=== PATIENT | female | born 1975 | race Hispanic/Latino ===

== ENCOUNTER 2019-04-16 20:38 | Inpatient (IN) | payer BC, OTHER ==
[2019-04-16 21:07] LABS: CO2 Tension (PvCO2) 44.5 mmHg (40.0-50.0); Calcium, Ionized 0.84 mmol/L (See Comments:); Chloride 105 mmol/L (98-107); Potassium 5.5 mmol/L (3.5-5.1); Sodium 139 mmol/L (138-145); T. Carbon Dioxide 29.4 mmol/L (22.0-28.0); vO2 Saturation-calc 76.3 % (60.0-85.0)
[2019-04-16 21:21] LABS: Hemoglobin 8.8 g/dL (12.0-16.0); Mean Corpuscular HGB CONC 33.1 g/dL (32.0-36.0); Mean Corpuscular Hemoglobin 29.1 pg (27.0-31.0); Mean Corpuscular Volume 87.8 fL (78.0-98.0); RBC Distribution Width 15.2 % (11.5-14.5); Red Blood Cell (RBC) Count 3.02 mill/uL (4.20-5.40); White Blood Cell (WBC) Count 4.1 thou/uL (4.8-10.8)
[2019-04-16 21:35] LABS: Lactic Acid 1.3 mmol/L (0.5-2.2)
--- NOTE | 2019-04-16 21:36 | CT ---
CT Brain WO Con: 04/16/2019 12:00 AM CLINICAL HISTORY: Altered mental status. IMAGING TECHNIQUE: Multiple CT images were obtained of the brain without IV contrast. COMPARISON: None. FINDINGS: Motion artifact limits image detail. Infarct: No acute infarct evident. Hemorrhage: None.. Hydrocephalus: None.. Basal cisterns: Normal.. Cerebral parenchyma: Normal.. Midline shift: None.. Cerebellum: Normal. Brainstem: Normal. OTHER: Calvarium: Intact.. Visualized Paranasal sinuses: Mild mucosal thickening within the maxillary sinuses.. Extracranial soft tissues:Normal. IMPRESSION: No definite acute intracranial abnormality evident within the limitations of this exam.
[2019-04-16 21:39] LABS: ALT (SGPT) 10 U/L (8-55); AST (SGOT) 22 U/L (5-34); Albumin 3.9 g/dL (3.5-5.0); Alkaline Phosphatase 175 U/L (40-150); Anion Gap 23 mmol/L (10-20); BUN (Urea Nitrogen) 83 mg/dL (7.0-18.7); Bilirubin, Total 1.9 mg/dL (0.2-1.2); CK (CPK) 74 U/L (29-168); Calc. Creatinine Clearance 0 mL/min (70-130); Calcium 7.9 mg/dL (7.8-10.44); Carbon Dioxide 25 mmol/L (22-29); Chloride 98 mmol/L (98-107); Estimated GFR-MDRD 4; Glucose 89 mg/dL (70-105); Potassium 5.5 mmol/L (3.5-5.1); Protein, Total 7.9 g/dL (6.0-8.3); Sodium 140 mmol/L (136-145)
[2019-04-16 21:50] LABS: #Eosinphils 0.2 thou/uL (0.0-0.7); #Lymphocytes 0.8 thou/uL (1.20-3.40); #Monocytes 0.4 thou/uL (0.11-0.59); #Neutrophils 2.7 thou/uL (1.40-6.50); %Eosinophils 5.2 % (0.0-10.0); %Lymphocytes 18.7 % (21.0-51.0); %Monocytes 9.6 % (0.0-10.0); %Neutrophils 66.6 % (42.0-75.0); Mean Platelet Volume 8.3 fL (7.4-10.4); Platelet Count 54 thou/uL (130-400); Platelet Morphology Comment Appears Decreased
--- NOTE | 2019-04-17 00:10 | ULT ---
BILATERAL CAROTID DUPLEX ULTRASOUND: HISTORY: Altered mental status and confusion TECHNIQUE: Grayscale, color-flow and spectral Doppler ultrasound imaging of the extracranial carotid artery syst ems and vertebral arteries was performed bilaterally. FINDINGS: There is minimal atherosclerotic plaque involving the internal carotid arteries bilaterally. The left ICA is tortuous. The peak systolic velocity in the right ICA measures 55.1 cm/s. The peak systolic velocity in the ri ght CCA measures 80.3 cm/s. The peak systolic velocity in the left ICA measures 71.3 cm/s. The peak systolic velocity in the l eft CCA measures 95.7 cm/s. The right IC/CC ration is0.69. The left IC/CC ratio is 0.75. Vertebral flow: antegrade, bilaterally. . IMPRESSION: No hemodynamically significant stenosis of bilateral internal carotid arteries.
[2019-04-17] MEDS ORDERED: Lorazepam 1 MG TAB PO SCH (08:00)
[2019-04-17] MEDS ORDERED: hydrALAZINE 20 MG/ML VIAL SLOW IVP PRN (09:56)
--- NOTE | 2019-04-17 11:12 | HP ---
CHIEF COMPLAINT: Altered mental status. HISTORY OF PRESENT ILLNESS: The history of present illness is very difficult to obtain as the patient is currently in dialysis and she is very upset. She is on the phone, talking with her mom. At times, she is yelling at her and crying and saying over and over in [place] that she thought you were going to come. I did ask her if I could talk to her mom on the phone and her mom explained to me that she had actually called to check on her yesterday and her daughter hung up on her and then says that a few hours later, she apparently had called her brother and told him that she could not walk and could not talk right and was feeling bad, and he called the mom, and she thought that was strange because she had just talked with her earlier in the day. She says that she called her daughter and she sounded bad and apparently somewhere in between this time, she called EMS and came to the hospital. It appears, however, through conversation with the daughter and the mom that it seems that the daughter is upset with the mom not coming to see about her. Apparently, the mother lives in [place], which was verified with the mother and the daughter feels like she deserves more support from her mom with regard to her children. Her mother on the other hand says that she is , but her "left" and her daughter made a decision to move to [place], where it was very difficult for the mom to come to visit her, so it appears as if it is more or less a conflict between mother and daughter. The daughter, at times, sounds slurred with her speech, but when she gets upset, her speech becomes more clear. She can speak clearly both in Setswana and in [place]. REVIEW OF SYSTEMS: This is unobtainable as the patient is currently too upset to answer my questions. PAST MEDICAL HISTORY: Significant for; 1. End-stage renal disease, on hemodialysis. 2. Hypertension. 3. Hepatitis C. PAST SURGICAL HISTORY: She has had a x2, tubal ligation, and hematoma removal. ALLERGIES: TO HEPARIN AND ADHESIVE TAPE. SOCIAL HISTORY: Taken from previous records includes she is , has 5 children, nonsmoker, and nondrinker. FAMILY HISTORY: Significant for diabetes and chronic kidney disease. MEDICATIONS: Her medications are taken. We will need to actually reconcile. PHYSICAL EXAMINATION: VITAL SIGNS: Blood pressure was 144/79, heart rate 83, respiratory rate of 18, temperature is 98.7, and O2 saturation is 92% on room air. HEENT: Pupils are equal, round, and reactive. Extraocular muscles are intact. Sclerae anicteric. Throat; no erythema, no exudates. NECK: No adenopathy. No bruits. LUNGS: Clear to auscultation. There is no wheezing, no rales, no rhonchi. CARDIOVASCULAR: She has a normal S1 and S2. There is no S3 or S4. No murmurs, clicks, or rubs. ABDOMEN: Obese. It is soft, nontender, and nondistended. Positive for bowel sounds. No rebound. No guarding. EXTREMITIES: There is no calf tenderness. No joint effusions. She does have some chronic venous stasis changes. NEUROLOGIC: She is moving all extremities. LABORATORY DATA: Sodium 139, potassium 5.5, chloride is 105, BUN of 83, creatinine 10.87, glucose is 89, total bilirubin is 1.9. White blood cell count is 4.1, hemoglobin is 8.8, hematocrit is 26.5, and platelet count is 54. ASSESSMENT AND PLAN: 1. Altered mental status. I think this is more psychological than any type of metabolic abnormality as previously stated. When I came to see the patient, she was in a fairly heated argument with her mother with regard to her feeling that her mother does not support her enough and she was able to speak clearly. We would likely can get a social work consult to see if the patient has any needs with regard to transportation or other outpatient needs to help assist her. 2. End-stage renal disease, on hemodialysis. Consult Nephrology for continued hemodialysis. 3. Hypertension. We will need to reconcile and restart her home medications and likely we can monitor her overnight for any signs of infection such as fever, elevated white blood cell count; however, so far, none of this has been evident. Lactic acid was negative. 4. Pancytopenia. This appears to be chronic dating back to 2013 and could likely be due to her history of hepatitis C. Further recommendations to follow. Job ID: [id number]
[2019-04-17] MEDS: Acetaminophen 325 MG TAB PO PRN (12:22)
[2019-04-17] MEDS ORDERED: Lorazepam 2 MG/ML VIAL SLOW IVP ONE (13:00)
--- NOTE | 2019-04-17 13:31 | PDOC.EVN ---
Event Note - Event Note Event Note: Patient noted to develop a temperature of 103, and her Oxygen saturations dropped. Will check a CXR, and check blood cultures. Start empiric antibiotics, and move her to the IMCU.
[2019-04-17 13:32] VITALS: BMI 36.8
[2019-04-17] MEDS ORDERED: Vancomycin HCl 1 GM in Premix Bag 1 BAG IVPB SCH ×2 (13:45→14:00)
--- NOTE | 2019-04-17 13:55 | RAD ---
PORTABLE CHEST 1 VIEW: DATE: 04/17/2019. TIME: 1:36 p.m. HISTORY: Fever and hypoxemia. FINDINGS/IMPRESSION: The heart is enlarged. There is a right-sided dialysis catheter with tips in the right atrium. Ther e is pulmonary vascular congestion. No lobar consolidation, pneumothoraces, or large effusions are s een. POS: OFF
[2019-04-17] MEDS ORDERED: Piperacillin/Tazobactam 3.375 GM in Sodium Chloride 0.9% 100 ML IVPB SCH (15:00)
[2019-04-17 15:19] LABS: Actual Bicarbonate (HCO3a) 27.2 mEq/L (22-28); Base Excess (BEa) 3.2 mEq/L (-2.0 to +3.0); Calcium, Ionized 0.99 mmol/L (1.12-1.30); Carboxyhemoglobin (COHb) 1.6 gm% (0.0-3.0); Hemoglobin (Hb) 8.3 g/dL (12.0-16.0); O2 Tension (PaO2) 72.8 mmHg (80.0-100.0); Potassium - ABG Lab 3.77 mmol/L (3.70-5.30); pH, Arterial 7.46 (7.35-7.45)
[2019-04-17 15:20] LABS: Puncture Site RRA
[2019-04-17] MEDS: Piperacillin/Tazobactam 2.25 GM in Sodium Chloride 0.9% 100 ML IVPB SCH ×2 (16:16→20:47)
[2019-04-17 16:26] LABS: ALT (SGPT) 8 U/L (8-55); AST (SGOT) 19 U/L (5-34); Albumin 3.2 g/dL (3.5-5.0); Alkaline Phosphatase 145 U/L (40-150); Anion Gap 18 mmol/L (10-20); BUN (Urea Nitrogen) 43 mg/dL (7.0-18.7); Bilirubin, Total 2.1 mg/dL (0.2-1.2); Calc. Creatinine Clearance 15 mL/min (70-130); Carbon Dioxide 24 mmol/L (22-29); Chloride 100 mmol/L (98-107); Estimated GFR-MDRD 7; Globulin 3.5 g/dL (2.4-3.5); Glucose 88 mg/dL (70-105); Potassium 3.9 mmol/L (3.5-5.1); Protein, Total 6.7 g/dL (6.0-8.3); Sodium 138 mmol/L (136-145)
--- NOTE | 2019-04-17 18:11 | MRI ---
BRAIN MRI WITHOUT CONTRAST: 04/17/19 COMPARISON: None. HISTORY: Altered mental status, expressive aphasia. TECHNIQUE: Multiplanar, multisequence MR imaging of the brain is obtained without contrast. FINDINGS: The diffusion weighted imaging demonstrates no evidence for acute infarction. The axial gradient echo imaging demonstrates no evidence for intracranial hemorrhage. The T2 weighted imaging is quite limited secondary to persistent patient head motion artifact. There is mild mucosa thickening involving the ethmoid air cells and the mastoid air cells. Arterial flow voids at the axial level of the skull base appear grossly unremarkable on the T2 weight ed imaging. No midline shift or mass effect. No ventricular enlargement. Regional bone marrow signal intensity is grossly unremarkable. IMPRESSION: Limited study secondary to motion artifact demonstrating no evidence for acute infarction. POS: [place]
--- NOTE | 2019-04-17 20:58 | CON ---
DATE OF CONSULTATION: 04/17/2019 CONSULTING PHYSICIAN: Kiko Logan MD REASON FOR CONSULT: End-stage renal disease. REASON FOR ADMISSION: Altered mentation. HISTORY OF PRESENT ILLNESS: This is a 43-year-old female with history of end-stage renal disease, hypertension was taken to the hospital because of altered mentation and uremic and hyperkalemia. She had dialysis and was feeling better. No chest pain or palpitation. PAST MEDICAL HISTORY: Positive for end-stage renal disease, hypertension, hepatitis C. PAST SURGICAL HISTORY: , tubal ligation, and hematoma. HOME MEDICATIONS: 1. Bicitra. 2. Procardia. 3. Calcium carbonate. ALLERGIES: TO HEPARIN. SOCIAL HISTORY: No smoking, alcohol, or illicit drugs. FAMILY HISTORY: No history of kidney disease. REVIEW OF SYSTEMS: CONSTITUTIONAL: Negative for weight loss or gain, ability to conduct usual activities. SKIN: Negative for rash, itching. EYES: Negative for double vision, pain. ENT/MOUTH: Negative for nose bleeding, neck stiffness, pain, tenderness. CARDIOVASCULAR: Negative for palpitations, dyspnea on exertion, orthopnea. RESPIRATORY: Negative for shortness of breath, wheezing, cough, hemoptysis, fever or night sweats. GASTROINTESTINAL: Negative for poor appetite, abdominal pain, heartburn, nausea, vomiting, constipation, or diarrhea. GENITOURINARY: Negative for urgency, frequency, dysuria, nocturia. MUSCULOSKELETAL: Negative for pain, swelling. NEUROLOGIC/PSYCHIATRIC: Negative for anxiety, depression. ALLERGY/IMMUNOLOGIC: Negative for skin rash, bleeding tendency. Rest are negative review of systems. PHYSICAL EXAMINATION: GENERAL: This is a well-built female, in no apparent distress. VITAL SIGNS: Temperature 98.7, pulse , blood pressure 134/81. LABORATORY DATA: Potassium 5.5, BUN is 83, creatinine is 10.9. ASSESSMENT AND PLAN: 1. End-stage renal disease. Continue on dialysis as tolerated. 2. Edema. 3. Hyperkalemia. 4. Acidosis. 5. Anemia of chronic disease. 6. Hypertension. 7. Uremia. . We will have dialysis as tolerated. Job ID: [id number]
[2019-04-18] MEDS: Piperacillin/Tazobactam 2.25 GM in Sodium Chloride 0.9% 100 ML IVPB SCH ×3 (02:56→20:38)
[2019-04-18 05:11] LABS: #Basophils 0.1 thou/uL (0.0-0.2); #Eosinphils 0.2 thou/uL (0.0-0.7); #Lymphocytes 0.6 thou/uL (1.20-3.40); #Monocytes 0.7 thou/uL (0.11-0.59); %Eosinophils 2.2 % (0.0-10.0); %Lymphocytes 8.5 % (21.0-51.0); %Monocytes 9.6 % (0.0-10.0); %Neutrophils 78.7 % (42.0-75.0); Mean Corpuscular HGB CONC 32.9 g/dL (32.0-36.0); Mean Corpuscular Hemoglobin 29.1 pg (27.0-31.0); Mean Corpuscular Volume 88.5 fL (78.0-98.0); Mean Platelet Volume 8.8 fL (7.4-10.4); Platelet Count 37 thou/uL (130-400); RBC Distribution Width 15.5 % (11.5-14.5); Red Blood Cell (RBC) Count 2.73 mill/uL (4.20-5.40); White Blood Cell (WBC) Count 7.6 thou/uL (4.8-10.8)
[2019-04-18 05:17] LABS: Anion Gap 20 mmol/L (10-20); BUN (Urea Nitrogen) 50 mg/dL (7.0-18.7); Calc. Creatinine Clearance 14 mL/min (70-130); Calcium 7.9 mg/dL (7.8-10.44); Carbon Dioxide 24 mmol/L (22-29); Chloride 100 mmol/L (98-107); Estimated GFR-MDRD 6; Glucose 65 mg/dL (70-105); Potassium 5.2 mmol/L (3.5-5.1); Sodium 139 mmol/L (136-145)
[2019-04-18] MEDS ORDERED: HOLD VANCOMYCIN FOR LEVEL >20 FS SCH (12:00)
[2019-04-18] MEDS ORDERED: Vancomycin HCl 1 GM in Premix Bag 1 BAG IVPB SCH (12:00)
[2019-04-18] MEDS ORDERED: Vancomycin HCl 750 MG in Sodium Chloride 0.9% 250 ML 250 ML IVPB SCH (12:00)
[2019-04-18] MEDS ORDERED: Vancomycin HCl 1.25 GM in Sodium Chloride 0.9% 250 ML 250 ML IVPB SCH (12:00)
[2019-04-18] MEDS ORDERED: Vancomycin Sliding Scale 1 EACH FS ONE (12:00)
--- NOTE | 2019-04-18 12:27 | PDOC.HOSPP ---
- Subjective Subjective: Seen and examined. Patient slow to respond to questions. Somewhat confused, though she does know her name and that she is in the hospital. Patient does not know why she is in the hospital despite being told multiple times. Patient emotional and starts crying easily and upset that she cannot remember things. Patient denies pain currently. Breathing well. Denies diarrhea. - Objective Vital Signs & Weight: Vital Signs (12 hours) Temp Pulse Ox 04/18/19 08:03 98 04/18/19 08:00 98.5 F 04/18/19 03:00 98.9 F Weight Admit Weight 230 lb 12.8 oz Weight 201 lb 11.2 oz Most Recent Monitor Data Heart Rate from ECG 85 NIBP 97/60 NIBP BP-Mean 72 Respiration from ECG 19 SpO2 100 I&O: 04/17/19 04/18/19 04/19/19 06:59 06:59 06:59 Intake Total 320 210 Output Total 0 0 Balance 320 210 Result Diagrams: 04/18/19 04:57 04/18/19 04:57 Radiology Reviewed by me: Yes (MRI brain) ROS - Medication Medications: Active Medications Generic Name Dose Route Start Last Admin Trade Name Freq PRN Reason Stop Dose Admin Acetaminophen 650 mg 04/17/19 09:56 04/17/19 12:22 Tylenol PO 650 mg Q4H PRN Administration Headache/Fever/Mild Pain (1-3) Lactulose 20 gm 04/18/19 09:00 04/18/19 09:52 Lactulose PO 20 gm QID CHUCHO Administration Sodium Chloride 10 ml 04/17/19 21:00 04/18/19 09:57 Flush - Normal Saline IVF 10 ml Q12HR CHUCHO Administration - Exam ill appearing Eye: PERRL Eye - other findings: EOMI ENT: normocephalic atraumatic, moist mucosa Neck: supple, symmetric, no JVD Heart: RRR, no murmur, no gallops, no rubs, III/IV Respiratory: CTAB, no wheezes, no rales, no ronchi Gastrointestinal: soft, non-tender, no guarding, no rigidity Gastrointestinal - other findings: obese Extremities: 1+ LE edema Skin: no lesions Neurological: CN's grossly intact, normal sensation to touch, no focal deficits Musculoskeletal: generalized weakness Psychiatric: oriented to person, oriented to place. negative: normal affect, normal behavior Hosp A/P (1) Toxic metabolic encephalopathy Code(s): G92 - TOXIC ENCEPHALOPATHY Status: Acute (2) ESRD (end stage renal disease) on dialysis Code(s): N18.6 - END STAGE RENAL DISEASE; Z99.2 - DEPENDENCE ON RENAL DIALYSIS Status: Chronic (3) Hepatitis C Code(s): B19.20 - UNSPECIFIED VIRAL HEPATITIS C WITHOUT HEPATIC COMA Status: Chronic (4) HTN (hypertension) Code(s): I10 - ESSENTIAL (PRIMARY) HYPERTENSION Status: Chronic - Plan Plan: [facility] Nephrology consultation, recommendations appreciated Continue HD per nephrology Patient was empiracally started on ABX. I do not see acute infectious process at this time If cultrues remain negative at 48 hours, consider de escilation of antibiotics Patient with elevated Ammonia, start Lactulose for hepatic encephalopathy - titrate to loose stools If encephalopathy not controlled on Lactulose alone would recommend GI consultation and possible Rifaximin therapy Will need outpatient follow up for Hep C BP control GI and DVT PPX
[2019-04-18 15:39] LABS: Vancomycin, Random 19.1 ug/mL (See Comment); Vancomycin, Trough 18.8 ug/mL
--- NOTE | 2019-04-18 15:54 | PRG ---
DATE OF SERVICE: 04/18/2019 SUBJECTIVE: Patient was seen and examined at bedside and overnight events noted. Patient denies any shortness of breath or chest pain or palpitation. No history of nausea or vomiting or diarrhea or fever or chills or cramps. OBJECTIVE: GENERAL: This is a well-built female in no apparent distress. VITAL SIGNS: Temperature 97.7. Heart rate 84. Respiratory rate 20. Blood pressure 108/62. HEENT: Atraumatic, normocephalic. Oral mucosa is moist NECK: Supple. CARDIOVASCULAR: S1, S2 heard. Rate and rhythm regular. RESPIRATORY: Clear to auscultation. GASTROINTESTINAL: Abdomen is soft. MUSCULOSKELETAL: No tenderness. No edema. DERMATOLOGIC: No skin rash. NEUROLOGIC: Alert and awake and oriented X3. No focal neurologic deficits. Moving all the extremities. PSYCHIATRIC: Mood and affect normal. LABORATORY DATA: Potassium is 5.2, BUN is 50, creatinine ASSESSMENT AND PLAN: 1. End-stage renal disease, continue on dialysis TTS as tolerated. 2. Edema. 3. Acidosis. 4. Anemia. 5. History of hypertension. 6. Noncompliance, counseled. 7. We will continue on dialysis as tolerated. Job ID: [id number]
--- NOTE | 2019-04-19 07:26 | CON ---
DATE OF CONSULTATION: HISTORY OF PRESENT ILLNESS: Marzena Hodge is a 43-year-old obese female, who has been in the hospital enough for several days. She was to go to MICU or floor. She came to the ICU, reason for consult. She is here with symptoms of confusion. Previous history of multiple medical problems. In the ICU, she is awake, responsive. Denies any pain. Denies any cough. Denies any chest pain. Denies any prior history of pneumonia, TB, or asthma. Nonsmoker. PAST MEDICAL HISTORY: Apparently from the records includes noncompliant renal failure, hypertension. PAST SURGICAL HISTORY: Previous surgeries are access and tubal ligation. MEDICATIONS: 1. Procardia 60. 2. Calcium. 3. Sodium bicarb. ALLERGIES: APPARENTLY, HEPARIN. SOCIAL HISTORY: No alcohol or tobacco. REVIEW OF SYSTEMS: Ten-point negative. PHYSICAL EXAMINATION: VITAL SIGNS: Room air sats 98, blood pressure 108/62, pulse respiratory rate 18 CHEST: Decreased breath sounds. No wheezing. CARDIAC: Normal S1 and S2. No gallops. ABDOMEN: No mass. LABORATORY DATA: Creatinine 7.2. White count 7000, platelet count is too low at 37, severe thrombocytopenic. Hemoglobin and hematocrit are unremarkable. Chest x-ray shows cardiomegaly. CT head was negative. Heart was enlarged. IMPRESSION: 1. Metabolic encephalopathy. 2. Febrile illness. 3. Chronic renal failure. 4. Hypertension. 5. Obesity. 6. Nonsmoker. PLAN: From a Pulmonary standpoint, I feel we should start antibiotics for presumed sepsis syndrome which I agree, anti-Staph coverage, still our cultures are negative. Dialysis per Nephrology. Supportive care while in the ICU. She appears to be in no distress at this time. Pulmonary will follow while in the ICU. Please note this is a consultation note, 70 minutes, 50% direct patient care. Job ID: [id number]
[2019-04-19 08:15] LABS: Vancomycin, Trough 16.9 ug/mL
--- NOTE | 2019-04-19 08:19 | PRG ---
DATE OF SERVICE: 04/19/2019 SUBJECTIVE: This morning, she is awake, alert, and responsive. She is less encephalopathic. OBJECTIVE: VITAL SIGNS: Blood pressure is 130/65, saturations 96% on 2 L, respirations 18. CHEST: Decreased breath sounds, no wheezing. CARDIAC: Normal S1, S2. No gallops. ABDOMEN: No masses. Microbiology cultures so far negative. ASSESSMENT: 1. Chronic renal failure. 2. Encephalopathy. 3. Possibly sepsis. Continue vanc. Continue supportive care. We will follow. Job ID: [id number]
[2019-04-19] MEDS: Piperacillin/Tazobactam 2.25 GM in Sodium Chloride 0.9% 100 ML IVPB SCH ×2 (09:49→21:02)
[2019-04-19 09:53] LABS: INR-International Normal Ratio 1.6; PTT 39.7 SEC (22.9-36.1); Prothrombin Time 18.8 SEC (12.0-14.7)
[2019-04-19 10:06] LABS: Mean Corpuscular HGB CONC 32.1 g/dL (32.0-36.0); Mean Corpuscular Hemoglobin 28.9 pg (27.0-31.0); Mean Corpuscular Volume 89.8 fL (78.0-98.0); Mean Platelet Volume 9.2 fL (7.4-10.4); Platelet Count 56 thou/uL (130-400); RBC Distribution Width 15.2 % (11.5-14.5); Red Blood Cell (RBC) Count 2.77 mill/uL (4.20-5.40)
[2019-04-19 10:08] LABS: CRP (Inflammatory) 10.14 mg/dL (= or < 0.5); Complement-C4 28.2 mg/dL (15-57)
[2019-04-19 10:56] LABS: Band 12 % (5-11); Eosinophils 11 % (0-10); Lymphocytes 12 % (21-51); MDiff Complete? YES; Monocytes 6 % (0-10); Myelocyte 1 % (0-0); Neutrophil 57 % (42-75); Platelet Morphology Comment Appears Decreased; Polychromasia SLIGHT = 2-3 cells (100X) (0-2/hpf)
[2019-04-19 10:58] LABS: Ovalocytes SLIGHT = 2-5 cells (100X) (0-1/hpf)
--- NOTE | 2019-04-19 13:01 | PRG ---
DATE OF SERVICE: 04/19/2019 SUBJECTIVE: The patient is seen and examined at the bedside. She is getting dialyzed as we speak. She has some neck pain, which is going on for years according to her, but she would like to know of what is causing that. Her appetite is good. She had several watery bowel movements today. Her mental condition is improved. OBJECTIVE: VITAL SIGNS: Blood pressure is 125/77, pulse is 76, respirations 16, and O2 saturation is 100% on room air. HEENT: Her head is atraumatic and normocephalic. Eyes are PERRLA. Sclerae are nonicteric. Oral mucosa is moist. NECK: Supple. LUNGS: Clear. HEART: S1 and S2 normal. ABDOMEN: Soft, nontender. Bowel sounds are present. No organomegaly. EXTREMITIES: No clubbing or cyanosis. There is 1+ peripheral edema similar bilaterally on both lower extremities. NEUROLOGICAL: She follows my commands. She moves her all 4 extremities. There are no any motor or sensory deficits. LABORATORY DATA: Labs showed a white count of 8.0, hemoglobin 8.0, hematocrit 24.9, and platelet count is 56,000. Ammonia 25. Lactate dehydrogenase 290. C-reactive protein 10.14. Procalcitonin 42.33. C-complement; C3 is 63, which is low and C4, which is 28.2, which is normal. Vancomycin trough 16.9. Blood cultures x2 within normal limits. IMPRESSION: 1. Sepsis of unclear etiology. We will continue broad-spectrum antibiotics with vancomycin and Zosyn. 2. End-stage renal disease, on hemodialysis. We will continue per Dr. Cast's recommendation. 3. Altered mental status, resolved. 4. Diarrhea secondary to lactulose use. We will change this dosing to twice a day from 4 times a day since she has multiple watery bowel movements. 5. Pancytopenia, most likely related to liver cirrhosis, which is possibility, although she has never been diagnosed with that thus far as we know. 6. Hepatitis C, per history, status post not completed treatment. 7. Hypertension. DISCUSSION: We will get ID, Dr. Major, involved. We will continue IV antibiotics, vancomycin and Zosyn. We will continue hemodialysis. She has some blood work sent out and we are waiting for that to come back, lupus panel. Job ID: [id number]
--- NOTE | 2019-04-19 13:12 | PRG ---
DATE OF SERVICE: 04/19/2019 SERVICE: Nephrology. SUBJECTIVE: A 43-year-old obese female with known history of end-stage renal disease from unclear etiology, possibly TTP given relationship with preeclampsia, admitted due to acute mental status changes. The patient also developed fever after hemodialysis and was started on broad-spectrum antibiotics. She reports feeling better. Nursing staff reported that the patient has get hypoxic while asleep. OBJECTIVE: VITAL SIGNS: Temperature 98.1, pulse 73, respiratory rate 18, SpO2 of 100% on 3 L nasal cannula, blood pressure is 133/65. GENERAL: Morbidly obese female, in no obvious distress. Afebrile. Anicteric. Acyanotic. HEENT: Normocephalic, atraumatic. Oral mucosa is moist. CARDIOVASCULAR: Regular rhythm and rate with systolic murmur. RESPIRATORY: Fair air entry bilateral with no obvious crackle or rhonchi or use of accessory muscles. GI: Morbidly obese, soft, nontender, nondistended with normal bowel sounds. EXTREMITIES: Grossly normal looking with no obvious edema. SKIN: Multiple hyperpigmented areas as well as papules and de-roofed pustules noticed all over the body, especially on the back. Some excoriation pettit also were noted. RESTAURANT LEAD: Conscious and alert and oriented x3 with appropriate mental status. The patient moves all extremities. DIAGNOSTIC DATA: CBC showed WBC count of 8, hemoglobin of 8.0, MCV of 89.8, platelet of 56. There is no renal panel today. ASSESSMENT: 1. End-stage renal disease, on maintenance hemodialysis. Last hemodialysis was on Tuesday. The patient is due for dialysis today. She will be dialyzed for 3-1/2 hours with UF as tolerated. Etiology of end-stage renal disease is unclear, but there is a concern for TTP given that end-stage renal disease started after , and the patient was told she had preeclampsia. 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 Given history of preeclampsia and renal failure as well as thrombocytopenia. The patient also has some skin rashes. 3. Hypertension: Control is acceptable. 4. Morbid obesity with possible obstructive sleep apnea. The patient has nocturnal desaturation at nights. 5. Secondary hyperparathyroidism. 6. History of hepatitis C, status post treatment: It is unclear whether the patient has completed therapy. 7. Liver cirrhosis. 8. Acute encephalopathy: Etiology is unclear, but hepatic encephalopathy is a concern as well as acute metabolic encephalopathy from sepsis. 9. Sepsis: The patient is on broad-spectrum antibiotics. Etiology is unclear. Development of fever associated with tachycardia and tachypnea after hemodialysis is concerning for bacteremia, but blood cultures so far has been no growth. PLAN: 1. We will dialyze the patient today for 3.5 hours with UF as tolerated. 2. We will get blood smear to look for schistocytes. We will also get LDH, CRP, ESR, antinuclear antibody with reflex. We will also get hepatitis C, PCR with reflex to quantitative and qualitative. We will also get an LDH as well as coagulation panel. 3. The patient can be transferred to the floor from Nephrology point of view as she seems hemodynamically stable. Many thanks for involving us in the care of this patient. We will continue to follow along with you. Job ID: [id number]
[2019-04-19] MEDS ORDERED: ISOVUE-370 76%-LOCM 1 ML ONE (16:18)
[2019-04-19] MEDS: Vancomycin HCl 500 MG in Sodium Chloride 0.9% 100 ML IVPB SCH (18:20)
--- NOTE | 2019-04-19 20:26 | CT ---
CT OF THE ABDOMEN AND PELVIS WITH IV CONTRAST INDICATION: Left lower quadrant abdominal pain COMPARISON: CT the abdomen dated May 13, 2003 FINDINGS: ABDOMEN: Lung bases: There is bibasilar atelectasis Liver: There is cirrhotic morphology of the liver. There is recanalization of the umbilical vein. Gallbladder: Cholelithiasis Pancreas: Normal. Adrenal glands: Normal. Spleen: Splenomegaly measuring 16.3 cm. 3 new hypodensities within the central spleen. The largest me asures 14.5 mm Kidneys: Atrophic Retroperitoneum of the upper abdomen: Shotty appearing lymph nodes within the retroperitoneum. No pat hologically enlarged lymph nodes are present. Pelvis: Small and large bowel: Normal Bladder: Decompressed Rectal and perirectal soft tissues:Normal. Reproductive structures: Normal. Free fluid in pelvis: No free fluid is evident. Lymphadenopathy pelvis: No lymphadenopathy is evident. Osseous structures: Diffuse sclerosis likely related to renal osteodystrophy. No acute fracture or gary bluxation demonstrated. There is scattered degenerative and osteoarthritic changes. IMPRESSION: 1. Cirrhosis with findings of portal hypertension. 2. New splenic hypodensities are nonspecific. Findings may reflect metastatic disease, lymphoma or in fectious etiology such as fungal disease or TB. Contrasted multiphase CT examination may be helpful for further characterization. 3. Cholelithiasis 4. Mild anasarca. 5. Renal osteodystrophy
[2019-04-19] MEDS: Rifaximin 550 MG TAB PO SCH (21:02)
--- NOTE | 2019-04-20 01:13 | CON ---
DATE OF CONSULTATION: REASON FOR CONSULT: Confusion with elevated ammonia level, end-stage renal disease, and fever. HISTORY OF PRESENT ILLNESS: Ms. Hodge is a 43-year-old female who was admitted to this hospital 3 days ago on 04/16/2019. She presented that night with family who has noted that she had called them, and she was confused, stuttering, and repeating herself. She seemed normal earlier that evening. She was brought to the emergency room. She had missed her dialysis on Tuesday. She had temperature of 99.9. Apparently, she spiked as high as 103 when she was put in the ICU. She had a white count of 4, platelet count of 54. INR 1.6. On admission was hyperkalemic with potassium of 5.5, creatinine 10, BUN 83, bilirubin 1.8, alkaline phosphatase 175, AST and ALT of 22 and 16, albumin of 3.9, and total protein of 7.9. An ammonia level done on 04/16 was normal. This was repeated on 04/17 and was 74. Now, the patient is a little bit more alert. Today, she notes that she has a history of hepatitis C and cirrhosis. She has had hepatitis C since age 14. She has had a previous biopsy in [place]. She is on end-stage renal disease from hypertension. She was previously treated in [place] and moved here about a month ago. She reports that when she moved here she had to get new medications, but she could not get a refill on lactulose. She has been without it for about 2 weeks. Presently, she denies any cough or shortness of breath, dysuria, frequency, urgency, abdominal pain, diarrhea, nausea, or vomiting. She has had blood cultures drawn on the , which are pending, no growth thus far. Immunology workup was notable for normal complement level C3 and slightly elevated C4. She had a sedimentation rate of 32. Her white count has never gone up. She has 12% bands noted today. PAST MEDICAL HISTORY: 1. She does have history of hepatitis C. 2. History of cirrhosis biopsy-proven in [place]. 3. End-stage renal disease secondary to hypertension, on dialysis. 4. Hypertension. PAST SURGICAL HISTORY: 1. Foot surgery. 2. Tubal ligation. 3. . 4. Vascular access surgeries. ALLERGIES: HEPARIN AND ADHESIVE TAPE. SOCIAL HISTORY: She is , has 5 children, nonsmoker, is . Family lives in [place]. She is living here now, and she just moved here recently. FAMILY HISTORY: Diabetes, chronic kidney disease. MEDICATIONS: She is taking lactulose at home, but she cannot tell me a lot about what else she is taking at home. List here notes she had 1. Nifedipine. 2. Bicitra. 3. Calcium carbonate. 4. Hydrocortisone cream. Present medications here in the hospital 1. Acetaminophen. 2. Vancomycin IV. 3. Hydralazine p.r.n. 4. Lactulose 20 b.i.d. 5. Zosyn. 6. Vancomycin. REVIEW OF SYSTEMS: The patient notes she has no headache. No facial or sinus congestion. No ear pain. No throat pain. No cough or shortness of breath or dyspnea. No dysphagia or odynophagia. No nausea, no vomiting, no diarrhea. She denies abdominal pain. She actually is very hungry and wants more to eat. She has no dysuria, urinary frequency, or urgency. She denies any vaginal discharge or vaginal bleeding. She has no change in menstrual cycles. She has no rashes, myalgias, or arthralgias. Denies issues with depression or anxiety. PHYSICAL EXAMINATION: VITAL SIGNS: T-max was 103 on 04/17. In the past 24 hours, T-max has been 98.1. Pulse 90, blood pressure , respirations 18. GENERAL: She is resting comfortably in bed. She is alert and oriented to person, place, and time. She is able to give me a pretty good history. HEENT: She is nonicteric. Oropharynx, no lesions. NECK: Supple without any adenopathy. LUNGS: Clear. HEART: Regular rate and rhythm. ABDOMEN: Slightly protuberant. There is no overt shifting dullness or fluid waves. No abdominal masses. No hernias. EXTREMITIES: No clubbing, cyanosis, or edema. SKIN: Without rash or lesions. LABORATORY DATA: Today, sodium 139, potassium 5.2, BUN and creatinine are 50 and 7.62, bicarb 24, anion gap 20, ammonia 25, CRP 10, procalcitonin 42, TSH 3.2, bilirubin 2.1, AST 19, and ALT , alkaline phosphatase 148. Ammonia was as high as 74 yesterday. ASSESSMENT: 1. Admitted with altered mental status. Ultimately seems this is hepatic encephalopathy related to what she has had in the past. She was out of the medication, and that may have been the cause of her exacerbation, but also she had fever when she came in, and evaluation so far has been nondiagnostic. She has had a chest x-ray, a brain MRI, and a CT of her brain. She is going to have a CT scan per Infectious Disease coming up, and she has had echocardiogram ordered. Vascular infection is concerning because she is a dialysis patient. With her cirrhosis, she is high risk for infection. She does not seem to have any SBP by physical exam, does not seem to have any overt ascites but is empirically covered presently. 2. Hepatitis C. Apparently, this has been attempted to be treated in the past but was unsuccessful. It sounds like this was done a couple of times in the [place]. 3. Hepatic encephalopathy, improved. RECOMMENDATIONS: 1. We would add Xifaxan for treatment of her hepatic encephalopathy. 2. Agree with CAT scan. We will check an alpha fetoprotein as well for hepatoma screening. We will follow along with you. There have been no signs of acute GI bleeding. 3. I agree with in-depth workup for infection as she has elevated CRP and is at high risk for infection and being in end-stage renal disease and cirrhosis. We will follow along with you. Job ID: [id number]
--- NOTE | 2019-04-20 01:19 | CON ---
DATE OF CONSULTATION: 04/19/2019 REASON FOR CONSULTATION: Fever. HISTORY OF PRESENT ILLNESS: This is a 43-year-old with history of hypertension, hepatitis C, and end-stage renal disease on hemodialysis with tunneled hemodialysis catheter in right IJ position. According to the patient, she developed renal insufficiency following her last from eclampsia or preeclampsia reportedly. At this time, she developed delirium associated with a temperature elevation of 103. BP was 140/70 and temperature 98.7, but had been 103 previously. O2 saturation 92% on room air. Lungs were clear. The heart exam showed normal findings. Abdomen was soft, nondistended or tender. Sodium 139, creatinine 10.8, white cell count 4.1, and platelets 54,000. Initial lab data included ammonia of 74. Thus far, we have 2 sets of blood cultures with no growth at 48 hours. Brain MRI was not remarkable. Chest x-ray with cardiomegaly, pulmonary vascular congestion. Complement was 63 and bilirubin 1.9. Transaminases normal. Alkaline phosphatase 175. Previous hepatitis C RNA PCR was 21,000 in 2013. Currently, Ms. Hodge is awake. She is still a little bit confused and had a hard time in giving me an exact timeline of her symptoms and still, but better than on admission. Denies headaches. No visual symptoms. No back pain. No dyspnea. Little a bit of cough. No abdominal pain. No genitourinary symptoms. PAST MEDICAL HISTORY: Chronic hepatitis C, untreated; end-stage renal disease, on hemodialysis, the etiology for the ESRD is not clear, but presumably after one of her pregnancies; hypertension. PAST SURGICAL HISTORY: and tubal ligation. ALLERGIES: HEPARIN. SOCIAL HISTORY: , 5 children. Never smoker. No alcoholic beverage use or drug use. FAMILY HISTORY: Type 2 diabetes and chronic renal insufficiency. CURRENT MEDICATIONS: 1. Apresoline. 2. Lactulose. 3. Zosyn. 4. Vancomycin. 5. Sliding scale. PHYSICAL EXAMINATION: VITAL SIGNS: T-max 103 two days ago at 5 p.m., has been afebrile since. BP 150/69, pulse 83, respirations 19, and O2 saturation 95%. SKIN: Areas of folliculitis in the back region with self excoriation, more like prurigo nodularis type of finding in the skin from self excoriation, probably related to end-stage renal disease associated pruritus. The patient has a tunneled hemodialysis catheter in right IJ position and peripheral IV access. No lymphadenopathy. GENERAL: Awake, appears in no distress. HEENT: Ocular movements conjugate. Sclerae white. Oral cavity dry. Quite a few teeth in place with desiccation of the enamel. NECK: Supple. No jugular vein distention. LUNGS: Symmetric, clear breath sounds. HEART: S1 and S2, regular rate without murmurs. ABDOMEN: Soft, not distended or tender. No ascites. No bladder distention. MUSCULOSKELETAL: No joint inflammatory activity. Pulses are 1+ in dorsalis pedis. 1+ edema. Moves extremities equally. NEUROLOGIC: She is awake, knows her name. She knew she was in the hospital, but after that she had a quite a bit of difficulty in giving me a proper timeline of her clinical symptom development and other items in her past history that she could not recall very well. LABORATORY DATA: Latest lab results with a potassium of 5.2, LDH 290, CRP 10.14. White cell count 8.0, hemoglobin 8, MCV 89, platelets 56 with 12% bands. IMAGING: Chest x-ray, as discussed above. ASSESSMENT: 1. End-stage renal disease, presumably secondary to complications following one of her pregnancies. 2. Hemodialysis through a tunneled catheter in the right IJ position. 3. Prurigo nodularis. 4. Recurrent fever events for the past many weeks, sometimes related to dialysis. 5. Chronic hepatitis C, untreated. 6. Encephalopathy, a part of it an element of hepatic encephalopathy, but part of it associated with whatever is causing her fever. DISCUSSION: Differential diagnosis includes bacteremia associated with colonization of hemodialysis catheter versus transient bacteremia secondary to her skin lesions or translocation, an alternate process, for example complication of her hepatitis C including possibility of hepatoma. We will monitor her blood cultures. This is the second day, and if the final blood cultures are negative, then could consider Karius test to see if she has bacteremia nonetheless or fungemia that is under the limit of detection by the blood culture method. Ultrasound of her liver and/or CT scan of the abdomen and pelvis with contrast. We will also order a 2D echocardiogram in view of the abnormal heart exam. Job ID: [id number]
[2019-04-20 05:08] LABS: INR-International Normal Ratio 1.4; Prothrombin Time 17.3 SEC (12.0-14.7)
[2019-04-20 05:26] LABS: Iron 163 ug/dL (50-170); Iron Binding Capacity, Total 198 mcg/dL (265-497)
[2019-04-20] MEDS ORDERED: Epoetin (ESRD) 20,000 UNITS/ML IVP SCH (07:00)
[2019-04-20] MEDS ORDERED: EPOETIN ALFA-EPBX (ESRD) 2,000 UNIT/ML VIAL SC SCH (07:30)
[2019-04-20] MEDS ORDERED: EPOETIN ALFA-EPBX (ESRD) 3,000 UNIT/ML VIAL SC SCH (07:30)
--- NOTE | 2019-04-20 08:25 | PRG ---
DATE OF SERVICE: 04/20/2019 SUBJECTIVE: This morning, she is eating breakfast, awake, alert, and responsive. OBJECTIVE: VITAL SIGNS: Blood pressure 137/86, pulse 80, respiratory rate 18, and afebrile. CHEST: Decreased breath sounds. No wheezing. CARDIAC: Normal S1 and S2. No gallops. ABDOMEN: No masses. NEUROLOGICAL: She is very appropriate. LABORATORY DATA: INR is 1.4. Chemistry profile shows the previously described creatinine of 7.62. ASSESSMENT: Chronic renal failure, hepatitis, encephalopathy. Cultures are negative. PLAN: Pulmonary villanueva, continue supportive care, PT. I would deescalate antibiotics since all cultures are negative. Multiple consultations on board. Pulmonary Critical Care will follow in the ICU. Job ID: [id number]
[2019-04-20] MEDS: Piperacillin/Tazobactam 2.25 GM in Sodium Chloride 0.9% 100 ML IVPB SCH ×2 (09:53→21:00)
[2019-04-20] MEDS: Rifaximin 550 MG TAB PO SCH ×2 (09:53→20:01)
--- NOTE | 2019-04-20 10:38 | PRG ---
DATE OF SERVICE: 04/20/2019 SERVICE: Nephrology. SUBJECTIVE: A 43-year-old female with end-stage renal disease, being followed up for management of end-stage renal disease. The patient was admitted due to mental status change and had fever while in this hospital. She is still getting broad-spectrum antibiotics while the patient continued to be evaluated for the cause of the fever. She overall is clinically improved and is tolerating oral intake. Last dialysis was yesterday April 19, 2019. She denied chest pain, palpitations, nausea, vomiting, abdominal pain, or dysuria. OBJECTIVE: VITAL SIGNS: Temperature 98.3, heart rate 86, blood pressure 137/86, respiratory rate 21, and SpO2 of 93% on room air. GENERAL: Obese female, in no distress. Afebrile. Anicteric. Acyanotic. HEENT: Normocephalic, atraumatic. Oral mucosa is moist. CARDIOVASCULAR: Regular rhythm and rate with normal heart sounds 1 and 2. Systolic murmur noted. RESPIRATORY: Fair air entry bilaterally with few transmitted sounds. No obvious respiratory distress appreciated. GI: Obese, soft, nontender, nondistended with normal bowel sounds. EXTREMITIES: No edema or erythema appreciated. SKIN: Patchy hyperpigmented spots and some deroofed possible septic spots noted all over the body. No erythema is appreciated. NEUROLOGIC: Conscious, alert, and oriented x3 with appropriate mental status. Cranial nerves 2 through 12 are intact. The patient moves all extremities. DIAGNOSTIC DATA: Iron study showed serum iron 163, TIBC 198, ferritin 457. Tumor marker is 2.2. Manual blood smear was negative for schistocytes. Hemoglobin on April 19 was 8.0. ASSESSMENT AND PLAN: 1. End-stage renal disease, on maintenance hemodialysis. Last dialysis was on April 19, 2019. Etiology of end-stage renal disease is unclear. Thrombotic thrombocytopenic purpura of preeclampsia is considered as possible etiology. 2. Chronic thrombocytopenia: Etiology is unclear. Thrombotic thrombocytopenic purpura is unlikely with negative schistocytes on peripheral blood smear. 3. Hypertension: Controlled. 4. Morbid obesity with possible obstructive sleep apnea. 5. Secondary hyperparathyroidism. 6. History of hepatitis C status post treatment. Quantitative hepatitis C PCR is awaited. 7. Liver cirrhosis. 8. Acute encephalopathy: 9. Pneumonia. 10. Source of infection remains unclear. Infectious Diseases are now on the case. We will start electrolyte stimulating agents as iron chemistry is suggestive of anemia of chronic kidney disease. 11. We will await other diagnostic tests or that including antinuclear antibodies as well as hepatitis C PCR. Appreciate input from Infectious Diseases and GI. 12. We will continue maintenance hemodialysis Tuesday, , and Tuesday in line with patient's outpatient schedule. There is no indication for hemodialysis today. We will plan on dialyzing the patient tomorrow. Job ID: [id number]
--- NOTE | 2019-04-20 13:15 | PRG ---
DATE OF SERVICE: 04/20/2019 SUBJECTIVE: The patient is seen and examined at the bedside. She feels significantly better. Her mental condition is good. OBJECTIVE: VITAL SIGNS: Blood pressure is 117/63, pulse is 86, respiratory rate is 24, O2 saturation is good. HEENT: Head is atraumatic and normocephalic. Eyes are PERRLA. Sclerae are nonicteric. Conjunctiva is somewhat palish. Oral mucosa, moist. NECK: Supple. LUNGS: Clear. HEART: S1 and S2 normal. ABDOMEN: Soft, obese, nontender. EXTREMITIES: No clubbing, cyanosis, or edema. NEUROLOGICAL: She follows my commands. She moves all 4 extremities. LABORATORY DATA: Labs showed AFP 2.2, iron 163, TIBC 198, ferritin 457.24. INR 1.4. PT of 17.3. Total IgG 2031, total IgM 116. IMPRESSION: 1. Sepsis of unclear etiology, since ID was consulted and Dr. Major recommends a Karius testing on her blood since the blood cultures are not growing anything, but her procalcitonin is very high, which is suggestive of some infection, bacterial etiology. We will continue vancomycin and Zosyn for now. 2. End-stage renal disease, on hemodialysis per Nephrology recommendation. 3. Altered mental status, resolved. 4. Diarrhea secondary to lactulose. The dose was adjusted. 5. Pancytopenia secondary to liver cirrhosis. Apparently, the patient was given this diagnosis in the past and even she had I believe biopsy. The patient was seen by Dr. Avalos, who recommends to do hepatoma screening, and ultrasound on her abdomen will be done today. 6. Hepatitis C, status post treatment, but not completed. 7. Hypertension. DISCUSSION: We will continue her IV antibiotics for now. We are going to do Karius test on her blood. We are still waiting for several tests, which are sent out for lupus, and we will transfer her to the medical floor. Job ID: [id number]
[2019-04-20 16:19] LABS: ANA Symphony (Qualitative) Negative (Negative); ANA Symphony (Quantitative) 0.3 Ratio (< 0.7 Negative); dsDNA IgG Antibody 1.7 IU/mL (<10 Negative)
[2019-04-20 16:30] LABS: EliA Vaculitis New Method **** NEW METHOD ****; Mitochondrial Ab Less than 0.5 U/mL (<4 Negative)
--- NOTE | 2019-04-20 17:07 | PRG ---
DATE OF SERVICE: 04/20/2019 SUBJECTIVE: Ms. Hodge is feeling better, more alert and oriented. No chest pain. No abdominal pain. No joint symptoms. OBJECTIVE: VITAL SIGNS: Show T-max 98.7, blood pressure 122/76, pulse 78, respirations 20, O2 saturation 95. SKIM: She has those areas in the skin which appear like to represent folliculitis or areas of prurigo, although some at distributional aspect in the back argues against a prurigo nodularis. LUNGS: Clear. CARDIOVASCULAR: S1 and S2, regular rate. ABDOMEN: Soft, without tenderness. EXTREMITIES: Moves all extremities. LABORATORY DATA: White cell count 8.0, hemoglobin 8, platelets 56,000, 12% bands. Ferritin 459. LDH 290. CRP 10.14. Complement was 63. IgG total 2031. Microbiology, negative blood cultures x2. CT of abdomen and pelvis, cirrhosis and splenic hypodensities noted. There are also some areas of lymphadenopathy in the retroperitoneal area. The lymph nodes were not particularly large. ASSESSMENT: 1. End-stage renal disease, probably secondary to complications following one of her pregnancies. 2. Hemodialysis through a tunneled catheter in the right IJ position. 3. Skin lesions. 4. Recurrent fever. 5. Chronic hepatitis C, untreated, with liver cirrhosis. 6. Encephalopathy. 7. Splenic lesions. DISCUSSION: Differential diagnosis includes an opportunistic infectious process, for example endocarditis or bacteremia, fungemia, or Mycobacterium tuberculosis infection with splenic involvement versus lymphoma. We will submit Karius test to see if she has detectable infectious pathogens that might prevent or forego the need for biopsy procedure for diagnostic purposes. The echocardiogram is pending at this time. Job ID: [id number]
--- NOTE | 2019-04-20 17:26 | ULT ---
EXAM: US Abdominal CLINICAL HISTORY: Cirrhosis. COMPARISON: None. FINDINGS: Pancreas: The head of pancreas has a normal echotexture. The remainder the pancreas is obscured by b owel gas IVC: Visualized IVC is a normal caliber Aorta: Visualized aorta has a normal caliber Liver:Increased echogenicity of the liver is presumed to be due to hepatocellular disease or hepatic steatosis. Subsequent limited evaluation for hepatic masses and intrahepatic biliary dilatation. Right hepatic lobe measures 17.3 cm Gallbladder: Suboptimal evaluation. Gallbladder appears to be contracted. Butler's sign:Negative CBD: 0.4 cm diameter of the common bile duct Right kidney: Severe renal cortical thinning. No hydronephrosis. Right kidney measuring 6.4 x 2.8 x 4 .2 cm in length. Left kidney: Not appreciated. Spleen: Splenomegaly. Spleen measures 5.3 x 5.8 x 15.8 cm. IMPRESSION: Markedly limited exam due to body habitus, bowel gas and patient's inability to cooperate. Suboptimal evaluation the liver and other solid organs. No obvious masses in the liver. There is marked atrophy of the right kidney without evidence of hydronephrosis. Suboptimal evaluation the gallbladder . Please refer to a abdomen pelvis CT performed 04/19/2019 for further information.
--- NOTE | 2019-04-20 21:29 | PRG ---
DATE OF SERVICE: 04/20/2019 SUBJECTIVE: Ms. Hodge is much more alert. She is without complaints. She did have a CAT scan that showed some splenic lesions, which are being worked up for possible opportunistic infection. If this is negative, she may need to be evaluated for lymphoma or malignancy. There were no overt liver lesions. There was no evidence of ascites. So far, her blood cultures are negative. She does note that she feels that the Xifaxan pills cause her to have back pain. She is having about 3 bowel movements a day on lactulose. OBJECTIVE: VITAL SIGNS: Temperature is 98.6, pulse 56, blood pressure 110/71. ABDOMEN: Soft and nontender. She has no rebound or guarding. LABORATORY DATA: None today. Iron stores were normal. CRP came back at 11 yesterday. AFP was 2.2. Immunology negative for autoimmune liver disease. ASSESSMENT AND PLAN: 1. Hepatic encephalopathy, improved. We will hold off on the Xifaxan as she seems doing fine on the lactulose and it seems to be giving her some problems. 2. We will address hepatitis C via an outpatient setting. 3. ID workup is planned. We will follow along with you. Job ID: [id number]
[2019-04-21 06:32] LABS: #Basophils 0.1 thou/uL (0.0-0.2); #Lymphocytes 1.1 thou/uL (1.20-3.40); #Monocytes 0.4 thou/uL (0.11-0.59); #Neutrophils 2.5 thou/uL (1.40-6.50); %Basophils 1.3 % (0.0-1.0); %Eosinophils 19.4 % (0.0-10.0); %Lymphocytes 21.3 % (21.0-51.0); %Monocytes 8.7 % (0.0-10.0); %Neutrophils 49.4 % (42.0-75.0); Mean Corpuscular Hemoglobin 29.6 pg (27.0-31.0); Mean Corpuscular Volume 89.6 fL (78.0-98.0); Mean Platelet Volume 8.1 fL (7.4-10.4); Platelet Count 60 thou/uL (130-400); RBC Distribution Width 15.2 % (11.5-14.5); White Blood Cell (WBC) Count 5.1 thou/uL (4.8-10.8)
[2019-04-21 06:45] LABS: ALT (SGPT) 9 U/L (8-55); AST (SGOT) 18 U/L (5-34); Albumin 3.2 g/dL (3.5-5.0); Alkaline Phosphatase 116 U/L (40-150); Anion Gap 17 mmol/L (10-20); BUN (Urea Nitrogen) 44 mg/dL (7.0-18.7); Calc. Creatinine Clearance 15 mL/min (70-130); Calcium 8.1 mg/dL (7.8-10.44); Carbon Dioxide 25 mmol/L (22-29); Chloride 100 mmol/L (98-107); Estimated GFR-MDRD 6; Globulin 3.6 g/dL (2.4-3.5); Glucose 81 mg/dL (70-105); Potassium 4.1 mmol/L (3.5-5.1); Protein, Total 6.8 g/dL (6.0-8.3); Sodium 138 mmol/L (136-145)
[2019-04-21 06:47] LABS: Vancomycin, Random 19.9 ug/mL (See Comment)
[2019-04-21] MEDS ORDERED: Epoetin (ESRD) 20,000 UNITS/ML IVP SCH (06:57)
[2019-04-21] MEDS: Piperacillin/Tazobactam 2.25 GM in Sodium Chloride 0.9% 100 ML IVPB SCH ×2 (08:34→20:10)
[2019-04-21] MEDS: EPOETIN ALFA-EPBX (ESRD) 3,000 UNIT/ML VIAL SC SCH (10:30)
[2019-04-21] MEDS: EPOETIN ALFA-EPBX (ESRD) 2,000 UNIT/ML VIAL SC SCH (10:31)
--- NOTE | 2019-04-21 13:27 | PRG ---
DATE OF SERVICE: 04/21/2019 SUBJECTIVE: The patient is seen and examined at bedside. She is looking better every day. She tolerates food without any problem. She does not have much complaints to offer. She is supposed to have dialysis today. OBJECTIVE: VITAL SIGNS: Blood pressure is 129/81, pulse is 86, temperature is 98.6, maximal temperature is 99.2, respiratory rate is 20, O2 saturation is 94% on room air. HEENT: Head is atraumatic and normocephalic. Eyes are PERRLA. Sclerae are nonicteric. Oral mucosa is moist. NECK: Supple, obese. LUNGS: Breath sounds are somewhat diminished at both bases. No wheezing. No rales. HEART: S1 and S2 are normal. No S3. No S4. ABDOMEN: Soft, obese, and nontender. EXTREMITIES: No clubbing, cyanosis, or edema. NEUROLOGIC: She follows my commands. She moves her all 4 extremities. LABORATORY DATA: Showed white count of 5.1, hemoglobin 8.0, hematocrit 24.2, platelet count is 60. Chemistry showed normal electrolytes, creatinine 7.04. Her rest of the chemistry within normal limits. Vancomycin 19.9. Her lupus panel came back negative. Echocardiogram showed LVEF estimated at 55% to 60% with borderline concentric left ventricular hypertrophy, moderately enlarged right ventricular cavity, and pressure-overloaded right ventricle. The left atrium is [id number] dilated with moderate mitral regurgitation and moderate tricuspid regurgitation. There is a small trivial pericardial effusion. IMPRESSION: 1. Sepsis of unclear etiology with negative blood cultures. We will order Karius test today. Her procalcitonin is very elevated suggestive of significant bacterial infection. We will continue vancomycin and Zosyn until we have further evidence of the type of infection we are dealing with. Clinically, she looks much better. 2. End-stage renal disease, on hemodialysis, per session today. 3. Altered mental status, resolved. 4. Liver cirrhosis. 5. Hepatitis C, status post not completed treatment. 6. Hypertension. Job ID: [id number]
[2019-04-21] MEDS: Acetaminophen 325 MG TAB PO PRN (15:02)
[2019-04-21] MEDS ORDERED: Ketorolac Tromethamine 30 MG/ML VIAL ONE (15:17)
[2019-04-21] MEDS ORDERED: Lidocaine 1% (PF) 30 ML VIAL ONE (15:25)
--- NOTE | 2019-04-21 15:50 | PRG ---
DATE OF SERVICE: 04/21/2019 SERVICE: Nephrology. SUBJECTIVE: A 43-year-old female with end-stage renal disease from unclear etiology, admitted due to acute mental status change. The patient later developed fever during dialysis and is currently on broad-spectrum antibiotics. Mental status has improved and fever subsided and the patient during dialysis earlier today developed febrile illness with temperature of above 101 associated with chills. Dialysis was via a right IJ tunneled dialysis catheter placed in August 2018 in [place]. OBJECTIVE: VITAL SIGNS: Temperature 101.3, pulse 99, respiratory rate 22, SpO2 94%, and blood pressure is 129/81. GENERAL: Obese female, in mild distress. HEENT: Normocephalic and atraumatic. Oral mucosa is moist. CARDIOVASCULAR: Regular rhythm and rate with normal heart sounds. Systolic murmur noted. RESPIRATORY: Fair air entry bilaterally with no obvious crackle or rhonchi. GI: Obese, soft, nontender, nondistended with normal bowel sounds. EXTREMITIES: Grossly normal looking, atraumatic with no edema or erythema. SKIN: Multiple scattered patchy hyperpigmentation noticed on the legs and the trunk. No erythema appreciated. RESIDENT CARE MANAGER RN: Conscious and alert and oriented x3 with appropriate mental status. Cranial nerves 2 through 12 are grossly intact. DIAGNOSTIC DATA: CBC earlier today showed WBC count of 5.1, hemoglobin of 8.0, platelet of 60. BMP today showed sodium 138, potassium 4.1, chloride 100, CO2 25, BUN 44, creatinine 7.04, glucose 81, calcium 8.1, total bilirubin 1.0, AST 18, ALT 9, alkaline phosphatase 116, total protein 6.8, albumin 3.2, globulin 3.6. Iron chemistry showed iron 163, TIBC 198, ferritin 457.24. ASSESSMENT: 1. Febrile illness of unclear etiology. This happening mostly after dialysis, it is suggestive of line infection with possible colonization of the dialysis catheter with intermittent bacteremia, especially during use of the access. Blood culture from the dialysis catheter is obtained as well as another set from peripheral. 2. End-stage renal disease, on hemodialysis Tuesday, , and Tuesday. 3. Anemia of chronic kidney disease. 4. Secondary hyperparathyroidism. 5. Acute encephalopathy: Improved. 6. Sepsis: The patient is currently on antibiotics. 7. Hepatitis C infection: Awaiting hepatitis C PCR with titer. 8. Liver cirrhosis: Compensated. 9. Hypertension: Blood pressure control is adequate and acceptable. 10. Chronic thrombocytopenia. 11. Possible catheter associated bloodstream infection. PLAN: 1. We will get blood culture from the dialysis catheter as well as from a peripheral access. 2. We will consult General surgery to remove the tunneled dialysis catheter and send tip for culture. 3. General surgery also will be consulted to look at the AV fistula on the left arm with a view to doing the second stage of repositioning. 4. Continue broad-spectrum antibiotics as per Infectious Diseases. 5. Await other diagnostic tests ordered. 6. We will likely get a temporary dialysis catheter placement on Tuesday to facilitate dialysis on Tuesday. Job ID: [id number]
[2019-04-21] MEDS ORDERED: Ketorolac Tromethamine 30 MG/ML VIAL IVP SCH (16:00)
[2019-04-21] MEDS ORDERED: Ketorolac Tromethamine 15 MG/ML VIAL IVP SCH (16:00)
[2019-04-21] MEDS ORDERED: Acetaminophen 325 MG TAB PO SCH (16:00)
[2019-04-21] MEDS: Vancomycin HCl 500 MG in Sodium Chloride 0.9% 100 ML IVPB SCH (17:41)
--- NOTE | 2019-04-21 18:03 | PDOC.OP ---
Operative Note - Operative Note Operative Note: PROCEDURE: Removal of tunneled hemodialysis catheter SURGEON: Erickson Lawrence M.D. DATE OF PROCEDURE: 04/21/2019 PREOPERATIVE DIAGNOSIS: Suspected colonization of tunneled hemodialysis catheter with ongoing fevers on dialysis After informed consent was obtained, the patient was placed in the supine position. The right neck and chest were prepped with ChloraPrep. Local anesthesia was infused to the skin and subcutaneous tissues surrounding the subcutaneous cuff and the cuff was dissected free of the surrounding subcutaneous tissue. The catheter was then removed during exhalation and a sterile gauze and Tegaderm dressing placed at that site. Pressure was held for 5 minutes and hemostasis confirmed. Estimated blood loss was minimal. There were no complications. Tip was sent for culture.
--- NOTE | 2019-04-21 18:43 | PRG ---
DATE OF SERVICE: 04/21/2019 SUBJECTIVE: Ms. Hodge had a fever of 105 last night. Otherwise, she is feeling better now. Nurses note she applied an ice and she was given Toradol and Tylenol. OBJECTIVE: VITAL SIGNS: T-current 98.6, I do not see the temperature documented at this point in time, pulse 86, blood pressure 129/81, respirations 16. ABDOMEN: Soft, nontender. LABORATORY DATA: White count 5.1, hemoglobin 8, platelet count 60,000. Sodium 138, potassium 4.1, BUN and creatinine are 44 and 7.04. Liver function tests normal. Albumin 3.2, protein 6.8. ASSESSMENT: 1. Hepatic encephalopathy, improved. 2. Fever of unknown origin. Workup is pending. 3. Abnormal CT scan. Infection versus lymphoma. Workup is pending. 4. Dialysis catheter in the right subclavian was removed by Surgery secondary to ongoing fever. 5. Hepatitis C. Prior failure of treatment. Noncompliance/inability to follow up with therapy. 6. Cirrhosis decompensated with hepatic encephalopathy, prior history of ascites. 7. Hepatoma screening, negative. RECOMMENDATIONS: Continue lactulose. ID workup in progress. We will follow along with you. Job ID: [id number]
[2019-04-22] MEDS: Piperacillin/Tazobactam 2.25 GM in Sodium Chloride 0.9% 100 ML IVPB SCH ×2 (08:08→19:50)
--- NOTE | 2019-04-22 09:52 | PRG ---
DATE OF SERVICE: 04/22/2019 SUBJECTIVE: The patient is seen and examined at the bedside. She is very drowsy. She falls asleep during my visit. She is arousable. She says that she could not sleep last night. She was up most of the night. OBJECTIVE: VITAL SIGNS: Blood pressure is 92/57, pulse is 86, temperature is 99.1, respiratory rate is 16, pulse oximetry is 92% on room air. HEENT: Her head is atraumatic and normocephalic. Eyes are PERRLA. Sclerae are nonicteric. Oral mucosa is moist. NECK: Supple. LUNGS: Clear. HEART: S1 and S2 normal. No S3. No S4. The tunneled catheter from the right upper chest was removed yesterday. ABDOMEN: Soft, nontender, nondistended. EXTREMITIES: She has skin discoloration on her both lower extremities below the knees that is chronic. No swelling. NEUROLOGIC: She is drowsy. She follows my commands. She is arousable. She moves her all 4 extremities. There are no any motor deficits. LABORATORY DATA: Procalcitonin is 613 and microbiology, preliminary report on catheter tip from yesterday, negative so far. Two blood cultures from yesterday, preliminary no growth. IMPRESSION: 1. Fever of unclear etiology with negative blood cultures and Karius test was sent out. Procalcitonin is even more elevated than what it was before. She is on vancomycin and Zosyn. We will continue broad coverage. 2. Hypotension without tachycardia. The patient is sleeping, so this could be a part of the picture. Her blood pressure is running on the lower side. She was dialyzed yesterday. We will talk to Dr. Cast, her detailer pharmaceuticals and see whether this needs to be treated according to Nephrology perspective. 3. End-stage renal disease, on hemodialysis. She will get an IV access by General Surgery, I believe, on Tuesday to have this hemodialysis session on Tuesday. 4. Altered mental status, resolved. 5. Comatose state this morning. We will check ammonia level. 6. Liver cirrhosis. 7. Hepatitis C, status post not completed treatment. 8. Hypertension per history. 9. Hepatoma screening negative. Job ID: [id number]
[2019-04-22 10:51] LABS: HBCM Index 0.07 S/CO (0-0.79); Hep A IgM AB Non-Reactive (NonReactive); Hep A IgM S/CO 0.13 S/CO (0-0.79); Hep B Surf Ag Non-Reactive S/CO (NonReactive); Hepatitis B Core IgM Abs Non-Reactive (NonReactive)
[2019-04-22 10:58] LABS: Hep C IgG Ab Reflex HepC Qnt (NonReactive)
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
[2019-04-22 13:47] LABS: Ref Lab Test Ordered KARIUS TEST; Reference Lab Name KARIUS
--- NOTE | 2019-04-22 13:55 | PRG ---
DATE OF SERVICE: 04/22/2019 SERVICE: Nephrology. SUBJECTIVE: A 43-year-old female with end-stage renal disease, admitted due to acute encephalopathy. The patient has been having intermittent fever, especially during and after hemodialysis. Thought to have dialysis catheter associated infection and catheter was removed yesterday. Reports feeling better. Fever has subsided. OBJECTIVE: VITAL SIGNS: Temperature 99.7, pulse 79, respiratory rate 18, SpO2 of 94% on room air, blood pressure is 100/63. GENERAL: Obese female, in no distress. Afebrile. HEENT: Normocephalic, atraumatic. Oral mucosa is moist. CARDIOVASCULAR: Regular rhythm and rate with normal heart sounds 1 and 2. Systolic murmur noted. RESPIRATORY: Fair air entry bilaterally with no obvious crackle or rhonchi or use of accessory muscles. GASTROINTESTINAL: Obese, soft, nontender, nondistended with normal bowel sounds. EXTREMITIES: Grossly normal, looking atraumatic with no edema or erythema. CENTRAL NERVOUS SYSTEM: Conscious and alert and oriented x3 with appropriate mental status. Cranial nerves 2 through 12 are grossly intact. DIAGNOSTIC DATA: CBC of April 21, 2019, showed WBC of 5.1, hemoglobin of 8.0, platelets of 60. CMP of April 21 showed sodium 138, potassium 4.1, chloride 100, CO2 of 25, BUN 44, creatinine 7.04, glucose 81, calcium 8.1. ASSESSMENT AND PLAN: 1. Presumed dialysis catheter associated infection: Tunneled dialysis catheter was removed after dialysis on April 21, 2019. Catheter tip was sent for culture as well as repeat blood cultures, which are pending at this time. 2. Intermittent febrile illness. 3. End-stage renal disease, on hemodialysis Tuesday, , and Tuesday. 4. Anemia of chronic kidney disease: We will continue electrolyte stimulating agent therapy. 5. Secondary hyperparathyroidism: Continue Sensipar. 6. Acute encephalopathy thought to be related to metabolic and hepatic encephalopathy: Resolved. 7. Sepsis: Related to presumed dialysis catheter associated infection,still on antibiotics. 8. History of hepatitis C infection, status post treatment, which may not have been completed. Repeat hepatitis C PCR quantitative was negative. We will get repeat acute hepatitis panel and get Gastroenterology to re-evaluate the patient. 9. Liver cirrhosis: Compensated. No acute issues. 10. Hypertension: Blood pressure is adequately controlled. Blood pressure seems to be running soft currently. We will hold antihypertensives. 11. Chronic thrombocytopenia: Improving. 12. We will plan on getting a temporary dialysis catheter on Tuesday and dialyze the patient after that. 13. Other treatment as per primary attending. Job ID: [id number]
--- NOTE | 2019-04-22 16:58 | PRG ---
DATE OF SERVICE: 04/22/2019 SUBJECTIVE: Ms. Hodge is without complaints today. She had no fever last night. OBJECTIVE: VITAL SIGNS: T-max 99.3, pulse 79, blood pressure 101/63. HEENT: She is nonicteric. NEUROLOGIC: She is alert and oriented. ABDOMEN: Soft and nontender. EXTREMITIES: No clubbing, cyanosis, or edema. She has no asterixis. LABORATORY DATA: Ammonia was 22 today. Under Karius, no organisms were identified apparently. HCV RNA is negative. ASSESSMENT AND PLAN: 1. Cirrhosis, presumptively from hepatitis C, which has been treated in the past, decompensated with hepatic encephalopathy. This was exacerbated with remission, which was felt to be related to infection as she had high fevers versus deficiency of lactulose, which she could not get filled after moving here. 2. Hepatoma screen negative. 3. No signs of coagulopathy or ascites at this time. She notes she has never had varices on upper endoscopy in the past. 4. Fever of unknown origin with a splenic lesion and negative Karius test. We will consider other causes such as lymphoma as she has had some liver or splenic lesions. At this point in time, from GI standpoint, no further recommendation she needs other than the fact that she will need q.6 months hepatoma screening. We will follow from a distance with you. Job ID: [id number]
--- NOTE | 2019-04-22 18:24 | PDOC.GSPN ---
Surgery Progress Note: Subj - Subjective Narrative: Patient is feeling better since her dialysis catheter was removed. No further fevers. Exit site looks good. No bleeding from the site. I spoke with Dr. Cast about replacing her dialysis catheter. He is going to discuss with infectious disease whether she needs to have a femoral catheter temporarily or whether we can plan on putting in another tunneled catheter on Tuesday. So far her cultures are still negative. Surgery Progress Note: Obj - Vital signs Vital signs: Vital Signs - Most Recent Temp Pulse Resp BP Pulse Ox 98.7 F 85 18 101/63 93 L 04/22/19 15:58 04/22/19 15:58 04/22/19 15:58 04/22/19 15:58 04/22/19 15:58 Surgery Progress Note: Results - Labs Result Diagrams: 04/21/19 06:17 04/21/19 06:17 Lab results: Laboratory Results - last 24 hr 04/20/19 04/20/19 04/22/19 04:29 13:10 08:37 Ammonia 22 Hepatitis A IgM Ab Non-Reactive Hep Bs Antigen Non-Reactive Hep B Core IgM Ab Non-Reactive Hepatitis C Antibody Reflex HepC Qnt H Miscellaneous Test
[2019-04-23 06:25] LABS: #Basophils 0.1 thou/uL (0.0-0.2); #Eosinphils 0.7 thou/uL (0.0-0.7); #Lymphocytes 0.9 thou/uL (1.20-3.40); #Monocytes 0.7 thou/uL (0.11-0.59); #Neutrophils 3.3 thou/uL (1.40-6.50); %Basophils 1.3 % (0.0-1.0); %Eosinophils 12.6 % (0.0-10.0); %Lymphocytes 16.1 % (21.0-51.0); %Monocytes 11.5 % (0.0-10.0); %Neutrophils 58.5 % (42.0-75.0); Mean Corpuscular HGB CONC 32.5 g/dL (32.0-36.0); Mean Corpuscular Hemoglobin 29.3 pg (27.0-31.0); Mean Corpuscular Volume 90.1 fL (78.0-98.0); Platelet Count 79 thou/uL (130-400); RBC Distribution Width 15.4 % (11.5-14.5); Red Blood Cell (RBC) Count 2.74 mill/uL (4.20-5.40); White Blood Cell (WBC) Count 5.7 thou/uL (4.8-10.8)
[2019-04-23 06:36] LABS: Albumin 3.1 g/dL (3.5-5.0); Anion Gap 16 mmol/L (10-20); BUN (Urea Nitrogen) 38 mg/dL (7.0-18.7); BUN/Creatinine Ratio 5.81; Calc. Creatinine Clearance 16 mL/min (70-130); Calcium 8.5 mg/dL (7.8-10.44); Carbon Dioxide 23 mmol/L (22-29); Chloride 100 mmol/L (98-107); Estimated GFR-MDRD 7; Glucose 75 mg/dL (70-105); Phosphorus 5.8 mg/dL (2.3-4.7); Sodium 135 mmol/L (136-145)
[2019-04-23] MEDS: Piperacillin/Tazobactam 2.25 GM in Sodium Chloride 0.9% 100 ML IVPB SCH (10:22)
--- NOTE | 2019-04-23 16:21 | PDOC.GSPN ---
Surgery Progress Note: Subj - Subjective Narrative: Patient is doing well. No fevers since removal of her catheter and cultures are still negative. Dr. Major has stated that she can have replacement of her tunneled hemodialysis catheter tomorrow and she is scheduled for that. Time permitting we will transpose her left basilic fistula as well. Surgery Progress Note: Obj - Vital signs Vital signs: Vital Signs - Most Recent Temp Pulse Resp BP Pulse Ox 98.6 F 84 18 122/72 94 L 04/23/19 07:24 04/23/19 07:24 04/23/19 07:24 04/23/19 07:24 04/23/19 07:24 Surgery Progress Note: Results - Labs Result Diagrams: 04/23/19 06:00 04/23/19 06:00 Lab results: Laboratory Results - last 24 hr 04/23/19 04/23/19 06:00 06:00 WBC 5.7 RBC 2.74 L Hgb 8.0 L Hct 24.7 L MCV 90.1 MCH 29.3 MCHC 32.5 RDW 15.4 H Plt Count 79 L MPV 9.0 Neutrophils % 58.5 Neutrophils % (Manual) Not Reportable Lymphocytes % 16.1 L Monocytes % 11.5 H Eosinophils % 12.6 H Basophils % 1.3 H Neutrophils # 3.3 Lymphocytes # 0.9 L Monocytes # 0.7 H Eosinophils # 0.7 Basophils # 0.1 Sodium 135 L Potassium 4.0 Chloride 100 Carbon Dioxide 23 Anion Gap 16 BUN 38 H Creatinine 6.54 H Estimated GFR (MDRD) 7 BUN/Creatinine Ratio 5.81 Glucose 75 Calcium 8.5 Phosphorus 5.8 H Albumin 3.1 L
--- NOTE | 2019-04-23 16:29 | PRG ---
DATE OF SERVICE: 04/23/2019 SUBJECTIVE: Ms. Hodge is feeling well. She is more oriented. Denies any headaches. No shortness of breath. No abdominal pain. No diarrhea. She had a temperature of 103 yesterday at 4 p.m. Catheter has been removed, and she is waiting for a new one to be placed. LABORATORY DATA: Her white cell count is at 5.7, hemoglobin 8, platelets 79,000. Blood cultures no growth, and the Karius test was negative. ASSESSMENT AND PLAN: End-stage renal disease, hemodialysis through a tunneled catheter. The kidney problem is presumably secondary to complications of her last ; skin lesions; recurrent fever; chronic hepatitis C, untreated; splenic hypodense lesions. Bacterial or fungal infection is less likely in view of the negative Karius test. Malignancy including lymphoma or metastatic cancer is not ruled out in the splenic area. Hepatitis C related autoimmune manifestations to be considered in view of the skin lesions as well. A new catheter can be replaced tomorrow, and we will discontinue antimicrobials and follow her temperature course, the patient may need percutaneous biopsy of one of the splenic lesions for cytology. Job ID: [id number]
--- NOTE | 2019-04-23 16:54 | PDOC.HOSPP ---
- Subjective Subjective: Feels great. Wants to go home. Needs to get her kids enrolled in school. - Objective Vital Signs & Weight: Vital Signs (12 hours) Temp Pulse Resp BP Pulse Ox 04/23/19 07:24 98.6 F 84 18 122/72 94 L Weight Admit Weight 230 lb 12.8 oz Weight 201 lb 11.2 oz Most Recent Monitor Data Heart Rate from ECG 82 NIBP 119/77 NIBP BP-Mean 91 Respiration from ECG 24 SpO2 93 I&O: 04/22/19 04/23/19 04/24/19 06:59 06:59 06:59 Intake Total 1880 1300 Balance 1880 1300 Result Diagrams: 04/23/19 06:00 04/23/19 06:00 ROS - Medication Medications: Active Medications Generic Name Dose Route Start Last Admin Trade Name Freq PRN Reason Stop Dose Admin Acetaminophen 650 mg 04/17/19 09:56 04/21/19 15:02 Tylenol PO 650 mg Q4H PRN Administration Headache/Fever/Mild Pain (1-3) Epoetin Valente-epbx 2,000 unit 04/21/19 07:23 04/21/19 10:31 Retacrit SC 2,000 unit TuThSa CHUCHO Administration Epoetin Valente-epbx 3,000 unit 04/21/19 07:24 04/21/19 10:30 Retacrit SC 3,000 unit TuThSa CHUCHO Administration Lactulose 20 gm 04/19/19 21:00 04/23/19 10:21 Lactulose PO 20 gm BID CHUCHO Administration Sodium Chloride 10 ml 04/17/19 21:00 04/23/19 10:22 Flush - Normal Saline IVF 10 ml Q12HR CHUCHO Administration - Exam NAD Neck: supple, symmetric, no JVD, no thyromegaly, no lymphadenopathy, no carotid bruit Heart: RRR, no murmur, no gallops, no rubs, normal peripheral pulses Respiratory: CTAB, no wheezes, no rales, no ronchi, normal chest expansion, no tachypnea, normal percussion Gastrointestinal: soft, non-tender, non-distended, normal bowel sounds, no palpable masses, no hepatomegaly, no splenomegaly, no bruit Extremities: no cyanosis, no clubbing, no edema Skin: normal turgor, no lesions, no rashes Psychiatric: normal affect, normal behavior, A&O x 3 Hosp A/P (1) Sepsis Code(s): A41.9 - SEPSIS, UNSPECIFIED ORGANISM Status: Acute (2) Hepatic encephalopathy Code(s): K72.90 - HEPATIC FAILURE, UNSPECIFIED WITHOUT COMA Status: Acute (3) Toxic metabolic encephalopathy Code(s): G92 - TOXIC ENCEPHALOPATHY Status: Acute (4) ESRD (end stage renal disease) on dialysis Code(s): N18.6 - END STAGE RENAL DISEASE; Z99.2 - DEPENDENCE ON RENAL DIALYSIS Status: Chronic (5) HTN (hypertension) Code(s): I10 - ESSENTIAL (PRIMARY) HYPERTENSION Status: Chronic (6) Hepatitis C Code(s): B19.20 - UNSPECIFIED VIRAL HEPATITIS C WITHOUT HEPATIC COMA Status: Chronic - Plan Patient appears stable with no fever x 48 hours. No specific infection identified. Negative Karius test, but high prolactin. Tunneled catheter removed and cultured. All cultures negative. Off abx now. Plan for replacement tunneled catheter tomorrow with resumption of HD. She is willing to wait until tomorrow to get that done. Will have transposition of the HD shunt tomorrow as well. Will plan on discharging with Rx for lactulose at that time.
[2019-04-23 19:23] LABS: Hep C PCR-Quant HCV Not Detected IU/mL (.)
--- NOTE | 2019-04-23 19:32 | PRG ---
DATE OF SERVICE: 04/23/2019 SERVICE: Nephrology. SUBJECTIVE: A 43-year-old female being followed up for end-stage renal disease management. The patient had a tunneled dialysis catheter removed due to intermittent fever, especially after dialysis. No new problem. Feeling a lot better. OBJECTIVE: VITAL SIGNS: Temperature 98.6, respiratory rate 18, pulse 84, SpO2 of 94 on room air, and blood pressure is 122/72. GENERAL: Obese female, in no distress. Afebrile. Anicteric. Acyanotic. HEENT: Normocephalic and atraumatic. Oral mucosa is moist. CARDIOVASCULAR: Regular rhythm and rate with normal heart sounds one and two. Systolic murmur noted. RESPIRATORY: Fair air entry bilaterally with no obvious crackle or rhonchi or use of accessory muscles. GI: Obese, soft, nontender, and nondistended with normal bowel sounds. EXTREMITIES: Grossly normal, looking atraumatic with no edema or erythema. 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 Cranial nerves 2 through 12 are grossly intact. DIAGNOSTIC DATA: CBC today showed WBC count of 5.7, hemoglobin of 8.0, and platelet count of 79. Renal function panel today showed sodium 135, potassium 4.0, chloride 100, CO2 of 23, BUN 38, creatinine 6.54, glucose 75, calcium 8.5, phosphorus 5.8, and albumin 3.1. ASSESSMENT: 1. Presumed dialysis catheter associated infection: Tunneled catheter was removed. 2. Intermittent febrile illness: The patient has been afebrile since last dialysis on April 21, 2019. 3. End-stage renal disease, on hemodialysis Tuesday, , and Tuesday. 4. Anemia of chronic kidney disease. 5. Chronic thrombocytopenia: Levels are trending up. 6. Secondary hyperparathyroidism. 7. Hypertension: Control is acceptable. 8. Hepatitis C. 9. Liver cirrhosis with portal hypertension. 10. Splenic hypodensities: Etiology is unclear. Neoplasm is a concern. PLAN: 1. The patient will get hemodialysis tomorrow after placement of new tunneled dialysis catheter. Appreciate Infectious Disease input. Discontinuation of IV antibiotics is planned and observation of the patient's off antibiotics to ensure. 2. We will continue antihypertensives as well as Sensipar and other medications. Possible discharge tomorrow after dialysis is planned. Job ID: [id number]
[2019-04-24 08:46] LABS: Vancomycin, Random 16.9 ug/mL (See Comment)
[2019-04-24] MEDS: EPOETIN ALFA-EPBX (ESRD) 3,000 UNIT/ML VIAL SC SCH ×2 (09:07→09:08)
[2019-04-24] MEDS: EPOETIN ALFA-EPBX (ESRD) 2,000 UNIT/ML VIAL SC SCH (09:08)
[2019-04-24] MEDS ORDERED: Lidocaine 1% PF 5 ML VIAL ONE (11:19)
[2019-04-24] MEDS ORDERED: PROPOFOL 200 MG/20 ML VIAL ONE (11:19)
--- NOTE | 2019-04-24 17:30 | PRG ---
DATE OF SERVICE: 04/24/2019 SERVICE: Nephrology. SUBJECTIVE: A 43-year-old female with known history of end-stage renal disease, admitted due to acute encephalopathy. The patient later developed fever during dialysis, one was started on broad-spectrum antibiotics. She had another episode of fever systemic inflammatory response after dialysis, and tunneled dialysis catheter was removed. The patient reports feeling better, and denied fever, nausea, vomiting, or chest pain. OBJECTIVE: VITAL SIGNS: Temperature 98.4, pulse 79, respiratory rate 20, SpO2 of 93% on room air, blood pressure is 110/68. GENERAL: Obese female, in no distress. Afebrile. Anicteric. Acyanotic. HEENT: Normocephalic and atraumatic. Oral mucosa is moist. CARDIOVASCULAR: Regular rhythm and rate with normal heart sounds 1 and 2. Systolic murmur noted. RESPIRATORY: Fair air entry bilaterally with no obvious crackle or rhonchi or use of accessory muscles. GI: Obese, soft, nontender, nondistended with normal bowel sounds. EXTREMITIES: Grossly normal looking atraumatic with no edema or erythema. Patchy hyperpigmented spots noted both in lower and upper extremities as well as the trunk. 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 Cranial nerves 2 through 12 are grossly intact. DIAGNOSTIC DATA: There is no CBC or BMP today. ASSESSMENT: 1. Presumed dialysis catheter associated infection. Tunneled catheter was removed on April 21. The patient has been afebrile since then. Re-insertion of tunneled dialysis catheter is planned today. 2. Intermittent febrile illness: The patient has remained afebrile since removal of the dialysis catheter. She is also currently off antibiotics. 3. End-stage renal disease, on hemodialysis Tuesday, , Tuesday. We will dialyze the patient today after dialysis catheter placement. 4. Anemia of chronic kidney disease: We will continue erythrocytes stimulating agent therapy. 5. Chronic thrombocytopenia. 6. Secondary hyperparathyroidism: Continue Sensipar. 7. Hypertension: Control is acceptable. 8. Hepatitis C: Repeat hepatitis C antibody is negative and RNA PCR also is negative. The patient reportedly received treatment recently, may have been hepatitis C infection. Job ID: [id number]
[2019-04-24] MEDS ORDERED: Lidocaine 2% PF 5 ML VIAL ONE (18:36)
[2019-04-24] MEDS ORDERED: Bupivacaine/Epinephrine 0.25% 30 ML VIAL ONE (18:36)
[2019-04-24] MEDS ORDERED: Heparin 10,000 UNITS/1 ML VIAL ONE (18:36)
[2019-04-24] MEDS ORDERED: Sodium Chloride 0.9% 0 ML ONE (18:36)
[2019-04-24] MEDS ORDERED: Fentanyl 100 MCG/2 ML VIAL ONE (18:53)
[2019-04-24] MEDS ORDERED: Propofol 500 MG/50 ML VIAL ONE (18:53)
[2019-04-24] MEDS ORDERED: Sodium Chloride 0.9% 20 ML ONE (19:40)
[2019-04-24] MEDS ORDERED: Promethazine HCl 25 MG/ML VIAL SLOW IVP PRN (20:21)
[2019-04-24] MEDS ORDERED: Promethazine HCl 25 MG/ML VIAL IM PRN (20:21)
[2019-04-24] MEDS ORDERED: Ondansetron HCl/PF 4 MG/2 ML Vial IVP PRN (20:21)
--- NOTE | 2019-04-24 20:34 | RAD ---
XR Chest 1 View History: Dialysis catheter placement Comparison: Chest radiograph April 17, 2019 Findings: New left approach dialysis catheter is in place with tip at the level of the inferior SVC. Moderate volume overload. Impression: Uncomplicated placement dialysis catheter. No pneumothorax.
--- NOTE | 2019-04-24 22:19 | RAD ---
XR Fluoro Inherent To Surg Pr History: Hemodialysis catheter placement Comparison: Chest radiograph same day Findings: Single image was obtained from the operating room. Total fluoroscopy time 65.9 seconds. Impression: Fluoroscopy for surgical purposes.
--- NOTE | 2019-04-24 22:42 | PDOC.HOSPP ---
- Subjective Subjective: Feels well. She reports anxiety regarding the surgery, but otherwise, no complaints. - Objective Vital Signs & Weight: Weight Admit Weight 230 lb 12.8 oz Weight 201 lb 11.2 oz Most Recent Monitor Data Heart Rate from ECG 82 NIBP 119/77 NIBP BP-Mean 91 Respiration from ECG 24 SpO2 93 I&O: 04/23/19 04/24/19 04/25/19 06:59 06:59 06:59 Intake Total 1300 Balance 1300 Result Diagrams: 04/23/19 06:00 04/23/19 06:00 Hospitalist ROS - Medication Medications: Active Medications Generic Name Dose Route Start Last Admin Trade Name Freq PRN Reason Stop Dose Admin Acetaminophen 650 mg 04/17/19 09:56 04/21/19 15:02 Tylenol PO 650 mg Q4H PRN Administration Headache/Fever/Mild Pain (1-3) Epoetin Valente-epbx 2,000 unit 04/21/19 07:23 04/24/19 09:08 Retacrit SC [facility] Administration Epoetin Valente-epbx 3,000 unit 04/21/19 07:24 04/24/19 09:08 Retacrit SC 3,000 unit [facility] CHUCHO Administration Lactulose 20 gm 04/19/19 21:00 04/24/19 21:09 Lactulose PO 20 gm BID CHUCHO Administration Sodium Chloride 10 ml 04/17/19 21:00 04/24/19 21:09 Flush - Normal Saline IVF 10 ml Q12HR CHUCHO Administration - Exam General Appearance: NAD, awake alert Heart: RRR, no gallops, no rubs, II/IV Respiratory: CTAB, no wheezes, no rales, no ronchi, normal chest expansion, no tachypnea, normal percussion Gastrointestinal: soft, non-tender, non-distended, normal bowel sounds, no palpable masses, no hepatomegaly, no splenomegaly, no bruit Extremities: no cyanosis, no clubbing, no edema Skin: normal turgor, no lesions, no rashes Musculoskeletal: normal tone Psychiatric: normal affect, normal behavior, A&O x 3 Hosp A/P (1) Sepsis Code(s): A41.9 - SEPSIS, UNSPECIFIED ORGANISM Status: Acute (2) Hepatic encephalopathy Code(s): K72.90 - HEPATIC FAILURE, UNSPECIFIED WITHOUT COMA Status: Acute (3) Toxic metabolic encephalopathy Code(s): G92 - TOXIC ENCEPHALOPATHY Status: Acute (4) ESRD (end stage renal disease) on dialysis Code(s): N18.6 - END STAGE RENAL DISEASE; Z99.2 - DEPENDENCE ON RENAL DIALYSIS Status: Chronic (5) HTN (hypertension) Code(s): I10 - ESSENTIAL (PRIMARY) HYPERTENSION Status: Chronic (6) Hepatitis C Code(s): B19.20 - UNSPECIFIED VIRAL HEPATITIS C WITHOUT HEPATIC COMA Status: Chronic Plan: Negative PCR - presumed resolved. - Plan Patient appears stable with no fever x 48 hours. No specific infection identified. Negative Karius test, but high prolactin. Tunneled catheter removed and cultured. All cultures negative. Off abx now. No recurrence of fever. Replace HD tunneled catheter today HD after catheter placed. Will be ready for DC home after HD. May be too late in the night to go today.
[2019-04-25] MEDS: Acetaminophen 325 MG TAB PO PRN ×3 (01:02→11:07)
[2019-04-25] MEDS ORDERED: Morphine 4 MG/ML VIAL SLOW IVP SCH (01:30)
--- NOTE | 2019-04-25 01:34 | PDOC.EVN ---
Event Note - Event Note Event Note: Called to floor for right sided neck pain and swelling. 10/10 pain. Patient has what appears to be a large hematoma on the right side of her neck, not present when patient went to sleep. I can discern no bruit. Discussed with Dr. Petty, plan for stat CT of the neck with contrast.
[2019-04-25 07:37] LABS: #Eosinphils 0.4 thou/uL (0.0-0.7); #Lymphocytes 0.9 thou/uL (1.20-3.40); #Monocytes 0.4 thou/uL (0.11-0.59); #Neutrophils 2.6 thou/uL (1.40-6.50); %Basophils 0.9 % (0.0-1.0); %Eosinophils 9.7 % (0.0-10.0); %Lymphocytes 19.7 % (21.0-51.0); %Neutrophils 59.7 % (42.0-75.0); Hemoglobin 7.5 g/dL (12.0-16.0); Mean Corpuscular HGB CONC 33.4 g/dL (32.0-36.0); Mean Corpuscular Hemoglobin 30.1 pg (27.0-31.0); Mean Corpuscular Volume 89.9 fL (78.0-98.0); Mean Platelet Volume 7.8 fL (7.4-10.4); Platelet Count 82 thou/uL (130-400); RBC Distribution Width 16.1 % (11.5-14.5); Red Blood Cell (RBC) Count 2.51 mill/uL (4.20-5.40); White Blood Cell (WBC) Count 4.4 thou/uL (4.8-10.8)
--- NOTE | 2019-04-25 07:47 | CT ---
PRELIMINARY REPORT/[facility]/EMERGENCY AFTER HOURS PROCEDURE: EXAM: CT Neck With Contrast EXAM DATE/TIME: 04/25/2019 1:44 AM CLINICAL HISTORY: 43 years old, female; Neck pain; Patient HX: Abrupt swelling to right side of neck, suspected hematom a TECHNIQUE: Imaging protocol: Computed tomography images of the neck with intravenous contrast. COMPARISON: No relevant prior studies available. FINDINGS: Nasopharynx: Normal. Oropharynx: Normal. No significant tonsillar enlargement. Hypopharynx: Normal. Larynx: Normal. Normal epiglottis. Retropharyngeal space: Normal. Submandibular/Parotid glands: Normal. Glands are normal in size. Thyroid: Normal. No enlarged or calcified nodules. Lymph nodes: Normal. No lymphadenopathy. Trachea: Visualized trachea is unremarkable. Lungs: Normal as visualized. Bones/joints: Normal. No acute fracture. Soft tissues: There is subcutaneous fat stranding and swelling of the right lateral aspect of the nec k extending into the ventral upper chest and somewhat asymmetric thickening of the adjacent right odin rnocleidomastoid muscle with fat stranding also surrounding this muscle and extending up to the right submandibular space. Findings are suspicious for possible cellulitis and right sternocleidomastoid m yositis but mild bruising could have a similar appearance. There is a small air locule anterior to th e right sternocleidomastoid muscle in this region, cannot exclude a penetrating injury. IMPRESSION: There is subcutaneous fat stranding and swelling of the right lateral aspect of the neck extending in to the ventral upper chest and somewhat asymmetric thickening of the adjacent right sternocleidomastoid muscle with fat stranding also surrounding this muscle and extending up to the right submandibular sp felipa. Findings are suspicious for possible cellulitis and right sternocleidomastoid myositis but mild bruising could have a similar appearance. There is a small air locule anterior to the right sternocle idomastoid muscle in this region, cannot exclude a penetrating injury. Thank you for allowing us to participate in the care of your patient. Dictated and Authenticated by: Terry Vieyra MD 04/25/2019 2:38 AM Central Time ([place] & [place]) FINAL REPORT POSTCONTRAST SOFT TISSUE NECK CT: HISTORY: Abrupt swelling. Evaluate for possible hematoma. COMPARISON: None. FINDINGS: Visualized brain parenchyma and orbits are unremarkable. Aerodigestive tract is patent. No mucosal abnormality. Limited evaluation of the oral cavity due to dental amalgam artifact. Midline fatty raphae of the tongue is preserved. Symmetric attenuation of the salivary glands. Unremarkable thyroid gland. There is stranding of the right neck subcutaneous fat. Stranding is noted along the anterior lateral right aspect of the neck involving the platysmus. There is asymmetric edema of the right sternoclei domastoid muscles. There is a small focus of nonspecific air. Cervical spine vertebral body heights are maintained. There is no fracture. No high-grade central c anal stenosis. No high-grade foraminal narrowing. Patchy ground-glass opacities and linear opacitie s of the lung parenchyma. IMPRESSION: 1. This report is in agreement with the preliminary report by [facility]. There is stranding of the right side of the neck as described in the preliminary report by [facility]. Findings are presumed to be due to c ellulitis and possible right sternocleidomastoid myositis. A component of bruising/hematoma cannot b e entirely excluded. Correlate with clinical examination. 2. Presumed chronic changes of the visualized lung parenchyma. Correlate clinically for edema or in filtrate. POS: OFF
[2019-04-25 08:00] LABS: Albumin 3.1 g/dL (3.5-5.0); Anion Gap 13 mmol/L (10-20); BUN (Urea Nitrogen) 36 mg/dL (7.0-18.7); BUN/Creatinine Ratio 6.01; Calc. Creatinine Clearance 17 mL/min (70-130); Calcium 8.1 mg/dL (7.8-10.44); Carbon Dioxide 27 mmol/L (22-29); Chloride 102 mmol/L (98-107); Estimated GFR-MDRD 8; Glucose 80 mg/dL (70-105); Phosphorus 5.4 mg/dL (2.3-4.7); Potassium 4.1 mmol/L (3.5-5.1); Sodium 138 mmol/L (136-145)
[2019-04-25] MEDS ORDERED: ISOVUE-370 76%-LOCM 1 ML ONE (09:33)
[2019-04-25] MEDS ORDERED: Ketorolac Tromethamine 30 MG/ML VIAL IVP SCH (12:00)
--- NOTE | 2019-04-25 12:47 | PRG ---
DATE OF SERVICE: 04/25/2019 SERVICE: Nephrology. SUBJECTIVE: A 43-year-old with end-stage renal disease, admitted due to acute encephalopathy. The patient developed intermittent fevers following dialysis, necessitating removal of the tunneled dialysis catheter. The patient had resection of tunneled dialysis catheter last night, which was followed this morning with swelling of right side of neck and upper chest, associated with pain and tenderness. The patient was seen in dialysis today and complaints of right-sided neck pain. OBJECTIVE: VITAL SIGNS: Temperature 97.9, pulse 77, respiratory rate 20, SpO2 of 98% on room air, blood pressure is 96/59. GENERAL: Obese female, in mild painful distress. Afebrile. Anicteric. Acyanotic. HEENT: Normocephalic, atraumatic. Oral mucosa is moist. NECK: Right-sided neck swelling with some bruises like ecchymosis noted. Range of motion is decreased due to pain. CARDIOVASCULAR: Regular rhythm and rate with normal heart sounds, one and two. Systolic murmur noted. CHEST/RESPIRATORY: Fair air entry bilaterally with no obvious respiratory distress or crackles or rhonchi. Left upper chest tunneled dialysis catheter noted. Two puncture wounds on the right upper chest noted with some mild edema and bruising of right upper chest. GI: Obese, soft, nontender, nondistended with normal bowel sounds. EXTREMITIES: Grossly normal looking, atraumatic with no edema. Scattered patchy hyperpigmentation of the extremities and trunk noted. 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 Cranial nerves 2 through 12 are grossly intact. DIAGNOSTIC DATA: CBC showed WBC count of 4.4, hemoglobin of 7.5, platelet of 82. Renal function panel showed sodium 138, potassium 4.1, chloride 102, CO2 of 27, BUN 36, creatinine 5.99, glucose 80, calcium 8.1, phosphorus 5.4, albumin 3.1. Soft tissue neck CT scan with contrast showed subcutaneous fat stranding and swelling of right lateral aspect of the neck extending into the ventral upper chest with somewhat asymmetric thickening of the adjacent right sternocleidomastoid muscle with fat stranding also surrounding this muscle and extending up to the right submandibular space. Findings are suspicious for possible cellulitis and right sternocleidomastoid myositis, but mild bruising could have a similar appearance. There is a small air locule anterior to right sternocleidomastoid muscle in this region, hence cannot exclude a penetrating injury. ASSESSMENT: 1. End-stage renal disease, on hemodialysis. The patient is status post hemodialysis today with newly placed tunneled dialysis catheter. There was no febrile illness during this dialysis. 2. Right-sided neck swelling and pain and bruise: This most likely is due to failed attempt at TDC placement on this site. 3. Hypertension: Blood pressure is soft at this time. 4. Febrile illness. 5. Presumed dialysis catheter associated infection: The patient's tunneled dialysis catheter has been removed. 6. Acute encephalopathy: Multifactorial from sepsis and infection, resolved. 7. Liver cirrhosis. PLAN: The patient can be discharged from Nephrology point of view to continue outpatient hemodialysis treatments. Re-evaluation by General Surgery given the neck swelling, stroke hematoma is recommended. Continue to monitor hemoglobin and hematocrit. We will continue erythrocyte stimulating agent therapy on discharge. Job ID: [id number]
[2019-04-25 16:34] VITALS: BP 106/67; TEMP 98
--- NOTE | 2019-04-25 21:28 | DIS ---
DATE OF ADMISSION: 04/16/2019 DATE OF DISCHARGE: 04/25/2019 DISCHARGE DIAGNOSES: 1. Acute toxic metabolic encephalopathy, multifactorial, improved. 2. End-stage renal disease with hemodialysis. 3. Sepsis, organism not identified. 4. Status post hemodialysis catheter removal with subsequent replacement. 5. Hepatitis C, stable. CONSULTATIONS: 1. Dr. Major with Infectious Disease Service. 2. Dr. Cast with Nephrology Service. 3. Dr. Lawrence with General Surgery Service. 4. Dr. Avalos with GI Service. PERTINENT LABORATORY AND X-RAY FINDINGS: Creatinine ranged between 5.99 to 10.87. Lactic acid level 1.3, phosphorus ranged between 5.4 to 5.8. Serum ammonia level ranged between 22 to 74. Tumor AFP 2.2. Procalcitonin 56.13. TSH 3.26. CBC showed a hemoglobin ranging between 7.5 to 8.8. Blood cultures x2 dated 04/17/2019, showed no growth at 5 days. Right subclavian dialysis catheter culture dated 04/21/2019, showed no growth at 48 hours. Blood culture x1 dated 04/21/2019, showed no growth at 48 hours. Catheter tip culture dated 04/21/2019, showed no growth at [address] of the brain without contrast dated 04/16/2019, showed no acute intracranial process. Carotid Doppler study dated 04/16/2019, showed no hemodynamically significant stenosis. MRI of the brain dated 04/17/2019, showed no acute intracranial process. CT of the abdomen and pelvis dated 04/19/2019, showed cirrhosis of the liver with portal hypertension. Splenic hypodensities, nonspecific. Mild anasarca. 2D transthoracic echocardiogram dated 04/21/2019, showed ejection fraction 55% to 60%. Moderate to severe left atrial enlargement. Moderate mitral and tricuspid regurgitation. CT of the soft tissues of the neck dated 04/25/2019, showed stranding of the right side of the neck concerning for hematoma versus myositis of the right sternocleidomastoid muscle. HOSPITAL COURSE: The patient was initially admitted after presenting with altered mental status in the context of end-stage renal disease. The patient underwent extensive evaluation due to altered mentation including neuroimaging, which showed no acute intracranial process. The patient also underwent carotid Doppler study showing no focal stenosis or hemodynamically significant stenosis. The patient continued on maintenance hemodialysis throughout her hospital course, tolerating without difficulty. The patient was noted with elevated temperature with concern for potential infectious process. The patient underwent subsequent removal of tunneled right-sided hemodialysis catheter due to concern for infected catheter. Catheter tip culture as well as blood cultures all remained negative throughout the hospital course. The patient did receive broad-spectrum IV antibiotic therapy, however, this was discontinued after consultation was obtained with Infectious Disease Service and all cultures have remained negative through the remainder of the hospital course. The patient underwent evaluation by the General Surgery Service with subsequent placement of new tunneled hemodialysis catheter, tolerating without difficulty. The patient did develop hematoma of the right side of the neck after right-sided access was unsuccessful due to adhesions and anatomical variations. The patient received IV Toradol for pain control due to the hematoma of the right neck, however, no specific intervention was recommended by the General Surgery Service. Overall, the patient did remain clinically stable during the hospital course, tolerating regular oral intake, voiding appropriately with stable vital signs. I have examined the patient at the time of discharge and discussed followup instructions. The patient overall clinically stable and ready for discharge on 04/25/2019. DISCHARGE MEDICATIONS: 1. Calcium carbonate 1000 mg p.o. b.i.d. 2. Hydrocortisone 1% cream applied to affected area b.i.d. 3. Nifedipine XL 60 mg p.o. daily. 4. Bicitra 30 mL p.o. p.c. at bedtime. FOLLOWUP: The patient to follow up with Dr. Cast with Nephrology Service and to call his office for appointment time and date. CONDITION ON DISCHARGE: Fair. ACTIVITY: Ad-altagracia. DIET: Renal. CODE STATUS: Full. DISPOSITION: Home on 04/25/2019. TIME SPENT: Total time preparing and coordinating discharge is 33 minutes. Job ID: [id number]
[2019-04-26 16:09] LABS: Smooth Muscle Total ABS 23 Units (0-19)
--- NOTE | 2019-04-27 16:52 | PDOC.OP ---
Operative Note - Operative Note Operative Note: DATE OF PROCEDURE: 04/24/2019 PROCEDURE: Placement of left internal jugular tunneled hemodialysis catheter. SURGEON: Erickson Lawrence M.D. PREOPERATIVE DIAGNOSIS: End-stage renal failure. POSTOPERATIVE DIAGNOSIS: End-stage renal failure. HISTORY: Patient with end-stage renal failure. She presented with sepsis and was felt to have a colonized dialysis catheter. This was removed at the bedside. She has a basilic vein fistula on the left arm but this has not yet been transposed and is not usable. 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 PROCEDURE: After informed consent was obtained and appropriate preoperative antibiotics were administered, the patient was taken to the Operating Room, placed in the supine position and monitored anesthesia care was administered. The neck and chest were prepped and draped in a standard sterile fashion and the patient placed in Trendelenburg position. A sterile ultrasound probe was used to identify the patent compressible right IJ vein which was accessed under direct ultrasound guidance. A wire was threaded through the needle and confirmed by ultrasound to be within the patent compressible vessel with the tip in the vena cava by fluoroscopy. Local anesthesia was infused to the skin and subcutaneous tissues of the right neck and chest. An infraclavicular incision was made and a catheter tunneled from the infraclavicular to the right IJ access site. The right IJ was sequentially dilated over the wire but the dilator and sheath was unable to be advanced. There was resistance and on fluoroscopy the dilator was not passing the level just below the clavicle. It was felt the patient likely had a stenosis of the dilator and sheath were removed and pressure was held for 15 minutes. Attention was turned to the left internal jugular vein. This was patent and compressible although rather small. This was accessed under direct ultrasound guidance and a wire threaded into the superior vena cava and was confirmed to be in good position on fluoroscopy and in the compressible vein in the neck by ultrasound. Skin and subcutaneous tissues of the left neck and chest were anesthetized and incisions made. The left internal jugular tunneled catheter was brought up from the infraclavicular incision to the left IJ access site. The tract was sequentially dilated and a dilator and sheath placed over the wire without meeting resistance. The dilator and wire were removed leaving the sheath in place. The catheter was tunneled through the sheath which was then split and removed leaving the catheter in place. This was confirmed by fluoroscopy to be in good position in the superior vena cava with no kinking of the course of the catheter. Both ports easily aspirated dark venous nonpulsatile blood and easily flushed without resistance. Heparin was instilled to the quantity specified on the hub, and the hub was secured to the skin with 3-0 nylon sutures. The skin incision at the neck was closed in two layers with 4-0 Monocryl suture and Dermabond dressings were placed. The skin at the exit site was snugged up around the catheter with 4-0 Monocryl suture and Dermabond was placed there as well. Once the Dermabond was dry, a Biopatch and Tegaderm dressing was placed at the exit site. The right infraclavicular and neck incisions were then also closed in the same manner and dressed with Dermabond. The patient was taken to Recovery in good condition. Estimated blood loss was minimal. There were no complications. There were no specimens.
--- NOTE | 2019-04-27 19:47 | PQF ---
VALDO HANSEN CHARLES DO [id number] CLINICAL DOCUMENTATION CLARIFICATION FORM: POST DISCHARGE Addendum to original discharge summary date: ____ Late entry note date: __ DATE: 04/27/19 ATTN: Alphonso Matute Please exercise your independent, professional judgment in responding to the clarification form. Clinical indicators are provided on the bottom of this form for your review Can you please further specify if Sepsis is ruled in or ruled out? Sepsis [ ] Ruled in diagnosis [ ] Continue to treat [ ] Resolved [ x ] Ruled out diagnosis [ ] Cannot rule out diagnosis [ ] Other diagnosis [ ] Unable to determine In addition, please specify: [ ] Sepsis is due to infected tunneled hemodialysis catheter [ ] Sepsis is not due to infected tunneled hemodialysis catheter [ ] Sepsis is due (please specify) [ ] Sepsis of unknown etiology [ ] Unable to determine In addition, please specify: POA Yes [ ] No[ x ] For continuity of documentation, please document condition throughout progress notes and discharge summary. Thank You. CLINICAL INDICATORS Event Note pg1 04/17 Dr. Logan- Temp of 103, and her oxygen temperature has dropped" Consultation pg2 04/17 Dr. Gale- Acidosis H&P pg 2 04/17 Dr. Logan- Laboratory Data: WBC 4.1, Hgb 8.8, Hct 26.5, Glucose 89 H&P pg 2 04/17 Dr. Logan- Vital signs: BP 144/79, HR 83, RR 18, Temp 98.7 PN pg1 04/24 Dr. Cast- patient later developed fever during dialysis, one was started on broad-spectrum antibiotics PN pg1 04/24 Dr. Cast- presumed dialysis catheter associated infection PN pg1 04/25 Dr. Cast- Acute encephalopathy: multifactorial from sepsis and infection, resolved DS pg2 Dr. Nugent-Catheter tip culture as well as blood cultures all remained negative throughout the hospital course. The patient did receive broad-spectrum IV antibiotic therapy, however, this was discontinued after consultation was obtained with Infectious Disease and all cultures have remained negative RISK FACTORS ESRD on hemodialysis-H and P pg.1 Altered mental status-H and P pg.1 Toxic metabolic encephalopathy-Hospitalist PN 04/18 Dr. Mark pg.3 Hepatitis C- H and P pg.1 TREATMENTS Removal of tunneled catheter- OP Report04/21/19 Chest X-ray- 04/17 Infectious consult- Dr. Major IV Fluids- NOV 03 Microbiology- 04/21 Vancomycin 1gm IV- NOV 03 Piperacillin (Zosyn) 3.375gm IV- 04/17 (This form is maintained as a part of the permanent medical record) 2014 [employer] All Rights Reserved Bin [email or web address] [not provided] MTDD
== END 2019-04-25 18:10 | disposition home or self-care (01) | DRG 91 ==
LOC: ERS 20:38 → OBSVTOIN 23:27 → 2SE 23:27 → CCU 04-17 15:21 → T4-B 04-20 14:02
PROVIDERS: ADMIT Hospitalist; ATTEND Hospitalist
PROC: 5A1D70Z Performance of Urinary Filtration, Intermittent, Less than 6 Hours Per Day (ICD-10-PCS; 2019-04-17)
PROC: 0JPT3XZ Removal of Tunneled Vascular Access Device from Trunk Subcutaneous Tissue and Fascia, Percutaneous Approach (ICD-10-PCS; principal; 2019-04-21)
PROC: 05PYX3Z Removal of Infusion Device from Upper Vein, External Approach (ICD-10-PCS; 2019-04-21)
PROC: 0JH63XZ Insertion of Tunneled Vascular Access Device into Chest Subcutaneous Tissue and Fascia, Percutaneous Approach (ICD-10-PCS; 2019-04-24)
PROC: 02HV33Z Insertion of Infusion Device into Superior Vena Cava, Percutaneous Approach (ICD-10-PCS; 2019-04-24)
PROC: B518YZA Fluoroscopy of Superior Vena Cava using Other Contrast, Guidance (ICD-10-PCS; 2019-04-24)
DX: G92 Toxic encephalopathy (principal); N18.6 End stage renal disease; B18.9 Chronic viral hepatitis, unspecified; D61.818 Other pancytopenia; E87.2 Acidosis; N25.81 Secondary hyperparathyroidism of renal origin; K52.1 Toxic gastroenteritis and colitis; L76.32 Postprocedural hematoma of skin and subcutaneous tissue following other procedure; I12.0 Hypertensive chronic kidney disease with stage 5 chronic kidney disease or end stage renal disease; E87.5 Hyperkalemia; D63.1 Anemia in chronic kidney disease; E66.01 Morbid (severe) obesity due to excess calories; K72.90 Hepatic failure, unspecified without coma; D73.89 Other diseases of spleen; K74.60 Unspecified cirrhosis of liver; T50.905A Adverse effect of unspecified drugs, medicaments and biological substances, initial encounter; I95.9 Hypotension, unspecified; Y84.8 Other medical procedures as the cause of abnormal reaction of the patient, or of later complication, without mention of misadventure at the time of the procedure; Z91.19 Patient's noncompliance with other medical treatment and regimen; Z68.36 Body mass index [BMI] 36.0-36.9, adult; Z98.51 Tubal ligation status; Z88.8 Allergy status to other drugs, medicaments and biological substances; Z99.2 Dependence on renal dialysis; Z79.899 Other long term (current) drug therapy
CPT/HCPCS: 36415; 36416; 70450; 70491; 70551; 71045; 74177; 76700; 80048; 80053; 80069; 80074; 80202; 82103; 82104; 82105; 82140; 82330; 82550; 82728; 82803; 82805; 83516; 83540; 83550; 83605; 83615; 84145; 84443; 84484; 85007; 85025; 85027; 85060; 85610; 85652; 85730; 86038; 86140; 86160; 86225; 87040; 87071; 87521; 87522; 90935; 93005; 93306; 93880; C1752; C1769; G0257; J1644; J1885; J2001; J2060; J2270; J2543; J2704; J3010; J3370; J3490; Q5105; Q9966

== ENCOUNTER 2019-08-02 15:21 | Emergency (ER) | payer BC, OTHER | END 2019-08-02 16:53 | disposition home or self-care (01) | LOC: ERS 15:21 | DX: B85.0 Pediculosis due to Pediculus humanus capitis (principal); I12.0 Hypertensive chronic kidney disease with stage 5 chronic kidney disease or end stage renal disease; N18.6 End stage renal disease; Z99.2 Dependence on renal dialysis | CPT/HCPCS: 99282 ==

== ENCOUNTER 2019-09-11 18:04 | Emergency (ER) | payer BC, OTHER | END 2019-09-11 19:19 | disposition home or self-care (01) | LOC: ERS 18:04 | DX: H65.92 Unspecified nonsuppurative otitis media, left ear (principal); H66.91 Otitis media, unspecified, right ear; R59.0 Localized enlarged lymph nodes; I10 Essential (primary) hypertension; Z79.899 Other long term (current) drug therapy | CPT/HCPCS: 99282 ==

== ENCOUNTER 2019-11-18 23:15 | Emergency (ER) | payer OTHER ==
[2019-11-18] MEDS ORDERED: Clindamycin/D5W 600 mg/50 ml Premix Bag ONE (23:44)
[2019-11-19] MEDS ORDERED: Acetaminophen 500 MG TAB ONE (00:21)
== END 2019-11-19 01:21 | disposition home or self-care (01) ==
LOC: ERS 23:15
DX: L03.311 Cellulitis of abdominal wall (principal); I10 Essential (primary) hypertension; Z79.899 Other long term (current) drug therapy
CPT/HCPCS: 96365; J3490

== ENCOUNTER 2019-11-30 10:30 | Emergency (ER) | payer OTHER | END 2019-11-30 11:25 | disposition home or self-care (01) | LOC: ERS 10:30 | DX: L03.311 Cellulitis of abdominal wall (principal); I10 Essential (primary) hypertension; Z79.899 Other long term (current) drug therapy | CPT/HCPCS: 99283 ==

== ENCOUNTER 2020-01-29 14:29 | Emergency (ER) | payer OTHER ==
[2020-01-30 11:02] LABS: SARS-CoV-2 MS2 Positive; SARS-CoV-2 N Gene Positive; SARS-CoV-2 S Gene Positive; SARS-CoV-2 orf1ab Positive
== END 2020-01-29 16:22 | disposition home or self-care (01) ==
LOC: ERS 14:29
DX: U07.1 COVID-19 (principal); I10 Essential (primary) hypertension; B19.20 Unspecified viral hepatitis C without hepatic coma
CPT/HCPCS: 87635; 99283; U0003

== ENCOUNTER 2020-02-19 23:51 | Emergency (ER) | payer OTHER ==
[2020-02-20] MEDS ORDERED: Ketorolac Tromethamine 30 MG/ML VIAL ONE (00:58)
== END 2020-02-20 01:00 | disposition home or self-care (01) ==
LOC: ERS 23:51
DX: S71.002A Unspecified open wound, left hip, initial encounter (principal); I12.0 Hypertensive chronic kidney disease with stage 5 chronic kidney disease or end stage renal disease; N18.6 End stage renal disease; X58.XXXA Exposure to other specified factors, initial encounter
CPT/HCPCS: 96372; 99283; J1885

== ENCOUNTER 2020-03-13 08:33 | Emergency (ER) | payer OTHER ==
[2020-03-13 09:17] LABS: #Basophils 0.1 thou/uL (0.0-0.2); #Eosinphils 0.2 thou/uL (0.0-0.7); #Lymphocytes 0.9 thou/uL (1.20-3.40); #Monocytes 0.4 thou/uL (0.11-0.59); #Neutrophils 1.8 thou/uL (1.40-6.50); %Basophils 2.7 % (0.0-1.0); %Eosinophils 6.7 % (0.0-10.0); %Lymphocytes 25.8 % (21.0-51.0); %Monocytes 10.3 % (0.0-10.0); %Neutrophils 54.5 % (42.0-75.0); Hemoglobin 7.4 g/dL (12.0-16.0); Mean Corpuscular HGB CONC 32.9 g/dL (32.0-36.0); Mean Corpuscular Hemoglobin 29.7 pg (27.0-31.0); Mean Corpuscular Volume 90.3 fL (78.0-98.0); Platelet Count 59 thou/uL (130-400); Red Blood Cell (RBC) Count 2.48 mill/uL (4.20-5.40); White Blood Cell (WBC) Count 3.4 thou/uL (4.8-10.8)
--- NOTE | 2020-03-13 09:24 | RAD ---
PORTABLE FRONTAL CHEST RADIOGRAPH: DATE: 03/13/2020. COMPARISON: 04/24/2019. HISTORY: Hypertension. FINDINGS: Cardiac silhouette is enlarged. Mild pulmonary vascular prominence. No focal consolidation or alveo lar edema. Previously noted left-sided dialysis catheter is no longer present. IMPRESSION: Enlarged cardiac silhouette. No focal consolidation or alveolar edema. POS: [facility]
[2020-03-13 09:32] LABS: ALT (SGPT) Less than 7 U/L (8-55); AST (SGOT) 17 U/L (5-34); Albumin 2.9 g/dL (3.5-5.0); Alkaline Phosphatase 160 U/L (40-110); Anion Gap 22 mmol/L (10-20); BUN (Urea Nitrogen) 84 mg/dL (7.0-18.7); Bilirubin, Total 1.1 mg/dL (0.2-1.2); Calc. Creatinine Clearance 0 mL/min (70-130); Calcium 7.9 mg/dL (7.8-10.44); Carbon Dioxide 19 mmol/L (22-29); Chloride 103 mmol/L (98-107); Estimated GFR-MDRD 3; Globulin 3.3 g/dL (2.4-3.5); Glucose 84 mg/dL (70-105); Potassium 4.8 mmol/L (3.5-5.1); Protein, Total 6.2 g/dL (6.0-8.3); Sodium 139 mmol/L (136-145)
[2020-03-13] MEDS ORDERED: traMADol HCl 50 MG TAB ONE (11:28)
--- NOTE | 2020-03-13 12:23 | HP ---
HISTORY OF PRESENT ILLNESS: Marzena Hodge is a 44-year-old female, who dialyzes on Tuesday, Tuesday, and Tuesday at [facility]. She is followed by Dr. Cast. The patient has had a left forearm dialysis graft placed in [place] that thrombosed. She went in for re-exploration in 2019, found to have a robust basilic vein that was connected, but she needs a basilic vein transposition fistula. Since 2019, I have been seeing her and Dr. Lawrence has been seeing her for hemodialysis catheter related problems including infections, colonization requiring removal and replacement. She has seen me in the office and we have scheduled multiple lines left arm basilic vein transposition fistula, but she has had reasons to cancel. She more recently had a out of town and has not dialyzed in a week. She presents to the emergency room today after going in for dialysis and prior to that visit her hemodialysis catheter fell out. She does not have dialysis access at this time. She has a known history of calciphylaxis. This morning, her labs, hemoglobin 7.4, white count 3.4, platelet count is 59,000. Sodium 139, potassium 4.9, chloride 103, carbon dioxide 19, BUN 84, creatinine 12, GFR 3. The patient has listed allergy to heparin, but I have investigated this making phone calls to her dialysis unit where she was dialyzing in 2019 in [place] and to her care providers in [place] who performed her dialysis access. She is not allergic to heparin. She has a history of thrombocytopenia. She reports that her heart rate gets slow when she gets heparin (I wonder whether this is related to protamine administration to reverse the heparin during her procedures) and she received heparin during her interventional procedures in [place] and during her surgery in [place]. I have personally talked to her dialysis access surgeon in [place] previously. Dr. Cast is her engraved roller inspector. Since we cannot do the surgery until tomorrow and she is stable with acceptable electrolytes, though not having dialyzed in 6 or 7 days. Plan is for discharge home and return tomorrow for outpatient placement hemodialysis catheter and left arm basilic vein transposition fistula. I have then arranged for her [facility] outpatient to have dialysis on Tuesday morning 03/15/2020 at 0900 hours. ALLERGIES: LISTED HEPARIN, BUT NOT AN ALLERGY DISCUSSED ABOVE. SOCIAL HISTORY: Tobacco, none. Alcohol, none. MEDICATIONS: 1. Bicitra. 2. Procardia 60 mg a day. 3. Hydrocortisone cream. 4. Calcium carbonate 1000 mg p.o. b.i.d. 5. She takes Ultram for pain and states she was given OxyContin in the emergency room. I suspect hydrocodone. She takes these for pain related to calciphylaxis. She has multiple lesions over her abdominal pannus and lower extremities and hip. REVIEW OF SYSTEMS: Otherwise, noncontributory. PAST SURGICAL HISTORY: Left arm dialysis graft, left arm basilic vein fistula formation and need a transposition. She has had colonoscopies in the past. PHYSICAL EXAMINATION: GENERAL: The patient is awake, alert, communicative. She is not dyspneic. She is resting comfortably. NEUROLOGIC: Intact without deficits. LUNGS: Clear to auscultation. No rhonchi. CARDIAC: Regular rate and rhythm. ABDOMEN: Soft. Dependent pannus. Nontender. Multiple healed wounds in lower abdomen. She has a scar in right buttocks laterally with a small open wound. EXTREMITIES: Small multiple scars related to calciphylaxis wounds, left arm fistula, good thrill and bruit graft thrombosed left forearm. ASSESSMENT AND PLAN: 1. Thrombosed dialysis graft left forearm depend on hemodialysis catheter for more than a year. Has a basilic vein fistula with good thrill and bruit that needs to be transposed for it to be accessed. We will plan placement of hemodialysis catheter and a fistula tomorrow with regional TIVA anesthesia outpatient. Plan outpatient dialysis on Tuesday morning 03/15/2020 at 0900 hours. 2. Calciphylaxis. 3. End-stage renal disease. 4. Obesity. 5. Hypertension. 6. History of poor compliance. 7. COVID positive illness on January 28. She states that she was in the COVID unit at [facility], although did not have any pulmonary manifestations, but was hospitalized due to sore wounds related to her calciphylaxis. No further COVID testing is necessary. Job ID: [id number]
--- NOTE | 2020-03-13 13:47 | CON ---
DATE OF CONSULTATION: 03/13/2020 SERVICE: Nephrology. REASON FOR CONSULTATION: End-stage renal disease management. REQUESTING PHYSICIAN: Delta Kmuar MD CHIEF COMPLAINT: Dislodged tunneled dialysis catheter. HISTORY OF PRESENT ILLNESS: A 44-year-old female, well known to me from outpatient hemodialysis, who presented to the ER due to dislodged tunneled dialysis catheter. The patient on hemodialysis Tuesday, Tuesday, and Tuesday. Has not had dialysis in the last one week, with last treatment being on Thursday, March 05, 2020. The patient reportedly noticed that her tunneled dialysis catheter dislodged and fell off while she was having shower this morning. She denied nausea, vomiting, or excessive bleeding from the site. She also denies shortness of breath. She admitted to bilateral leg swelling. She reported increased urine output in the last 1 week since she has not had dialysis. She is still complaining of pain on both hips. PHYSICAL EXAMINATION: VITAL SIGNS: GENERAL: Obese female, in no obvious distress. Afebrile. Anicteric. Acyanotic. HEENT: Normocephalic and atraumatic. Oral mucosa is moist. NECK: Supple with no obvious JVD. CARDIOVASCULAR: Regular rhythm and rate. Normal heart sounds 1 and 2. Systolic murmur noted. RESPIRATORY: Fair air entry bilaterally with bibasilar crackles posteriorly. No rhonchi or use of accessory muscles appreciated. GI: Obese, soft, nontender, and nondistended with normal bowel sounds. MUSCULOSKELETAL: Bilateral hip wound with some tenderness noted, but no obvious erythema. Bilateral MEDIA THEORIST AND AUTHOR OF: Appropriate mental status. Cranial nerves 2 through 12 are grossly intact. DIAGNOSTIC DATA: CBC showed WBC count of 3.4, hemoglobin of 7.4, and platelet of 59. Chemistry showed sodium 139, potassium 4.8, chloride 103, CO2 of 19, BUN 84, creatinine 12.67, glucose 84, calcium 7.9, total bilirubin 1.1, AST 17, ALT less than 7, alkaline phosphatase 160, total protein 6.2, and albumin 2.9. ASSESSMENT: 1. End-stage renal disease, on hemodialysis. The patient is noncompliant with treatment. Last dialysis was at least 1 week ago. 2. Volume overload. 3. Metabolic acidosis. 4. Bilateral hip wounds nonhealing concerning for calciphylaxis. 5. Presumed calciphylaxis. 6. Dislodged tunneled dialysis access. 7. Liver cirrhosis. 8. Bilateral leg edema. PLAN: In view of the fact the patient has not had dialysis in 1 week with significant azotemia, we will recommend admitting the patient to the hospital. We will get General Surgery consult for tunneled dialysis catheter. I also discussed with General Surgery about the need to doing the transposition of the left radial AV fistula transposition that was scheduled to be done during this encounter. Of note, the patient has been very noncompliant with clinic appointments and dialysis. Further treatment to follow depending on hospital course. I later got a call from Dr. Peralta that he has arranged to do the tunneled dialysis catheter placement tomorrow on an outpatient basis. Given that the patient's hemodynamics and electrolytes are acceptable and even if the patient stays in the hospital, there is no need for emergent dialysis access placement and the patient will only get the fistula transposition or tunneled dialysis catheter placement tomorrow. I am in agreement to discharging the patient today for outpatient tunneled dialysis catheter tomorrow as well as possible transposition of the AV fistula. Job ID: [id number]
== END 2020-03-13 13:33 | disposition home or self-care (01) ==
LOC: ERS 08:33
DX: I12.0 Hypertensive chronic kidney disease with stage 5 chronic kidney disease or end stage renal disease (principal); N18.6 End stage renal disease; Z99.2 Dependence on renal dialysis; Z79.899 Other long term (current) drug therapy
CPT/HCPCS: 36415; 71045; 80053; 85025; 93005

== ENCOUNTER 2020-03-14 11:40 | Day surgery (SDC) | payer OTHER ==
[~2020-03-14 11:40] MED LIST: EPHEDRINE 25 MG/5 ML SYRINGE ONE; Glycopyrrolate 0.2 MG/ML 5 ML SYRINGE ONE; Lidocaine 1% PF 5 ML VIAL ONE; Ondansetron PF 4 MG/2 ML Vial ONE; PHENYLEPHRINE-NS 100 MCG/ML 10 ML SYRINGE ONE; PROPOFOL 200 MG/20 ML VIAL ONE; Rocuronium Bromide 10 MG/ML (10ML VIAL) ONE
[2020-03-14] MEDS ORDERED: Heparin 5,000 UNITS/ML VIAL ONE (12:32)
[2020-03-14] MEDS ORDERED: Protamine Sulfate 50 MG/5 ML VIAL ONE (12:32)
[2020-03-14] MEDS ORDERED: Heparin 10,000 UNITS/1 ML VIAL ONE (12:32)
[2020-03-14] MEDS ORDERED: Lidocaine 1% w/Epinephrine 1:100K 20 ML VIAL ONE (12:32)
[2020-03-14] MEDS ORDERED: Sodium Chloride 0.9% 10 ML ONE (12:32)
[2020-03-14] MEDS ORDERED: Bupivacaine PF 0.5% 30 ML VIAL ONE (12:32)
[2020-03-14] MEDS ORDERED: Fentanyl 100 MCG/2 ML VIAL ONE ×2 (12:38→16:53)
[2020-03-14 14:03] LABS: Anion Gap 21 mmol/L (10-20); Carbon Dioxide 20 mmol/L (22-29); Chloride 104 mmol/L (98-107); Potassium 5.2 mmol/L (3.5-5.1); Sodium 140 mmol/L (136-145)
--- NOTE | 2020-03-14 17:04 | RAD ---
Chest one view HISTORY: Dialysis catheter placement. COMPARISON: 03/13/2020. FINDINGS: Cardiac silhouette is upper limits of normal in size and magnified by projection. Pulmonary vasculature is engorged. Mediastinum is midline. No lobar consolidation or evidence of pneumothorax. Right internal jugular large caliber central venous catheter in place with tips overlying the cavoatr ial junction. Postoperative changes at the left axilla. IMPRESSION : Right internal jugular catheter is in good radiographic position. Interval postoperative changes left axilla. Pulmonary vascular congestion.
[2020-03-14] MEDS ORDERED: Heparin 10,000 UNITS/ 10 ML VIAL ONE (17:58)
--- NOTE | 2020-03-14 18:07 | OP ---
DATE OF PROCEDURE: 03/14/2020 PREOPERATIVE DIAGNOSES: 1. End-stage renal disease. 2. Calciphylaxis. 3. Thrombosed left forearm dialysis graft. 4. Basilic vein fistula in need of transposition. 5. Dislodged hemodialysis catheter, not dialyzed in a week. 6. History of COVID illness, 6 tubes tested positive, not retested. POSTOPERATIVE DIAGNOSES: 1. End-stage renal disease. 2. Calciphylaxis. 3. Thrombosed left forearm dialysis graft. 4. Basilic vein fistula in need of transposition. 5. Dislodged hemodialysis catheter, not dialyzed in a week. 6. History of COVID illness, 6 tubes tested positive, not retested. PROCEDURES PERFORMED: 1. Right internal jugular cuffed tunneled hemodialysis catheter, ultrasound and fluoroscopy used. 2. Left upper arm basilic vein transposition fistula. ANESTHESIA: General, local with 0.5% [place] 30 mL, mixed with 1% Xylocaine with epinephrine 20 mL, total volume used. NOTE: The patient had not dialyzed in a week. Her dialysis catheter "fell out" and she presented to the emergency room. Her electrolytes are fine. She is not dyspneic, not acidotic, thus she was prepared for this outpatient surgery and dialysis is arranged for her in the morning. One unit of blood transfused, preoperative hemoglobin 7.2. One unit of platelets administered, preoperative platelet count 55,000. DESCRIPTION OF PROCEDURE: The patient was taken to the operating room where under general anesthesia, neck and chest were prepared with ChloraPrep and draped in routine fashion. Local anesthetic mixture was infiltrated into the skin and subcutaneous tissue about the operative site. Using ultrasound guidance, the right internal jugular vein was cannulated with a trocar catheter, J-wire threaded, trocar catheter removed. Skin site enlarged sharply. Stab incision made over the right chest. Pre-curved [employer] cuffed tunneled hemodialysis catheter tunneled between 2 incisions, placing the fabric cuff beneath the skin exit site, catheter secured with 2 interrupted sutures of 3-0 nylon. Sterile dressings applied. Small and medium-sized dilators placed over the J-wire in the internal jugular vein and removed. Dilator and Peel-Away sheath placed over the J-wire in the superior vena cava, and dilator and J-wire removed. Catheter placed with Peel-Away sheath. Peel-Away sheath removed. Platysma was approximated with 4-0 Monocryl, skin with subdermal 4-0 Monocryl, and [place] glue applied. Final fluoroscopic images revealed good line placement. Each port aspirated blood, flushed with heparinized saline solution with 1000 units of heparin per mL, indicating volume of the port. Left upper extremity had been prepared with ChloraPrep and draped in routine fashion. Incision was made from the left axilla to the antecubital area, unroofing the basilic vein, dissected free, dividing the branches between 4-0 silk ties and 3-0 silk ties and clips. Vein was mobilized. This was very large, had a large outflow in the axillary vein. It was mobilized down to its brachial artery anastomosis (this fistula initially placed in [place]). A Rose Wick tunneler used to create a tunnel using a 12 mm head and the patient given 6000 units of heparin intravenously. After adequate circulation time, the basilic vein inflow clamped with vascular clamp. It was divided and connected to the tunneler after it had been marked to prevent torsion. It was placed in the tunnel, properly positioned, and the end-to-end vein anastomosis created with continuous suture of 6-0 Prolene, releasing arterial inflow, noting good blood flow. Good hemostasis obtained with clips, ties, Surgicel, and cautery. The patient given 50 mg of protamine intravenously. Good hemostasis obtained. Subcutaneous tissue was approximated with 3-0 Monocryl, skin with anna. Local anesthetic was infiltrated in the skin and subcutaneous tissue about the operative site. Sterile dressings applied. The patient tolerated the well. Job ID: [id number]
[2020-03-14] MEDS ORDERED: HYDROcodone/Acetaminophen 5/325 mg Tablet ONE (19:21)
== END 2020-03-14 20:25 | disposition home or self-care (01) ==
LOC: SDC 11:40
PROVIDERS: ATTEND Specialist
PROC: 05SC3ZZ Reposition Left Basilic Vein, Percutaneous Approach (ICD-10-PCS; principal; 2020-03-14)
PROC: 05WY07Z Revision of Autologous Tissue Substitute in Upper Vein, Open Approach (ICD-10-PCS; principal; 2020-03-14)
DX: T82.868A Thrombosis due to vascular prosthetic devices, implants and grafts, initial encounter (principal); N18.6 End stage renal disease; E83.59 Other disorders of calcium metabolism; Z88.8 Allergy status to other drugs, medicaments and biological substances
CPT/HCPCS: 36415; 36430; 71045; 76000; 80051; 86850; 86900; 86901; C1752; J0690; J1644; J2405; J2704; J2720; J3010; P9016; P9035; S0020

== ENCOUNTER 2020-04-01 15:56 | Emergency (ER) | payer OTHER | END 2020-04-01 16:53 | disposition left against medical advice (07) | LOC: ERS 15:56 | DX: Z53.21 Procedure and treatment not carried out due to patient leaving prior to being seen by health care provider (principal) ==

== ENCOUNTER 2020-05-01 07:39 | Emergency (ER) | payer OTHER ==
[2020-05-01] MEDS ORDERED: Morphine 4 MG/ML VIAL ONE (08:27)
[2020-05-01 08:49] LABS: ALT (SGPT) 7 U/L (8-55); AST (SGOT) 25 U/L (5-34); Albumin 3.2 g/dL (3.5-5.0); Alkaline Phosphatase 226 U/L (40-110); Anion Gap 20 mmol/L (10-20); BUN (Urea Nitrogen) 39 mg/dL (7.0-18.7); CK (CPK) 161 U/L (29-168); Calc. Creatinine Clearance 0 mL/min (70-130); Calcium 8.6 mg/dL (7.8-10.44); Carbon Dioxide 24 mmol/L (22-29); Chloride 98 mmol/L (98-107); Estimated GFR-MDRD 7; Globulin 3.6 g/dL (2.4-3.5); Glucose 97 mg/dL (70-105); Potassium 4.9 mmol/L (3.5-5.1); Protein, Total 6.8 g/dL (6.0-8.3); Sodium 137 mmol/L (136-145)
[2020-05-01 08:50] LABS: #Basophils 0.1 thou/uL (0.0-0.2); #Eosinphils 0.2 thou/uL (0.0-0.7); #Monocytes 0.5 thou/uL (0.11-0.59); #Neutrophils 2.9 thou/uL (1.40-6.50); %Basophils 1.6 % (0.0-1.0); %Eosinophils 5.1 % (0.0-10.0); %Lymphocytes 21.3 % (21.0-51.0); %Monocytes 9.7 % (0.0-10.0); %Neutrophils 62.3 % (42.0-75.0); Hemoglobin 7.8 g/dL (12.0-16.0); Mean Corpuscular HGB CONC 32.7 g/dL (32.0-36.0); Mean Corpuscular Hemoglobin 29.5 pg (27.0-31.0); Mean Corpuscular Volume 90.4 fL (78.0-98.0); Mean Platelet Volume 8.6 fL (7.4-10.4); Platelet Count 68 thou/uL (130-400); Red Blood Cell (RBC) Count 2.65 mill/uL (4.20-5.40); White Blood Cell (WBC) Count 4.6 thou/uL (4.8-10.8)
--- NOTE | 2020-05-01 09:08 | CT ---
CT BRAIN WITHOUT CONTRAST: HISTORY: Fall with headache. Syncope COMPARISON: 04/16/2019 FINDINGS: No evidence of acute infarct, hemorrhage, midline shift or abnormal extra-axial fluid collections is seen. The ventricular size is appropriate and the basilar cisterns are patent. The bony calvarium is intact. The visualized paranasal sinuses and mastoid air cells are well aerated. A small scalp con tusion is seen in the left posterior parietal region. IMPRESSION: No CT evidence of acute intracranial process.
--- NOTE | 2020-05-01 09:15 | RAD ---
PELVIS 1 VIEW: HISTORY: Pain. COMPARISON: None. FINDINGS: Exam is limited due to under penetration from habitus. Obturator rings appear to be intact. The fem oral heads and necks appear to be intact. No definite SI joint widening or pubis symphyseal widening . IMPRESSION: No definite acute osseous abnormality appreciated given limitation of decreased penetration. POS: [facility]
--- NOTE | 2020-05-01 09:17 | CT ---
CT CERVICAL SPINE WITH CORONAL AND SAGITTAL REFORMATIONS AND NO IV CONTRAST: HISTORY: Fall, neck pain FINDINGS: There is loss of cervical lordosis with mild reversal. No fracture, subluxation or facet malalignment is identified. No prevertebral soft tissue swelling is apparent. Upper lung findings are similar to those seen on the CT neck of 04/25/2019 IMPRESSION: No CT evidence for fracture or traumatic subluxation.
== END 2020-05-01 10:35 | disposition home or self-care (01) ==
LOC: ERS 07:39
DX: R55 Syncope and collapse (principal); G89.29 Other chronic pain; I12.0 Hypertensive chronic kidney disease with stage 5 chronic kidney disease or end stage renal disease; N18.6 End stage renal disease; M54.2 Cervicalgia; M25.551 Pain in right hip; R51 Headache; Z99.2 Dependence on renal dialysis; Z79.899 Other long term (current) drug therapy
CPT/HCPCS: 70450; 72125; 72170; 80053; 82550; 84484; 85025; 93005; 96374; J2270

== ENCOUNTER 2020-05-14 17:05 | Observation (INO) | payer OTHER ==
--- NOTE | 2020-05-14 17:22 | CT ---
Head CT without contrast 05/14/2020: COMPARISON: 05/01/2020 HISTORY: Altered mental status, stroke alert TECHNIQUE: Axial CT imaging at 5 mm intervals from vertex through skull base without contrast FINDINGS: Imaged paranasal sinuses and mastoid air cells are well-aerated. No displaced calvarial fra cture, intracranial hemorrhage, midline shift, or mass effect. No acute intracranial abnormality. IMPRESSION: No acute findings. Results relayed to Dr. Pabon at 5:19 PM 05/14/2020
[2020-05-14 18:32] LABS: Hemoglobin 9.8 g/dL (12.0-16.0); Mean Corpuscular HGB CONC 33.2 g/dL (32.0-36.0); Mean Corpuscular Hemoglobin 28.6 pg (27.0-31.0); Mean Corpuscular Volume 86.3 fL (78.0-98.0); RBC Distribution Width 20.3 % (11.5-14.5); Red Blood Cell (RBC) Count 3.42 mill/uL (4.20-5.40); White Blood Cell (WBC) Count 3.1 thou/uL (4.8-10.8)
[2020-05-14 18:36] LABS: INR-International Normal Ratio 1.2; Prothrombin Time 15.2 sec (12.0-14.7)
[2020-05-14 18:37] LABS: BHCG - Serum Negative (NEGATIVE); PTT 36.5 sec (22.9-36.1); Pregs Control Background? CLEAR/WHITE (CLR/WHITE); Pregs Control Bar Appear? YES (CONTROL BAR)
[2020-05-14 18:41] LABS: #Eosinphils 0.1 thou/uL (0.0-0.7); #Lymphocytes 0.8 thou/uL (1.20-3.40); #Monocytes 0.2 thou/uL (0.11-0.59); %Eosinophils 2.6 % (0.0-10.0); %Lymphocytes 26.5 % (21.0-51.0); %Monocytes 6.7 % (0.0-10.0); %Neutrophils 64.1 % (42.0-75.0); Mean Platelet Volume 5.2 fL (7.4-10.4); Platelet Count 49 thou/uL (130-400)
[2020-05-14 18:47] LABS: ALT (SGPT) 12 U/L (8-55); AST (SGOT) 28 U/L (5-34); Acetaminophen Less than 6.0 mcg/mL (10.0-30.0); Albumin 3.5 g/dL (3.5-5.0); Alcohol Less than 10 mg/dL (Less than 10); Alkaline Phosphatase 271 U/L (40-110); Anion Gap 17 mmol/L (10-20); BUN (Urea Nitrogen) 33 mg/dL (7.0-18.7); Bilirubin, Total 1.1 mg/dL (0.2-1.2); CK (CPK) 66 U/L (29-168); Calc. Creatinine Clearance 0 mL/min (70-130); Calcium 8.8 mg/dL (7.8-10.44); Carbon Dioxide 27 mmol/L (22-29); Chloride 99 mmol/L (98-107); Estimated GFR-MDRD 10; Globulin 4.2 g/dL (2.4-3.5); Glucose 104 mg/dL (70-105); Lipase 123 U/L (8-78); Magnesium 2.4 mg/dL (1.6-2.6); Protein, Total 7.7 g/dL (6.0-8.3); Salicylate Less than 8.0 mg/dL (15.0-30.0); Sodium 139 mmol/L (136-145)
--- NOTE | 2020-05-14 18:51 | CT ---
CT abdomen and pelvis: 05/14/2020 COMPARISON: 04/19/2019 HISTORY: Back pain TECHNIQUE: Axial CT imaging at 5 mm intervals through the abdomen and pelvis without contrast. Brasher l and sagittal reformatted imaging obtained. FINDINGS: The lack of contrast media limits assessment of the viscera, bowel, vascular structures, an d for lymphadenopathy. Nonspecific increased linear interstitial density noted within the lung bases. No free intraperitoneal air is noted. Distal aspect of catheter tubing overlies right atrium. The heart appears enlarged. The liver demonstrates a cirrhotic configuration with a recanalized paraumbilical vein noted. Multiple calcified stones are seen within the gallbladder. The inferior chyna a cava is distended. Spleen is enlarged, measuring 14.7 cm in AP dimension. The kidneys are markedly atrophic. The pancreas is grossly unremarkable. There is diffuse anasarca with stranding of the subcutaneous fa t and thickening of the skin throughout the abdomen/pelvis. Limited assessment of the bowel demonstrates no evidence for obstruction evaluation of the bowel is limited secondary to motion artif act. Review of the osseous structures demonstrates diffuse abnormal mottled density, likely on the basis o f renal osteodystrophy. Erosive changes are noted at the L4-5 level, which appear unchanged when compared to the 04/19/2019 examination findings could be related to advanced degenerative change or ch ronic discitis/osteomyelitis. IMPRESSION: Cirrhotic configuration of the liver with evidence of portal hypertension. Erosive change at the L4-5 level. Cholelithiasis.
[2020-05-14 18:53] LABS: Anisocytosis SLIGHT = 6-15 cells (100X) (0-5/hpf); Elliptocytes SLIGHT = 2-5 cells (100X) (0-1/hpf); MDiff Complete? YES; Platelet Morphology Comment Appears Decreased; Polychromasia SLIGHT = 2-3 cells (100X) (0-2/hpf); Tear Drops SLIGHT = 2-5 cells (100X) (0-1/hpf)
[2020-05-14 19:46] LABS: Bacteria/HPF None Seen HPF (None Seen); Bilirubin Negative (Negative); Blood, Urine 2+ (Negative); Clarity Clear (Clear); Glucose, Urine (Dipstick) 100 mg/dL (Negative); Ketone, Urine Negative (Negative); Leukocyte 25 Leu/uL (Negative); Nitrite Negative (Negative); Protein, Urine (Dipstick) 50 mg/dL (Neg-Trace); RBC/HPF 21-50 HPF (0-3); Specific Gravity, Urine 1.007 (1.002-1.036); Squamous Epithelial None Seen HPF (0-3); Urobilinogen Normal mg/dL (Less than 2); pH, Urine 7.5 (5.0-9.0)
[2020-05-14 19:54] LABS: Amphetamine Not Detected (NotDetected); Barbiturates Screen Not Detected (NotDetected); Benzodiazepine Screen Not Detected (NotDetected); Cocaine Metabolite Screen Not Detected (NotDetected); Medtox Control Line Valid? VALID (VALID); Medtox Reader # READER 4; Methadone Not Detected (NotDetected); Methamphetamine Not Detected (NotDetected); Opiate Screen Detected (NotDetected); Oxycodone Screen Not Detected (NotDetected); Phencyclidine (PCP) Not Detected (NotDetected); THC/Cannabinoid Screen Not Detected (NotDetected); Tricyclic Screen Not Detected (NotDetected)
[2020-05-14] MEDS ORDERED: Morphine 4 MG/ML VIAL ONE (21:09)
[2020-05-14 21:55] LABS: Troponin I 0.025 ng/mL (< 0.028)
[2020-05-14 22:46] VITALS: BMI 37.4
[2020-05-14] MEDS ORDERED: Guaifenesin DM 100-10/5 ML UDCUP PO PRN (23:19)
[2020-05-14] MEDS ORDERED: hydrALAZINE 20 MG/ML VIAL SLOW IVP PRN (23:19)
[2020-05-14] MEDS ORDERED: Labetalol HCl 100 MG/20 ML VIAL SLOW IVP PRN (23:19)
[2020-05-14] MEDS ORDERED: Ondansetron PF 4 MG/2 ML Vial IVP PRN (23:19)
[2020-05-14] MEDS ORDERED: cloNIDine 0.1 MG TAB PO PRN (23:19)
[2020-05-14] MEDS ORDERED: Promethazine HCl 12.5 MG in Sodium Chloride 0.9% 50 ML IVPB PRN (23:19)
[2020-05-14] MEDS ORDERED: Acetaminophen 325 MG TAB PO PRN (23:19)
--- NOTE | 2020-05-14 23:21 | PDOC.HHP ---
Hospitalist HPI - History of Present Illness Altered mental status, hip pain History of Present Illness: Patient is a 44 year old female with PMH of ESRD w/ HD on MWF, HTN, HLD who presents to ED for altered mental status, bilateral hip wounds and pain. She sees Dr Cast, had HD today with no issues, however during treatment apparently fainted at HD center, became suddenly confused, complains of diffuse pain but mostly in bilateral hips. She has developed bilateral hip pressure ulcers which are extremely painful to light touch over last 4 months, family helps her dress wounds. Patient denies fever, chills, denies pus/erythema of the hip wounds. She is AOx1 and confused/altered. She was recently discharged from [facility] in [place], still has armband, remembers she was admitted for fall but is not sure exactly what happened during whole course of admission. In ED, EKG without acute changes, CT A/P performed without obvious cause of symptoms, patient admitted for further evaluation and care. Hospitalist ROS - Review of Systems Constitutional: reports: other (altered mental status). denies: fever, chills, sweats, weakness, malaise Eyes: denies: pain, vision change, conjunctivae inflammation, eyelid inflammation, redness, other ENT: denies: ear pain, ear discharge, nose pain, nose discharge, nose congestion, mouth pain, mouth swelling, throat pain, throat swelling, other Respiratory: denies: cough, dry, shortness of breath, hemoptysis, SOB with excertion, pleuritic pain, sputum, wheezing, other Gastrointestinal: denies: nausea, vomiting, abdominal pain, diarrhea, constipation, melena, hematochezia, other Genitourinary: denies: dysuria, frequency, incontinence, hematuria, retention, other Musculoskeletal: reports: other (bilateral hip pain and wounds) Skin: reports: lesions (bilateral hip wounds). denies: rash, leland, bruising, other Neurological: denies: weakness, numbness, incoordination, change in speech, co nfusion, seizures, other All other systems reviewed; all pertinent +/- noted in HPI/Subj Hospitalist History - Past Medical History Other Medical History: ESRD w/ HD on MWF, HTN, HLD - Past Surgical History Other Surgical History: hip sx, ablation, c-sect x 2, L upper arm fistula. - Family History Family History: reports: no pertinent history - Social History Smoking Status: Never smoker Alcohol: reports: None Drugs: reports: none - Exam General Appearance: NAD, awake alert General - other findings: altered mental status Eye: PERRL, anicteric sclera ENT: normocephalic atraumatic, no oropharyngeal lesions, moist mucosa Neck: supple, symmetric, no JVD, no thyromegaly, no lymphadenopathy, no carotid bruit Heart: RRR, no murmur, no gallops, no rubs, normal peripheral pulses Respiratory: CTAB, no wheezes, no rales, no ronchi, normal chest expansion, no tachypnea, normal percussion Gastrointestinal: soft, non-tender, non-distended, normal bowel sounds, no palpable masses, no hepatomegaly, no splenomegaly, no bruit Extremities: no cyanosis, no clubbing, no edema Extremities - other findings: AVF L upper extremity Skin - other findings: bilateral hip wounds yellow no pus or erythema, granulated, 9x3 cm Neurological: cranial nerve grossly intact, normal sensation to touch, no weakness, no focal deficits, no new deficit Neurological - other findings: altered mental status Musculoskeletal: normal tone, normal strength, no muscle wasting Psychiatric - other findings: unable to evaluate Hospitalist Results - Labs Result Diagrams: 05/14/20 18:21 05/14/20 18:21 Lab results: WBC 3.1 thou/uL (4.8-10.8) L 05/14/20 18:21 Hgb 9.8 g/dL (12.0-16.0) L 05/14/20 18:21 Hct 29.5 % (36.0-47.0) L 05/14/20 18:21 MCV 86.3 fL (78.0-98.0) 05/14/20 18:21 Plt Count 49 thou/uL (130-400) L 05/14/20 18:21 Neutrophils % 64.1 % (42.0-75.0) 05/14/20 18:21 Sodium 139 mmol/L (136-145) 05/14/20 18:21 Potassium 4.0 mmol/L (3.5-5.1) 05/14/20 18:21 Chloride 99 mmol/L (98-107) 05/14/20 18:21 Carbon Dioxide 27 mmol/L (22-29) 05/14/20 18:21 BUN 33 mg/dL (7.0-18.7) H 05/14/20 18:21 Creatinine 4.92 mg/dL (0.6-1.1) H 05/14/20 18:21 Glucose 104 mg/dL (70-105) 05/14/20 18:21 Lactic Acid 1.6 mmol/L (0.5-2.2) 05/14/20 18:21 Calcium 8.8 mg/dL (7.8-10.44) 05/14/20 18:21 Total Bilirubin 1.1 mg/dL (0.2-1.2) 05/14/20 18:21 AST 28 U/L (5-34) 05/14/20 18:21 ALT 12 U/L (8-55) 05/14/20 18:21 Alkaline Phosphatase 271 U/L (40-110) H 05/14/20 18:21 Creatine Kinase 66 U/L (29-168) 05/14/20 18:21 Troponin I 0.025 ng/mL (< 0.028) 05/14/20 21:29 Serum Total Protein 7.7 g/dL (6.0-8.3) 05/14/20 18:21 Albumin 3.5 g/dL (3.5-5.0) 05/14/20 18:21 Lipase 123 U/L (8-78) H 05/14/20 18:21 Urine Ketones Negative mg/dL (Negative) 05/14/20 19:31 Urine Blood 2+ (Negative) A 05/14/20 19:31 Urine Nitrite Negative (Negative) 05/14/20 19:31 Ur Leukocyte Esterase 25 Olga/uL (Negative) A 05/14/20 19:31 Urine RBC 21-50 HPF (0-3) A 05/14/20 19:31 Urine WBC 4-6 HPF (0-3) A 05/14/20 19:31 Ur Squamous Epith Cells None Seen HPF (0-3) 05/14/20 19:31 Urine Bacteria None Seen HPF (None Seen) 05/14/20 19:31 Additional comment: VITAL SIGNS Wed May 14, 2020 21:10 ZACHARY Call, Emmy BP: 132/85 Pulse: 77 Resp: 16 O2 sat: 100 on (Room Air) Time: 05/14/2020 21:10. all labs, imaging reports, ED documents reviewed CT head - no acute IC findings CT A/P cirrhotic findings of liver - EKG Interpretation EKG: NSR, 82 bpm, 1st degree AVB w/ IN 336, QTC 462, Hospitalist H&P A/P - Plan Plan: Patient is a 44 year old female with PMH of ESRD w/ HD on MWF, HTN, HLD who presents to ED for altered mental status, bilateral hip wounds and pain. # altered mental status - unclear etiology, possiblilities include hepatic encephalopathy with new imaging diagnosis of possible cirrhosis, could also be metabolic encephalopathy from UTI (UA only weakly positive though), hip wounds dont appear infected to me but will start empiric vancomycin while awaiting surgery consult. - admit to floor - empiric vancomycin/ceftriaxone - follow blood/urine cultures - ammonia ordered, empiric lactulose (can stop if ammonia not elevated) - She was recently discharged from [facility] in [place], still has armband, remembers she was admitted for fall but is not sure exactly what happened during whole course of admission. request records in AM if needed # cirrhosis - i believe this may be new diagnosis? can likely see GI as outpatient, refer at discharge # bilateral hip wounds - pressure wounds I believe, noninfectious on appearance but will seek specialist opinion - wound care nursing consult - general surgery consult - continue mepilex to cover for now # HTN - PRN medications ordered, resume home nifedipine # HLD - recommend outpatient management, not on statin # ESRD - consult nephrology DVT/GI ppx full code
[2020-05-14] MEDS ORDERED: Electrolyte Replacement Protoc 1 EACH EACH FS SCH (23:30)
[2020-05-15 01:21] LABS: Troponin I 0.022 ng/mL (< 0.028)
[2020-05-15] MEDS ORDERED: Vancomycin 1 GM in Premix Bag 1 BAG IVPB ONE (03:03)
[2020-05-15] MEDS ORDERED: Vancomycin HCl 500 MG in Sodium Chloride 0.9% 100 ML IVPB SCH (03:15)
[2020-05-15] MEDS ORDERED: Vancomycin HCl 750 MG in Sodium Chloride 0.9% 250 ML 250 ML IVPB SCH (03:15)
[2020-05-15] MEDS ORDERED: Vancomycin 1 GM in Premix Bag 1 BAG IVPB SCH (03:15)
[2020-05-15] MEDS ORDERED: Vancomycin HCl 1.25 GM in Sodium Chloride 0.9% 250 ML 250 ML IVPB SCH (03:15)
[2020-05-15] MEDS ORDERED: HOLD VANCOMYCIN FOR LEVEL >20 FS SCH (03:15)
[2020-05-15] MEDS ORDERED: Vancomycin HCl 1.75 GM in Sodium Chloride 0.9% 500 ML IVPB SCH (03:30)
[2020-05-15] MEDS ORDERED: cefTRIAXone\\ROCEPHIN 1 GM in Sodium Chloride 0.9% 100 ML IVPB SCH ×2 (03:30→21:00)
[2020-05-15 05:11] LABS: Anion Gap 20 mmol/L (10-20); BUN (Urea Nitrogen) 39 mg/dL (7.0-18.7); Calc. Creatinine Clearance 20 mL/min (70-130); Calcium 8.4 mg/dL (7.8-10.44); Carbon Dioxide 23 mmol/L (22-29); Chloride 101 mmol/L (98-107); Estimated GFR-MDRD 9; Glucose 80 mg/dL (70-105); Magnesium 2.5 mg/dL (1.6-2.6); Potassium 4.6 mmol/L (3.5-5.1); Sodium 139 mmol/L (136-145)
[2020-05-15 05:17] LABS: #Eosinphils 0.1 thou/uL (0.0-0.7); #Lymphocytes 0.8 thou/uL (1.20-3.40); #Monocytes 0.2 thou/uL (0.11-0.59); #Neutrophils 1.7 thou/uL (1.40-6.50); %Basophils 1.1 % (0.0-1.0); %Eosinophils 3.1 % (0.0-10.0); %Lymphocytes 27.8 % (21.0-51.0); %Monocytes 7.5 % (0.0-10.0); %Neutrophils 60.6 % (42.0-75.0); Anisocytosis SLIGHT = 6-15 cells (100X) (0-5/hpf); Hemoglobin 7.7 g/dL (12.0-16.0); MDiff Complete? YES; Mean Corpuscular HGB CONC 32.6 g/dL (32.0-36.0); Mean Corpuscular Hemoglobin 28.5 pg (27.0-31.0); Mean Corpuscular Volume 87.3 fL (78.0-98.0); Mean Platelet Volume 12.2 fL (7.4-10.4); Platelet Count 47 thou/uL (130-400); Platelet Morphology Comment Appears Decreased; RBC Distribution Width 19.8 % (11.5-14.5); Red Blood Cell (RBC) Count 2.69 mill/uL (4.20-5.40); White Blood Cell (WBC) Count 2.8 thou/uL (4.8-10.8)
--- NOTE | 2020-05-15 07:09 | RAD ---
1234 PORTABLE CHEST ONE VIEW: 05/14/20 at 5:37 p.m. HISTORY: Level I stroke. COMPARISON: 03/14/20. The heart is enlarged. Right sided internal jugular venous catheter remains in place with tip in the projection of the cavoatrial junction. No lobar consolidation, pneumothoraces, ramana pulmonary edema or pleural effusions are seen. IMPRESSION: No acute process. POS: FRANCHESCA
[2020-05-15] MEDS: Famotidine 20 MG TAB PO SCH (08:16)
[2020-05-15] MEDS: Polyethylene Glycol 3350 17 GM Packet PO SCH (08:17)
[2020-05-15] MEDS: Bicitra 30 ML UDCUP PO SCH ×4 (08:18→21:05)
[2020-05-15] MEDS ORDERED: NIFEdipine XL 60 MG TAB PO SCH (09:00)
[2020-05-15] MEDS: Morphine 2 MG/ML VIAL SLOW IVP PRN ×3 (09:21→21:52)
[2020-05-15] MEDS: Sevelamer Carbonate 800 MG TAB PO SCH ×2 (12:01→18:18)
--- NOTE | 2020-05-15 12:02 | CON ---
DATE OF CONSULTATION: 05/15/2020 SERVICE: Nephrology. REASON FOR CONSULTATION: End-stage renal disease management. REQUESTING PHYSICIAN: Chris Haque MD CHIEF COMPLAINT: Acute mental status change. HISTORY OF PRESENT ILLNESS: A 44-year-old female with known history of end- stage renal disease on hemodialysis, liver cirrhosis, amongst others, who was admitted after transfer from outpatient dialysis unit due to acute onset of mental status change. The patient reportedly developed acute mental status change at the end of hemodialysis. The patient was said to be confused, disoriented, and was unable to name nursing staff at the dialysis unit, which is very unusual for her. She also was unable to speak and verbalize appropriately. There was no associated fever or focal weakness. The patient run for usual 4 hours with no hypotension. In fact, blood pressure improved after dialysis to 130 systolic from 120 systolic prior to dialysis. There was also no associated nausea or vomiting. The patient had complained of worsening pain at the wound on both hips, for which she got acetaminophen during dialysis. There was no associated chest pain or shortness of breath. Of note, the patient was recently hospitalized at the [facility] after a fall and had hemodialysis there. She returned to the area on May 12 and yesterday was is first dialysis. PAST MEDICAL HISTORY: 1. End-stage renal disease on hemodialysis. 2. Hypertension. 3. Hyperlipidemia. 4. Liver cirrhosis. 5. Chronic pancytopenia. 6. Obesity. 7. Prior hepatitis C infection. 8. Noncompliance. 9. 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 10. Chronic diastolic heart failure. 11. Secondary hyperparathyroidism. PAST SURGICAL HISTORY: 1. Hip replacement. 2. section. 3. Left upper arm AV fistula creation. FAMILY HISTORY: Significant for diabetes and chronic kidney disease. SOCIAL HISTORY: The patient currently lives with kids. She is . She denied smoking, alcohol, or recreational drug use. ALLERGIES: HEPARIN. MEDICATIONS: Prior to hospital medications as follows; 1. Acetaminophen/hydrocodone one q.4 p.r.n. 2. Furosemide 20 mg p.o. b.i.d. 3. Lactulose 20 g p.o. t.i.d. 4. Phosphate binder. The patient was supposed to be on Renvela, but that is not listed in home medication. 5. Ceftriaxone 1 g daily. 6. Vancomycin was per Pharmacy. 7. Nifedipine 60 mg p.o. daily. 8. Lactulose 20 g p.o. b.i.d. 9. Pepcid 20 mg p.o. daily. REVIEW OF SYSTEMS: A 12-point review of system performed was negative other than pertinent positives and negatives included in the history of present illness. PHYSICAL EXAMINATION: VITAL SIGNS: Temperature 98.5, pulse 79 respiratory rate 12, SpO2 of 97% on room air, and blood pressure is 117/59. GENERAL: Obese female, in no obvious distress. Afebrile. Anicteric. Acyanotic. HEENT: Normocephalic and atraumatic. Oral mucosa is moist. NECK: Supple with no obvious JVD. Right IJ tunneled dialysis catheter noted. CARDIOVASCULAR: Regular rhythm and rate with normal. Heart sounds one and two. Soft systolic murmur noted. RESPIRATORY: Fair air entry bilaterally with few transmitted breath sounds, but no obvious crackle or rhonchi or use of accessory muscles. GI: Obese, soft, nondistended, and nontender with normal bowel sounds. MUSCULOSKELETAL/EXTREMITIES: Left upper arm AV fistula with thrill noted. Scars of prior surgeries on the left arm noted as well. Moderate bilateral leg edema noted as well as scattered hyper and hypopigmented spots on both lower extremities. Dressing on both lateral aspect of hip noted. ENDODONTIST: Conscious, alert, and oriented x3 with appropriate mental status. Cranial nerves 2 through 12 are grossly intact. The patient moves all extremities. DIAGNOSTIC DATA: CBC today showed WBC count of 2.8, hemoglobin of 7.7, and platelet of 47. On presentation, yesterday's WBC was 3.1, hemoglobin was 9.8, and platelet 49. MCV is 87.3. Chemistry today showed sodium 139, potassium 4.6, chloride 101, CO2 of 23, BUN 39, creatinine 5.31, glucose 80, calcium 8.4, phosphorus 6.0, and magnesium 2.5. Ammonia today is 52. On presentation last night; sodium was 139, potassium 4.0, chloride 99, CO2 of 27, BUN 33, creatinine 4.92, glucose 104, calcium 8.8, magnesium 2.4, total bilirubin 1.1, AST 28, ALT 12, alkaline phosphatase 271, total protein 7.7, and albumin 3.5. CK 66 and troponin 0.021. Lipase 123. Lactic acid yesterday was 1.6. Coagulation panel yesterday showed PT 15.2, INR 1.2, and PTT 36.5. Urinalysis yesterday showed light yellow urine with pH of 7.5, specific gravity of 1.007. Urine protein of 50 mg/dL, ketone negative, and blood 2+. Nitrite negative. Bilirubin negative. Leukocyte esterase; however, was positive. Microscopy showed 21 to 50 rbc's and 4 to 6 wbc with no bacteria seen. Toxicology performed yesterday showed was only positive for opiates on urine drug screen. Salicylate, acetaminophen, and alcohol were unremarkable. Chest x-ray performed yesterday showed enlarged heart with right-sided internal jugular venous catheter, which is in place with hip in the cavoatrial junction. No lobar consolidation, pneumothorax, or ramana pulmonary edema, or pleural effusion were noted. CT scan of the brain performed yesterday May 14 showed well aerated paranasal and mastoid air cells. No displaced calvarial fracture, intracranial hemorrhage, midline shift or mass effect noted. With impression of no acute finding. CT scan of the abdomen and pelvis without contrast performed on May 14 showed cirrhotic configuration of the liver with evidence of portal hypertension as well as erosive changes at the L4-L5 level and cholelithiasis. ASSESSMENT: 1. End-stage renal disease, on hemodialysis. 2. Acute mental status change: Transient. The patient seems back to baseline. Transient ischemic attack is a concern. There was no fever or signs features to suggest acute infection. Occult infection; however; is a concern. Of note, during hemodialysis yesterday, there was no hypotensive episode. 3. Possible transient ischemic attack. 4. Liver cirrhosis: Compensated. 5. History of hepatitis C infection. The patient seems to have received treatment. 6. Presumed calciphylaxis on treatment with sodium to see if it post dialysis. 7. Bilateral hip wounds: This was thought to be due to calciphylaxis. Wound care ongoing. 8. Hypertension: Control. Currently off medication. 9. Secondary hyperparathyroidism. 10. Hyperphosphatemia. 11. Pancytopenia, chronic. Most likely related to liver cirrhosis. 12. Chronic bilateral leg edema: Due to liver cirrhosis and end-stage renal disease as well as chronic diastolic heart failure. 13. Morbid obesity. 14. Volume overload. Patient is clearly volume overloaded due to missed dialysis and is well above her dry weight. She is in the process of arranging extra treatment before her admision. PLAN: Will dailyse patient today with UF as tolerated. We will discontinue nifedipine to prevent hypotensive episode. Empiric antibiotics to continue while blood cultures are awaited. Acute drop in hemoglobin from 9.8 to 7.7 is of unclear etiology. There is no overt bleeding. Correction of hemoconcentration following hemodialysis yesterday is likely. We will plan on dialyzing the patient tomorrow if she is still here. Many thanks for involving us in the care of this patient. We will follow along with you. Job ID: [id number] MTDD
[2020-05-15 12:19] LABS: SARS-CoV-2 MS2 Positive; SARS-CoV-2 N Gene Negative; SARS-CoV-2 S Gene Negative; SARS-CoV-2 by NAA Not Detected (NotDetected); SARS-CoV-2 orf1ab Negative
--- NOTE | 2020-05-15 13:24 | PDOC.HOSPP ---
- Subjective Encounter Date: 05/15/20 Encounter Time: 11:00 Subjective: Seen and examined in bed. She was sitting up in bed in no distress. She denied any chest pain or shortness of breath. She denied any confusion Heart pain on the lateral aspect of her thighs bilaterally. - Objective Vital Signs & Weight: Vital Signs (12 hours) Temp Pulse Resp BP BP Pulse Ox 05/15/20 11:10 98.2 F 76 15 121/69 97 05/15/20 07:56 98.5 F 79 12 117/59 L 97 05/15/20 04:00 98.7 F 81 20 117/64 97 Weight Weight 204 lb 11.2 oz I&O: 05/14/20 05/15/20 05/16/20 06:59 06:59 06:59 Intake Total 100 Balance 100 Result Diagrams: 05/15/20 04:26 05/15/20 04:26 Hospitalist ROS - Medication Medications: Active Medications Generic Name Dose Route Start Last Admin Trade Name Freq PRN Reason Stop Dose Admin Citric Acid/Sodium Citrate 30 ml 05/15/20 09:00 05/15/20 12:01 Bicitra 30 Ml Udcup PO 30 ml PCHS CHUCHO Administration Famotidine 20 mg 05/15/20 09:00 05/15/20 08:16 Famotidine 20 Mg Tab PO 20 mg DAILY CHUCHO Administration Lactulose 20 gm 05/15/20 09:00 05/15/20 08:17 Lactulose 20 Gm/30 Ml Udcup PO 20 gm BID CHUCHO Administration Morphine Sulfate 2 mg 05/14/20 23:19 05/15/20 09:21 Morphine 2 Mg/Ml Vial SLOW IVP 2 mg Q4H PRN Administration severe pain 4-10 Polyethylene Glycol 17 gm 05/15/20 09:00 05/15/20 08:17 Polyethylene Glycol 3350 17 Gm Packet PO Not Given DAILY CHUCHO Sevelamer Carbonate 800 mg 05/15/20 12:00 05/15/20 12:01 Sevelamer Carbonate 800 Mg Tab PO 800 mg TID-WM CHUCHO Administration - Exam General - other findings: In bed, no acute distress Heart - other findings: S1-S2 present and normal. No murmurs gallops or rubs. Respiratory - other findings: Air entry adequate bilaterally. No rhonchi or rales. Gastrointestinal - other findings: Soft, nontender, nondistended, bowel sounds present and normal. Extremities: 1+ LE edema (Bilaterally) Extremities - other findings: Graft on left arm. Right SC dialysis catheter Neurological: cranial nerve grossly intact, no focal deficits Psychiatric: A&O x 3 Hosp A/P - Plan This is a 44-year-old female patient with a history of ESRD On dialysis admitted a day ago on account of acute encephalopathy She is fully recovered today and generally stable. Acute encephalopathy Etiology remains unclear Initial suspicions concerning for an infectious source,: On remote effective hemodialysis. She also has liver cirrhosis secondary hepatitis C infection however appears compensated. Started on empiric antibioticsCeftriaxone and vancomycin We will follow-up on culture results. ESRD Possible dialysis today Nephrology on board. Calciphylaxis with bilateral hip wounds Reopen wounds on lateral side of hips bilaterally. Wound dressed by wound care. We will continue monitor. Cirrhosis Likely new diagnosis No apparent acute decompensation With a history of hepatitis C Continue lactulose Given stabilitywe will follow-up on outpatient basis. Hypertension Continue on nifedipine next Hyperlipidemia Continue statin DVT prophylaxisSCDs. She is allergic to heparin Dispositionpossible discharge tomorrow
[2020-05-16] MEDS: HYDROcodone/Acetaminophen 5/325 mg Tablet PO PRN ×4 (04:03→18:18)
[2020-05-16 04:56] LABS: #Basophils 0.1 thou/uL (0.0-0.2); #Eosinphils 0.1 thou/uL (0.0-0.7); #Monocytes 0.4 thou/uL (0.11-0.59); #Neutrophils 2.2 thou/uL (1.40-6.50); %Basophils 1.3 % (0.0-1.0); %Eosinophils 2.9 % (0.0-10.0); %Lymphocytes 26.8 % (21.0-51.0); %Monocytes 9.6 % (0.0-10.0); %Neutrophils 59.4 % (42.0-75.0); Hemoglobin 7.5 g/dL (12.0-16.0); Mean Corpuscular HGB CONC 32.5 g/dL (32.0-36.0); Mean Corpuscular Hemoglobin 29.1 pg (27.0-31.0); Mean Corpuscular Volume 89.5 fL (78.0-98.0); Mean Platelet Volume 11.6 fL (7.4-10.4); Platelet Count 48 thou/uL (130-400); Red Blood Cell (RBC) Count 2.57 mill/uL (4.20-5.40); White Blood Cell (WBC) Count 3.8 thou/uL (4.8-10.8)
[2020-05-16 05:43] LABS: Anion Gap 16 mmol/L (10-20); BUN (Urea Nitrogen) 30 mg/dL (7.0-18.7); Calc. Creatinine Clearance 25 mL/min (70-130); Calcium 8.1 mg/dL (7.8-10.44); Carbon Dioxide 25 mmol/L (22-29); Chloride 103 mmol/L (98-107); Estimated GFR-MDRD 12; Glucose 81 mg/dL (70-105); Magnesium 2.3 mg/dL (1.6-2.6); Phosphorus 4.8 mg/dL (2.3-4.7); Potassium 4.7 mmol/L (3.5-5.1); Sodium 139 mmol/L (136-145)
[2020-05-16] MEDS: Famotidine 20 MG TAB PO SCH (08:11)
[2020-05-16] MEDS: Bicitra 30 ML UDCUP PO SCH ×2 (08:11→13:01)
[2020-05-16] MEDS: Sevelamer Carbonate 800 MG TAB PO SCH ×3 (08:11→17:44)
[2020-05-16 08:32] LABS: Vancomycin, Random 21.4 ug/mL (See Comment)
[2020-05-16] MEDS: Polyethylene Glycol 3350 17 GM Packet PO SCH (08:56)
--- NOTE | 2020-05-16 12:04 | PDOC.NEPPN ---
- Subjective Encounter Date: 05/16/20 Subjective: Seen in follow up for ESRD management. Admitted due to acute mental status change after HD on 05/14/2020. Feel normal with no complaint. Denied fever, nausea and vomiting. - Objective Vital Signs & Weight: Vital Signs (12 hours) Temp Pulse Resp BP Pulse Ox 05/16/20 11:46 98.5 F 81 19 119/59 L 96 05/16/20 07:34 98.1 F 78 19 124/64 92 L 05/16/20 04:00 98.3 F 81 20 125/65 98 Weight Admit Weight 204 lb 11.2 oz Weight 177 lb 3 oz I&O: 05/15/20 05/16/20 05/17/20 06:59 06:59 06:59 Intake Total 100 1400 Balance 100 1400 Result Diagrams: 05/16/20 04:02 05/16/20 04:02 Nephrology ROS - Medication Medications: Active Medications Generic Name Dose Route Start Last Admin Trade Name Freq PRN Reason Stop Dose Admin Hydrocodone Bitart/Acetaminophen 1 tab 05/14/20 23:19 05/16/20 08:10 Hydrocodone/Acetaminophen 5/325 Mg Tablet PO 1 tab Q4H PRN Administration Moderate Pain (4-6) Citric Acid/Sodium Citrate 30 ml 05/15/20 09:00 05/16/20 08:11 Bicitra 30 Ml Udcup PO 30 ml PCHS CHUCHO Administration Famotidine 20 mg 05/15/20 09:00 05/16/20 08:11 Famotidine 20 Mg Tab PO 20 mg DAILY CHUCHO Administration Ceftriaxone Sodium 1 gm/ 100 mls @ 200 mls/hr 05/15/20 21:00 05/15/20 21:05 Sodium Chloride IVPB 100 mls HS CHUCHO Administration Lactulose 20 gm 05/15/20 09:00 05/16/20 08:11 Lactulose 20 Gm/30 Ml Udcup PO 20 gm BID CHUCHO Administration Morphine Sulfate 2 mg 05/14/20 23:19 05/15/20 21:52 Morphine 2 Mg/Ml Vial SLOW IVP 2 mg Q4H PRN Administration severe pain 4-10 Polyethylene Glycol 17 gm 05/15/20 09:00 05/16/20 08:56 Polyethylene Glycol 3350 17 Gm Packet PO Not Given DAILY CHUCHO Sevelamer Carbonate 800 mg 05/15/20 12:00 05/16/20 08:11 Sevelamer Carbonate 800 Mg Tab PO 800 mg TID-WM CHUCHO Administration - Exam General Appearance: awake alert General - other findings: obese Eye: PERRL, anicteric sclera ENT: normocephalic atraumatic, moist mucosa Neck: supple, symmetric, no JVD Respiratory: CTAB, no wheezes, no ronchi, normal chest expansion Cardiovascular: RRR, murmur present Gastrointestinal: soft, non-tender, non-distended, normal bowel sounds Extremities: no edema Neurological: CN's grossly intact, no focal deficits Musculoskeletal - other findings: Bilateral lateral hip dressings noted PSYCH: A&O x 3 Nephrology Results - Labs Result Diagrams: 05/16/20 04:02 05/16/20 04:02 Lab results: WBC 3.8 thou/uL (4.8-10.8) L 05/16/20 04:02 Hgb 7.5 g/dL (12.0-16.0) L 05/16/20 04:02 Hct 23.0 % (36.0-47.0) L 05/16/20 04:02 MCV 89.5 fL (78.0-98.0) 05/16/20 04:02 Plt Count 48 thou/uL (130-400) L 05/16/20 04:02 Neutrophils % 59.4 % (42.0-75.0) 05/16/20 04:02 Sodium 139 mmol/L (136-145) 05/16/20 04:02 Potassium 4.7 mmol/L (3.5-5.1) 05/16/20 04:02 Chloride 103 mmol/L (98-107) 05/16/20 04:02 Carbon Dioxide 25 mmol/L (22-29) 05/16/20 04:02 BUN 30 mg/dL (7.0-18.7) H 05/16/20 04:02 Creatinine 4.18 mg/dL (0.6-1.1) H 05/16/20 04:02 Glucose 81 mg/dL (70-105) 05/16/20 04:02 Lactic Acid 1.6 mmol/L (0.5-2.2) 05/14/20 18:21 Calcium 8.1 mg/dL (7.8-10.44) 05/16/20 04:02 Total Bilirubin 1.1 mg/dL (0.2-1.2) 05/14/20 18:21 AST 28 U/L (5-34) 05/14/20 18:21 ALT 12 U/L (8-55) 05/14/20 18:21 Alkaline Phosphatase 271 U/L (40-110) H 05/14/20 18:21 Ammonia 52 umol/L (18-72) 05/15/20 04:26 Creatine Kinase 66 U/L (29-168) 05/14/20 18:21 Troponin I 0.022 ng/mL (< 0.028) 05/15/20 00:38 Serum Total Protein 7.7 g/dL (6.0-8.3) 05/14/20 18:21 Albumin 3.5 g/dL (3.5-5.0) 05/14/20 18:21 Lipase 123 U/L (8-78) H 05/14/20 18:21 Urine Ketones Negative mg/dL (Negative) 05/14/20 19:31 Urine Blood 2+ (Negative) A 05/14/20 19:31 Urine Nitrite Negative (Negative) 05/14/20 19:31 Ur Leukocyte Esterase 25 Olga/uL (Negative) A 05/14/20 19:31 Urine RBC 21-50 HPF (0-3) A 05/14/20 19:31 Urine WBC 4-6 HPF (0-3) A 05/14/20 19:31 Ur Squamous Epith Cells None Seen HPF (0-3) 05/14/20 19:31 Urine Bacteria None Seen HPF (None Seen) 05/14/20 19:31 Nephrology AP PN - Plan ESRD on HD. Last HD was yesterday 05/15/2020. Volume overload. Markedly improved with additional HD yesterday Calciphylaxis Secondary hyperparathyroidism Hyperphosphatemia Acute mental status change. ? TIA. HTN: controlled. Compensated Liver cirrhosis Obesity Chronic Pancytopenia Plan We will dialyze patient today in line with outpatient HD schedule. can be discharged from Nephrology point of view after HD. Other treatments as per primary attendin. Will restart sodium thiosulphate treatment at the dialysis unit. Continue renvela. Need to be on renal diet emphasized.
[2020-05-16 17:46] VITALS: BP 121/80; TEMP 98.6
--- NOTE | 2020-05-17 13:15 | EKG ---
Test Reason : STROKE LIKE Blood Pressure : / mmHG Vent. Rate : 082 BPM Atrial Rate : 082 BPM P-R Int : 336 ms QRS Dur : 116 ms QT Int : 396 ms P-R-T Axes : 029 013 002 degrees QTc Int : 462 ms Sinus rhythm with 1st degree A-V block Possible Left atrial enlargement Incomplete right bundle branch block Prolonged QT Abnormal ECG Confirmed by FELI ANDRE M.D. ([id number]), industrial editor YOLY VARGHESE ([id number]) on 05/17/2020 1:15:04 PM Referred By: THAI Confirmed By:FELI ANDRE M.D.
--- NOTE | 2020-05-19 14:00 | DIS ---
DATE OF ADMISSION: 05/14/2020 DATE OF DISCHARGE: 05/16/2020 DISCHARGE DIAGNOSES: 1. Acute encephalopathy. 2. ESRD. 3. Calciphylaxis with bilateral hip wounds. 4. Cirrhosis. 5. Hypertension. BRIEF HOSPITAL COURSE: This is a 44-year-old female patient with ESRD with calciphylaxis with bilateral hip wounds, who was found to have altered mental state at the end of dialysis on the day of presentation. She was brought in with initial concern for sepsis. She was started on antibiotics of vancomycin and Zosyn. She quickly recovered from her altered mental state even prior to presentation at the ED. Blood and urine cultures did not grow any organisms. Vancomycin was discontinued, and the patient was continued on Omnicef during discharge. She will follow up with Nephrology. PHYSICAL EXAMINATION: GENERAL: The patient is in no distress. RESPIRATORY SYSTEM: Air entry adequate bilaterally. No wheezes or rales. CARDIOVASCULAR SYSTEM: S1 and S2 present and normal. No murmurs, gallops, or rubs. ABDOMEN: Soft, nontender. EXTREMITIES: Bilateral pitting pedal edema. CONSULTATION: Nephrology, Dr. Cast. DISCHARGE CONDITION: Stable. Job ID: [id number] [facility]
== END 2020-05-16 18:35 | disposition home or self-care (01) ==
LOC: ERS 17:05 → 2NO 22:27
PROVIDERS: ADMIT Internal Medicine; ATTEND Internal Medicine
DX: G93.40 Encephalopathy, unspecified (principal); I13.2 Hypertensive heart and chronic kidney disease with heart failure and with stage 5 chronic kidney disease, or end stage renal disease; N18.6 End stage renal disease; I50.32 Chronic diastolic (congestive) heart failure; N25.81 Secondary hyperparathyroidism of renal origin; E83.59 Other disorders of calcium metabolism; L89.229 Pressure ulcer of left hip, unspecified stage; L89.219 Pressure ulcer of right hip, unspecified stage; K74.60 Unspecified cirrhosis of liver; E78.5 Hyperlipidemia, unspecified; K80.20 Calculus of gallbladder without cholecystitis without obstruction; D61.818 Other pancytopenia; E87.70 Fluid overload, unspecified; E83.39 Other disorders of phosphorus metabolism; E66.01 Morbid (severe) obesity due to excess calories; Z68.32 Body mass index [BMI] 32.0-32.9, adult; Z79.899 Other long term (current) drug therapy; Z88.8 Allergy status to other drugs, medicaments and biological substances; Z99.2 Dependence on renal dialysis
CPT/HCPCS: 36415; 36600; 51701; 70450; 71045; 74176; 80048; 80053; 80202; 80306; 80307; 81003; 81015; 82140; 82550; 83605; 83690; 83735; 84100; 84484; 84703; 85025; 85610; 85730; 87040; 87086; 87635; 90935; 93005; 96365; 96374; 96375; 96376; G0257; G0378; J0696; J2270; J3370; J3490; J7030; U0003

== ENCOUNTER 2020-11-10 10:36 | Inpatient (IN) | payer OTHER ==
[2020-11-10 10:59] LABS: Actual Bicarbonate (HCO3a) 20.3 mEq/L (22-28); Analyzer IN Cardio ER; Base Excess (BEa) -6.1 mEq/L (-2.0 to +3.0); CO2 Tension 44.6 mmHg (35.0-45.0); Calcium, Ionized (arterial) 0.84 mmol/L (1.12-1.30); Carboxyhemoglobin (COHb) 1.2 gm% (0.0-3.0); Hemoglobin (Hb) 8.3 g/dL (12.0-16.0); O2 Tension (PaO2), arterial 75.8 mmHg (80.0-100.0); Potassium - ABG Lab 5.81 mmol/L (3.70-5.30); pH, Arterial 7.28 (7.35-7.45)
[2020-11-10 11:01] LABS: Puncture Site RBA
[2020-11-10 11:31] LABS: ALT (SGPT) 22 U/L (8-55); AST (SGOT) 48 U/L (5-34); Albumin 3.2 g/dL (3.5-5.0); Alkaline Phosphatase 194 U/L (40-110); Anion Gap 28 mmol/L (10-20); CK (CPK) 149 U/L (29-168); Calc. Creatinine Clearance 0 mL/min (70-130); Calcium 7.2 mg/dL (7.8-10.44); Carbon Dioxide 21 mmol/L (22-29); Chloride 97 mmol/L (98-107); Glucose 75 mg/dL (70-105); Magnesium 3.6 mg/dL (1.6-2.6); Potassium 6.2 mmol/L (3.5-5.1); Protein, Total 7.2 g/dL (6.0-8.3); Sodium 140 mmol/L (136-145)
[2020-11-10 11:42] LABS: BUN (Urea Nitrogen) 165 mg/dL (7.0-18.7)
[2020-11-10 11:53] LABS: CKMB 4.3 ng/mL (0-6.6)
[2020-11-10 12:02] LABS: #Basophils 0.1 thou/uL (0.0-0.2); #Eosinphils 0.1 thou/uL (0.0-0.7); #Monocytes 0.4 thou/uL (0.11-0.59); #Neutrophils 3.1 thou/uL (1.40-6.50); %Basophils 1.5 % (0.0-1.0); %Eosinophils 3.1 % (0.0-10.0); %Monocytes 8.9 % (0.0-10.0); %Neutrophils 65.6 % (42.0-75.0); Hemoglobin 7.6 g/dL (12.0-16.0); Mean Corpuscular HGB CONC 33.2 g/dL (32.0-36.0); Mean Corpuscular Hemoglobin 31.4 pg (27.0-31.0); Mean Corpuscular Volume 94.5 fL (78.0-98.0); Mean Platelet Volume 9.1 fL (7.4-10.4); Platelet Count 100 thou/uL (130-400); RBC Distribution Width 15.8 % (11.5-14.5); Red Blood Cell (RBC) Count 2.41 mill/uL (4.20-5.40); White Blood Cell (WBC) Count 4.7 thou/uL (4.8-10.8)
[2020-11-10 14:48] LABS: SARS-CoV-2 NAA Rapid Test Not Detected (NotDetected)
[2020-11-10] MEDS ORDERED: HYDROcodone/Acetaminophen 5/325 mg Tablet PO PRN (14:53)
[2020-11-10] MEDS ORDERED: Lorazepam 0.5 MG TAB PO PRN (14:59)
[2020-11-10] MEDS ORDERED: HumaLOG 300 UNITS/3 ML VIAL SC PRN (15:04)
[2020-11-10] MEDS ORDERED: Dextrose 5% in Water 1,000 ML IV PRN (15:04)
[2020-11-10] MEDS ORDERED: Calcium Gluc 4.6 MEQ/10 ML (100 MG/ML) SLOW IVP ONE (15:05)
[2020-11-10] MEDS ORDERED: Dextrose 50% Abboject 50 ML SYRINGE ONE (15:07)
[2020-11-10 15:15] LABS: Actual Bicarbonate (HCO3a) 19.3 mEq/L (22-28); Base Excess (BEa) -7.2 mEq/L (-2.0 to +3.0); CO2 Tension 43.3 mmHg (35.0-45.0); Calcium, Ionized (arterial) 0.86 mmol/L (1.12-1.30); Carboxyhemoglobin (COHb) 1.1 gm% (0.0-3.0); Hemoglobin (Hb) 8.3 g/dL (12.0-16.0); O2 Tension (PaO2), arterial 122.1 mmHg (80.0-100.0); Puncture Site RBA; pH, Arterial 7.27 (7.35-7.45)
[2020-11-10] MEDS ORDERED: Dextrose 50% Abboject 50 ML SYRINGE SLOW IVP SCH (15:15)
[2020-11-10] MEDS ORDERED: Insulin Regular 300 UNITS/3 ML VIAL IVP SCH (15:15)
[2020-11-10] MEDS ORDERED: Furosemide 100 MG/10 ML VIAL SLOW IVP SCH (15:15)
[2020-11-10] MEDS ORDERED: Albuterol Sulfate 2.5 mg/3 ml Neb NEB SCH (15:15)
[2020-11-10 15:21] LABS: ALV-art Gradient 180.275 mmHg (0-20)
[2020-11-10] MEDS ORDERED: Calcium Gluconate 4.6 MEQ in Sodium Chloride 0.9% 100 ML IVPB SCH (15:30)
[2020-11-10 16:12] LABS: Lactic Acid 2.5 mmol/L (0.5-2.2)
[2020-11-10 18:24] LABS: Anion Gap 23 mmol/L (10-20); Calc. Creatinine Clearance 13 mL/min (70-130); Calcium 7.3 mg/dL (7.8-10.44); Carbon Dioxide 23 mmol/L (22-29); Chloride 97 mmol/L (98-107); Glucose 82 mg/dL (70-105); Potassium 5.1 mmol/L (3.5-5.1); Sodium 138 mmol/L (136-145)
[2020-11-10 18:36] LABS: BUN (Urea Nitrogen) 136 mg/dL (7.0-18.7)
[2020-11-10] MEDS: Famotidine 20 MG TAB PO SCH (23:43)
[2020-11-10] MEDS ORDERED: Lactulose 10 GM/15 ML Oral Solution PR SCH (23:45)
[2020-11-11] MEDS ORDERED: Dextrose 50% Abboject 50 ML SYRINGE IVP PRN (02:45)
[2020-11-11] MEDS: Dextrose 50% Abboject 50 ML SYRINGE SLOW IVP PRN (03:02)
[2020-11-11 03:53] LABS: #Eosinphils 0.1 thou/uL (0.0-0.7); #Lymphocytes 0.6 thou/uL (1.20-3.40); #Monocytes 0.1 thou/uL (0.11-0.59); #Neutrophils 3.6 thou/uL (1.40-6.50); %Eosinophils 1.2 % (0.0-10.0); %Monocytes 1.9 % (0.0-10.0); %Neutrophils 83.9 % (42.0-75.0); Hemoglobin 7.2 g/dL (12.0-16.0); Mean Corpuscular HGB CONC 32.9 g/dL (32.0-36.0); Mean Corpuscular Volume 94.1 fL (78.0-98.0); Mean Platelet Volume 8.4 fL (7.4-10.4); Platelet Count 86 thou/uL (130-400); RBC Distribution Width 15.7 % (11.5-14.5); Red Blood Cell (RBC) Count 2.33 mill/uL (4.20-5.40); White Blood Cell (WBC) Count 4.3 thou/uL (4.8-10.8)
[2020-11-11 03:56] LABS: ALT (SGPT) 19 U/L (8-55); AST (SGOT) 43 U/L (5-34); Albumin 2.8 g/dL (3.5-5.0); Alkaline Phosphatase 182 U/L (40-110); Anion Gap 22 mmol/L (10-20); BUN (Urea Nitrogen) 64 mg/dL (7.0-18.7); Bilirubin, Total 2.4 mg/dL (0.2-1.2); Calc. Creatinine Clearance 21 mL/min (70-130); Calcium 7.8 mg/dL (7.8-10.44); Carbon Dioxide 23 mmol/L (22-29); Chloride 98 mmol/L (98-107); Globulin 3.6 g/dL (2.4-3.5); Glucose 150 mg/dL (70-105); Protein, Total 6.4 g/dL (6.0-8.3); Sodium 139 mmol/L (136-145)
[2020-11-11 07:08] LABS: Phosphorus 6.9 mg/dL (2.3-4.7)
[2020-11-11 07:11] LABS: Iron 87 ug/dL (50-170); Iron Binding Capacity, Total 218 mcg/dL (265-497)
[2020-11-11 10:31] LABS: Actual Bicarbonate (HCO3a) 26.8 mEq/L (22-28); Base Excess (BEa) 0.8 mEq/L (-2.0 to +3.0); CO2 Tension 50.5 mmHg (35.0-45.0); Calcium, Ionized (arterial) 0.98 mmol/L (1.12-1.30); Carboxyhemoglobin (COHb) 0.9 gm% (0.0-3.0); O2 Tension (PaO2), arterial 135.9 mmHg (80.0-100.0); Potassium - ABG Lab 4.12 mmol/L (3.70-5.30); pH, Arterial 7.34 (7.35-7.45)
[2020-11-11 10:33] LABS: Puncture Site RRA
[2020-11-11 10:35] LABS: ALV-art Gradient 157.475 mmHg (0-20)
[2020-11-11] MEDS: Lactulose 10 GM/15 ML Oral Solution PR SCH ×3 (13:34→22:25)
[2020-11-11] MEDS ORDERED: Vancomycin HCl 1.25 GM in Sodium Chloride 0.9% 250 ML 250 ML IVPB SCH (16:15)
[2020-11-11] MEDS ORDERED: Vancomycin 1.5 GRAM/300 ML BAG 1.5 GM in Premix Bag 1 BAG IVPB SCH (16:15)
[2020-11-11] MEDS ORDERED: HOLD VANCOMYCIN FOR LEVEL >20 FS SCH (16:15)
[2020-11-11] MEDS ORDERED: Vancomycin 1 GM in Premix Bag 1 BAG IVPB SCH ×2 (16:15→21:00)
[2020-11-11] MEDS ORDERED: Vancomycin HCl 750 MG in Sodium Chloride 0.9% 250 ML 250 ML IVPB SCH (16:15)
[2020-11-11] MEDS: Sevelamer Carbonate 800 MG TAB PO SCH ×2 (17:05→17:06)
[2020-11-11] MEDS: EPOETIN ALFA-EPBX (ESRD) 10,000 UNIT/ML VIAL SC SCH (17:05)
[2020-11-11] MEDS ORDERED: Cefepime 1 GM in Sodium Chloride 0.9% 100 ML IVPB SCH (18:00)
[2020-11-11] MEDS: Famotidine 20 MG TAB PO SCH (20:26)
[2020-11-12 04:28] LABS: ALT (SGPT) 21 U/L (8-55); AST (SGOT) 48 U/L (5-34); Alkaline Phosphatase 181 U/L (40-110); Anion Gap 22 mmol/L (10-20); BUN (Urea Nitrogen) 78 mg/dL (7.0-18.7); Bilirubin, Total 2.4 mg/dL (0.2-1.2); Calc. Creatinine Clearance 16 mL/min (70-130); Calcium 7.9 mg/dL (7.8-10.44); Carbon Dioxide 22 mmol/L (22-29); Chloride 99 mmol/L (98-107); Globulin 3.8 g/dL (2.4-3.5); Glucose 109 mg/dL (70-105); Magnesium 2.6 mg/dL (1.6-2.6); Phosphorus 8.7 mg/dL (2.3-4.7); Potassium 4.2 mmol/L (3.5-5.1); Protein, Total 6.8 g/dL (6.0-8.3); Sodium 139 mmol/L (136-145)
[2020-11-12 04:41] LABS: #Eosinphils 0.1 thou/uL (0.0-0.7); #Lymphocytes 0.8 thou/uL (1.20-3.40); #Monocytes 0.4 thou/uL (0.11-0.59); #Neutrophils 5.1 thou/uL (1.40-6.50); %Basophils 0.7 % (0.0-1.0); %Eosinophils 1.3 % (0.0-10.0); %Lymphocytes 11.9 % (21.0-51.0); %Monocytes 6.8 % (0.0-10.0); %Neutrophils 79.3 % (42.0-75.0); Hemoglobin 7.5 g/dL (12.0-16.0); Mean Corpuscular HGB CONC 32.7 g/dL (32.0-36.0); Mean Corpuscular Hemoglobin 31.1 pg (27.0-31.0); Mean Corpuscular Volume 95.1 fL (78.0-98.0); Mean Platelet Volume 7.9 fL (7.4-10.4); Platelet Count 78 thou/uL (130-400); RBC Distribution Width 15.9 % (11.5-14.5); Red Blood Cell (RBC) Count 2.42 mill/uL (4.20-5.40); White Blood Cell (WBC) Count 6.4 thou/uL (4.8-10.8)
[2020-11-12] MEDS: Ergocalciferol 1.25 MG(50,000 UNITS) CAP PO SCH (09:12)
[2020-11-12] MEDS: Lactulose 10 GM/15 ML Oral Solution PR SCH ×2 (09:12→17:02)
[2020-11-12] MEDS: Sevelamer Carbonate 800 MG TAB PO SCH ×3 (09:12→17:02)
[2020-11-12 10:27] LABS: Vancomycin, Random 19.5 ug/mL (See Comment)
[2020-11-12] MEDS: Vancomycin HCl 500 MG in Sodium Chloride 0.9% 100 ML IVPB SCH (13:14)
[2020-11-12] MEDS: Cefepime 0.5 GM, Admixture Fee 1 EACH in Sodium Chloride 0.9% 100 ML IVPB SCH (19:21)
[2020-11-12] MEDS: Famotidine 20 MG TAB PO SCH (21:21)
[2020-11-13] MEDS: Lactulose 10 GM/15 ML Oral Solution PR SCH ×4 (02:08→23:08)
[2020-11-13 04:23] LABS: #Basophils 0.1 thou/uL (0.0-0.2); #Eosinphils 0.2 thou/uL (0.0-0.7); #Lymphocytes 0.8 thou/uL (1.20-3.40); #Monocytes 0.5 thou/uL (0.11-0.59); #Neutrophils 3.3 thou/uL (1.40-6.50); %Basophils 1.6 % (0.0-1.0); %Eosinophils 3.9 % (0.0-10.0); %Lymphocytes 16.2 % (21.0-51.0); %Neutrophils 68.3 % (42.0-75.0); Hemoglobin 7.1 g/dL (12.0-16.0); Mean Corpuscular HGB CONC 31.3 g/dL (32.0-36.0); Mean Corpuscular Hemoglobin 29.9 pg (27.0-31.0); Mean Corpuscular Volume 95.4 fL (78.0-98.0); Mean Platelet Volume 7.3 fL (7.4-10.4); Platelet Count 65 thou/uL (130-400); RBC Distribution Width 16.1 % (11.5-14.5); Red Blood Cell (RBC) Count 2.39 mill/uL (4.20-5.40); White Blood Cell (WBC) Count 4.9 thou/uL (4.8-10.8)
[2020-11-13] MEDS: Sevelamer Carbonate 800 MG TAB PO SCH ×3 (10:03→17:22)
[2020-11-13 10:06] LABS: Vancomycin, Random 24.5 ug/mL (See Comment)
[2020-11-13 12:44] LABS: Albumin 2.7 g/dL (3.5-5.0); Anion Gap 18 mmol/L (10-20); BUN (Urea Nitrogen) 45 mg/dL (7.0-18.7); BUN/Creatinine Ratio 9.07; Calc. Creatinine Clearance 21 mL/min (70-130); Calcium 7.5 mg/dL (7.8-10.44); Carbon Dioxide 27 mmol/L (22-29); Chloride 105 mmol/L (98-107); Glucose 108 mg/dL (70-105); Phosphorus 5.9 mg/dL (2.3-4.7); Potassium 3.9 mmol/L (3.5-5.1); Sodium 146 mmol/L (136-145)
[2020-11-13 17:48] LABS: Hemoglobin 4.6 g/dL (12.0-16.0); Mean Corpuscular HGB CONC 32.1 g/dL (32.0-36.0); Mean Corpuscular Volume 96.6 fL (78.0-98.0); Mean Platelet Volume 7.6 fL (7.4-10.4); Platelet Count 69 thou/uL (130-400); RBC Distribution Width 16.2 % (11.5-14.5); Red Blood Cell (RBC) Count 1.49 mill/uL (4.20-5.40); White Blood Cell (WBC) Count 5.3 thou/uL (4.8-10.8)
[2020-11-13 17:50] LABS: INR-International Normal Ratio 2.4; Prothrombin Time 26.4 sec (12.0-14.7)
[2020-11-13] MEDS ORDERED: Phytonadione 10 MG in Sodium Chloride 0.9% 50 ML IVPB SCH (18:00)
[2020-11-13] MEDS ORDERED: Octreotide Acetate 1,250 MCG in Sodium Chloride 0.9% 250 ML 250 ML IVPB SCH (18:15)
[2020-11-13] MEDS: Albumin 25% 25 GM/100 ML BOT IVPB SCH (18:47)
[2020-11-13] MEDS ORDERED: Sodium Chloride 0.9% 10 ML ONE (20:04)
[2020-11-13] MEDS ORDERED: Sodium Chloride 0.9% 20 ML ONE (20:04)
[2020-11-13] MEDS ORDERED: Midazolam HCl 2 mg/2 ml Vial ONE (20:12)
[2020-11-13] MEDS ORDERED: Succinylcholine 200 MG/10 ml SYRINGE FS ONE (20:28)
[2020-11-13] MEDS ORDERED: EPINEPHrine 1 MG/10 ML Abboject SYRINGE ONE (20:28)
[2020-11-13] MEDS ORDERED: Rocuronium Bromide 10 MG/ML (10ML VIAL) ONE (20:28)
[2020-11-13] MEDS ORDERED: PHENYLEPHRINE-NS 100 MCG/ML 10 ML SYRINGE ONE (20:28)
[2020-11-13] MEDS ORDERED: Fentanyl CADD 100 ML ONE (21:49)
[2020-11-13] MEDS: Pantoprazole 80 MG in Sodium Chloride 0.9% 100 ML IVPB SCH (21:54)
[2020-11-13] MEDS: Pantoprazole 40 MG VIAL IVP SCH (21:54)
[2020-11-13 21:59] LABS: Hemoglobin 7.8 g/dL (12.0-16.0); Platelet Count 63 thou/uL (130-400)
[2020-11-13] MEDS ORDERED: Propofol BOLUS 1,000 MG/100 ML VIAL IV PRN (22:00)
[2020-11-13] MEDS ORDERED: Fentanyl BOLUS 250 ML IVPB PRN (22:00)
[2020-11-13] MEDS ORDERED: Propofol 1,000 MG/100 ML VIAL IV PRN (22:00)
[2020-11-13] MEDS ORDERED: DISCONTINUE PREVIOUS NARCOTIC PAIN MEDICATIONS AND BENZODIAZEPINES FS SCH (22:00)
[2020-11-13] MEDS ORDERED: Fentanyl CADD 100 ML IV SCH (22:00)
[2020-11-13 22:07] LABS: Actual Bicarbonate (HCO3a) 23.3 mEq/L (22-28); Base Excess (BEa) -0.9 mEq/L (-2.0 to +3.0); CO2 Tension 36.4 mmHg (35.0-45.0); Hemoglobin (Hb) 7.4 g/dL (12.0-16.0); O2 Tension (PaO2), arterial 148.7 mmHg (80.0-100.0); Potassium - ABG Lab 4.24 mmol/L (3.70-5.30); pH, Arterial 7.43 (7.35-7.45)
[2020-11-13 22:29] LABS: Puncture Site LBA
[2020-11-13] MEDS: Famotidine 20 MG TAB PO SCH (23:08)
[2020-11-13] MEDS: Cefepime 0.5 GM, Admixture Fee 1 EACH in Sodium Chloride 0.9% 100 ML IVPB SCH (23:08)
[2020-11-14] MEDS: Albumin 25% 25 GM/100 ML BOT IVPB SCH ×3 (01:23→13:05)
[2020-11-14] MEDS ORDERED: Norepinephrine 8 MG/0.9% NS 250 ML ONE (02:16)
[2020-11-14 02:39] LABS: #Basophils 0.1 thou/uL (0.0-0.2); #Eosinphils 0.2 thou/uL (0.0-0.7); #Lymphocytes 1.9 thou/uL (1.20-3.40); #Monocytes 0.6 thou/uL (0.11-0.59); #Neutrophils 3.8 thou/uL (1.40-6.50); %Basophils 1.7 % (0.0-1.0); %Eosinophils 3.2 % (0.0-10.0); %Lymphocytes 28.9 % (21.0-51.0); %Monocytes 8.6 % (0.0-10.0); %Neutrophils 57.5 % (42.0-75.0); Hemoglobin 5.9 g/dL (12.0-16.0); Mean Corpuscular HGB CONC 33.4 g/dL (32.0-36.0); Mean Corpuscular Hemoglobin 30.9 pg (27.0-31.0); Mean Corpuscular Volume 92.4 fL (78.0-98.0); Mean Platelet Volume 7.4 fL (7.4-10.4); Platelet Count 51 thou/uL (130-400); RBC Distribution Width 15.1 % (11.5-14.5); Red Blood Cell (RBC) Count 1.92 mill/uL (4.20-5.40); White Blood Cell (WBC) Count 6.6 thou/uL (4.8-10.8)
[2020-11-14 02:44] LABS: INR-International Normal Ratio 2.6; Prothrombin Time 28.7 sec (12.0-14.7)
[2020-11-14 03:10] LABS: ALT (SGPT) 11 U/L (8-55); AST (SGOT) 24 U/L (5-34); Albumin 2.2 g/dL (3.5-5.0); Alkaline Phosphatase 84 U/L (40-110); Anion Gap 18 mmol/L (10-20); BUN (Urea Nitrogen) 69 mg/dL (7.0-18.7); BUN/Creatinine Ratio 12.68; Bilirubin, Total 2.9 mg/dL (0.2-1.2); Calc. Creatinine Clearance 18 mL/min (70-130); Calcium 6.9 mg/dL (7.8-10.44); Carbon Dioxide 24 mmol/L (22-29); Chloride 110 mmol/L (98-107); Globulin 1.8 g/dL (2.4-3.5); Glucose 111 mg/dL (70-105); Phosphorus 5.9 mg/dL (2.3-4.7); Potassium 4.2 mmol/L (3.5-5.1); Sodium 148 mmol/L (136-145)
[2020-11-14] MEDS: Sevelamer Carbonate 800 MG TAB PO SCH ×3 (08:00→17:00)
[2020-11-14] MEDS ORDERED: Albumin 25% 25 GM/100 ML BOT IVPB SCH ×2 (08:15→23:59)
[2020-11-14] MEDS: Pantoprazole 40 MG VIAL IVP SCH ×2 (09:01→20:30)
[2020-11-14 09:11] LABS: #Basophils 0.1 thou/uL (0.0-0.2); #Eosinphils 0.4 thou/uL (0.0-0.7); #Lymphocytes 2.5 thou/uL (1.20-3.40); #Monocytes 0.7 thou/uL (0.11-0.59); #Neutrophils 4.5 thou/uL (1.40-6.50); %Basophils 1.7 % (0.0-1.0); %Eosinophils 4.7 % (0.0-10.0); %Lymphocytes 30.5 % (21.0-51.0); %Monocytes 8.4 % (0.0-10.0); %Neutrophils 54.7 % (42.0-75.0); Hemoglobin 6.8 g/dL (12.0-16.0); Mean Corpuscular HGB CONC 32.7 g/dL (32.0-36.0); Mean Corpuscular Volume 91.8 fL (78.0-98.0); Mean Platelet Volume 7.7 fL (7.4-10.4); Platelet Count 59 thou/uL (130-400); RBC Distribution Width 15.5 % (11.5-14.5); Red Blood Cell (RBC) Count 2.25 mill/uL (4.20-5.40); Vancomycin, Random 18.1 ug/mL (See Comment); White Blood Cell (WBC) Count 8.2 thou/uL (4.8-10.8)
[2020-11-14] MEDS ORDERED: Midazolam HCl 2 mg/2 ml Vial SLOW IVP PRN ×2 (09:24→09:25)
[2020-11-14] MEDS ORDERED: Midazolam HCl 2 mg/2 ml Vial ONE (09:25)
[2020-11-14] MEDS: Lactulose 10 GM/15 ML Oral Solution PR SCH ×3 (09:59→20:30)
[2020-11-14] MEDS: Fentanyl CADD 100 ML IV SCH (13:49)
[2020-11-14] MEDS: Lorazepam 2 MG/ML VIAL SLOW IVP PRN ×3 (14:54→22:40)
[2020-11-14] MEDS: Vancomycin HCl 500 MG in Sodium Chloride 0.9% 100 ML IVPB SCH (18:29)
[2020-11-14] MEDS: Cefepime 0.5 GM, Admixture Fee 1 EACH in Sodium Chloride 0.9% 100 ML IVPB SCH (18:41)
[2020-11-14] MEDS: Pantoprazole 80 MG in Sodium Chloride 0.9% 100 ML IVPB SCH (18:41)
[2020-11-14] MEDS: Famotidine 20 MG TAB PO SCH (20:30)
[2020-11-14 22:06] LABS: Hemoglobin 7.3 g/dL (12.0-16.0)
[2020-11-14] MEDS: Norepinephrine 8 MG/0.9% NS 250 ML IVPB SCH (22:08)
[2020-11-15] MEDS ORDERED: Acetaminophen 650 MG Suppository PR PRN (00:11)
[2020-11-15 00:40] LABS: #Basophils 0.1 thou/uL (0.0-0.2); #Eosinphils 0.8 thou/uL (0.0-0.7); #Lymphocytes 2.6 thou/uL (1.20-3.40); #Neutrophils 9.5 thou/uL (1.40-6.50); %Eosinophils 5.4 % (0.0-10.0); %Lymphocytes 18.8 % (21.0-51.0); %Monocytes 7.2 % (0.0-10.0); %Neutrophils 67.6 % (42.0-75.0); Hemoglobin 7.3 g/dL (12.0-16.0); Mean Corpuscular HGB CONC 33.6 g/dL (32.0-36.0); Mean Corpuscular Hemoglobin 30.3 pg (27.0-31.0); Mean Corpuscular Volume 90.2 fL (78.0-98.0); Mean Platelet Volume 7.6 fL (7.4-10.4); Platelet Count 39 thou/uL (130-400); RBC Distribution Width 15.5 % (11.5-14.5); Red Blood Cell (RBC) Count 2.39 mill/uL (4.20-5.40)
[2020-11-15] MEDS ORDERED: MEROPENEM 1 GM/50 ML 1 GM in Premix Bag 1 BAG IVPB SCH (01:30)
[2020-11-15 02:01] LABS: #Basophils 0.1 thou/uL (0.0-0.2); #Eosinphils 0.9 thou/uL (0.0-0.7); #Lymphocytes 2.9 thou/uL (1.20-3.40); #Neutrophils 9.3 thou/uL (1.40-6.50); %Basophils 0.8 % (0.0-1.0); %Eosinophils 6.5 % (0.0-10.0); %Lymphocytes 20.5 % (21.0-51.0); %Monocytes 7.1 % (0.0-10.0); %Neutrophils 65.1 % (42.0-75.0); Hemoglobin 7.3 g/dL (12.0-16.0); Mean Corpuscular HGB CONC 34.6 g/dL (32.0-36.0); Mean Corpuscular Hemoglobin 31.2 pg (27.0-31.0); Mean Corpuscular Volume 90.3 fL (78.0-98.0); Mean Platelet Volume 7.7 fL (7.4-10.4); Platelet Count 41 thou/uL (130-400); RBC Distribution Width 15.9 % (11.5-14.5); Red Blood Cell (RBC) Count 2.33 mill/uL (4.20-5.40); White Blood Cell (WBC) Count 14.2 thou/uL (4.8-10.8)
[2020-11-15] MEDS ORDERED: Fentanyl CADD 100 ML ONE (02:03)
[2020-11-15 02:09] LABS: Albumin 3.6 g/dL (3.5-5.0)
[2020-11-15 02:10] LABS: Chloride 104 mmol/L (98-107); Potassium 3.7 mmol/L (3.5-5.1); Sodium 143 mmol/L (136-145)
[2020-11-15 02:12] LABS: Calcium 8.8 mg/dL (7.8-10.44); Glucose 96 mg/dL (70-105)
[2020-11-15 02:13] LABS: Anion Gap 16 mmol/L (10-20); Carbon Dioxide 27 mmol/L (22-29)
[2020-11-15 02:14] LABS: Bilirubin, Total 4.7 mg/dL (0.2-1.2)
[2020-11-15 02:15] LABS: Alkaline Phosphatase 96 U/L (40-110); Calc. Creatinine Clearance 31 mL/min (70-130); Protein, Total 5.6 g/dL (6.0-8.3)
[2020-11-15 02:16] LABS: BUN (Urea Nitrogen) 34 mg/dL (7.0-18.7)
[2020-11-15 02:17] LABS: AST (SGOT) 25 U/L (5-34)
[2020-11-15 02:18] LABS: ALT (SGPT) 11 U/L (8-55)
[2020-11-15] MEDS: Norepinephrine 8 MG/0.9% NS 250 ML IVPB SCH ×2 (03:30→20:28)
[2020-11-15 07:10] LABS: Actual Bicarbonate (HCO3a) 25.2 mEq/L (22-28); Base Excess (BEa) 0.9 mEq/L (-2.0 to +3.0); Calcium, Ionized (arterial) 1.11 mmol/L (1.12-1.30); Carboxyhemoglobin (COHb) 2.3 gm% (0.0-3.0); Hemoglobin (Hb) 7.1 g/dL (12.0-16.0); pH, Arterial 7.43 (7.35-7.45)
[2020-11-15 07:14] LABS: Puncture Site RRA
[2020-11-15] MEDS: Sevelamer Carbonate 800 MG TAB PO SCH ×3 (08:26→17:48)
[2020-11-15 08:36] LABS: Hemoglobin 6.7 g/dL (12.0-16.0); Platelet Count 30 thou/uL (130-400)
[2020-11-15 08:39] LABS: Prothrombin Time 22.8 sec (12.0-14.7)
[2020-11-15 08:44] LABS: Vancomycin, Random 19.2 ug/mL (See Comment)
[2020-11-15] MEDS: Lactulose 10 GM/15 ML Oral Solution PR SCH ×3 (09:26→20:15)
[2020-11-15] MEDS: Pantoprazole 40 MG VIAL IVP SCH ×2 (09:27→20:15)
[2020-11-15] MEDS: Phytonadione 5 MG TAB PO SCH (13:36)
[2020-11-15] MEDS: Meropenem 500 MG in Sodium Chloride 0.9% 100 ML IVPB SCH (14:10)
[2020-11-15] MEDS: Vancomycin HCl 500 MG in Sodium Chloride 0.9% 100 ML IVPB SCH (15:36)
[2020-11-15] MEDS: Fentanyl CADD 100 ML IV SCH (16:25)
[2020-11-15] MEDS: Pantoprazole 80 MG in Sodium Chloride 0.9% 100 ML IVPB SCH (16:31)
[2020-11-15] MEDS: Lorazepam 2 MG/ML VIAL SLOW IVP PRN (17:44)
[2020-11-15] MEDS: Famotidine 20 MG TAB PO SCH (20:15)
[2020-11-16] MEDS: Meropenem 500 MG in Sodium Chloride 0.9% 100 ML IVPB SCH ×2 (01:54→13:07)
[2020-11-16] MEDS: Pantoprazole 80 MG in Sodium Chloride 0.9% 100 ML IVPB SCH ×2 (01:55→13:06)
[2020-11-16 03:40] LABS: #Basophils 0.1 thou/uL (0.0-0.2); #Eosinphils 0.2 thou/uL (0.0-0.7); #Lymphocytes 1.1 thou/uL (1.20-3.40); #Monocytes 0.4 thou/uL (0.11-0.59); #Neutrophils 4.2 thou/uL (1.40-6.50); %Basophils 1.1 % (0.0-1.0); %Eosinophils 3.7 % (0.0-10.0); %Lymphocytes 18.7 % (21.0-51.0); %Monocytes 7.3 % (0.0-10.0); %Neutrophils 69.2 % (42.0-75.0); Hemoglobin 7.4 g/dL (12.0-16.0); Mean Corpuscular HGB CONC 34.6 g/dL (32.0-36.0); Mean Corpuscular Hemoglobin 31.6 pg (27.0-31.0); Mean Corpuscular Volume 91.3 fL (78.0-98.0); Mean Platelet Volume 8.2 fL (7.4-10.4); Platelet Count 32 thou/uL (130-400); RBC Distribution Width 15.7 % (11.5-14.5); Red Blood Cell (RBC) Count 2.33 mill/uL (4.20-5.40)
[2020-11-16 03:55] LABS: Anion Gap 18 mmol/L (10-20); BUN (Urea Nitrogen) 46 mg/dL (7.0-18.7); Calc. Creatinine Clearance 25 mL/min (70-130); Calcium 8.1 mg/dL (7.8-10.44); Carbon Dioxide 22 mmol/L (22-29); Chloride 107 mmol/L (98-107); Glucose 99 mg/dL (70-105); Potassium 4.1 mmol/L (3.5-5.1); Sodium 143 mmol/L (136-145)
[2020-11-16] MEDS ORDERED: Fentanyl CADD 100 ML ONE ×2 (06:01→23:13)
[2020-11-16 07:00] LABS: Actual Bicarbonate (HCO3a) 23.2 mEq/L (22-28); Base Excess (BEa) -1.5 mEq/L (-2.0 to +3.0); CO2 Tension 38.9 mmHg (35.0-45.0); Calcium, Ionized (arterial) 1.06 mmol/L (1.12-1.30); Hemoglobin (Hb) 7.8 g/dL (12.0-16.0); O2 Tension (PaO2), arterial 97.3 mmHg (80.0-100.0); Potassium - ABG Lab 4.15 mmol/L (3.70-5.30); pH, Arterial 7.39 (7.35-7.45)
[2020-11-16 07:01] LABS: ALV-art Gradient 139.275 mmHg (0-20); Puncture Site RRA
[2020-11-16 08:49] LABS: Vancomycin, Random 24.9 ug/mL (See Comment)
[2020-11-16] MEDS: Sevelamer Carbonate 800 MG TAB PO SCH ×3 (09:33→16:32)
[2020-11-16] MEDS: Norepinephrine 8 MG/0.9% NS 250 ML IVPB SCH (09:33)
[2020-11-16] MEDS: Lactulose 10 GM/15 ML Oral Solution PR SCH ×3 (09:33→20:59)
[2020-11-16] MEDS: Pantoprazole 40 MG VIAL IVP SCH ×2 (09:36→20:59)
[2020-11-16] MEDS: Lorazepam 2 MG/ML VIAL SLOW IVP PRN ×2 (10:16→14:33)
[2020-11-16] MEDS: Phytonadione 5 MG TAB PO SCH (11:28)
[2020-11-16] MEDS ORDERED: Phytonadione 10 MG in Sodium Chloride 0.9% 50 ML IVPB SCH (13:30)
[2020-11-16] MEDS: Dextrose 50% Abboject 50 ML SYRINGE SLOW IVP PRN (21:33)
[2020-11-17] MEDS: Meropenem 500 MG in Sodium Chloride 0.9% 100 ML IVPB SCH ×2 (01:39→14:42)
[2020-11-17] MEDS: Norepinephrine 8 MG/0.9% NS 250 ML IVPB SCH (01:47)
[2020-11-17 04:49] LABS: #Eosinphils 0.2 thou/uL (0.0-0.7); #Lymphocytes 0.8 thou/uL (1.20-3.40); #Monocytes 0.4 thou/uL (0.11-0.59); #Neutrophils 3.6 thou/uL (1.40-6.50); %Basophils 0.8 % (0.0-1.0); %Eosinophils 4.5 % (0.0-10.0); %Lymphocytes 15.6 % (21.0-51.0); %Monocytes 7.1 % (0.0-10.0); %Neutrophils 72.1 % (42.0-75.0); Hemoglobin 8.8 g/dL (12.0-16.0); INR-International Normal Ratio 1.5; Mean Corpuscular Hemoglobin 30.3 pg (27.0-31.0); Mean Corpuscular Volume 91.8 fL (78.0-98.0); Mean Platelet Volume 8.7 fL (7.4-10.4); Platelet Count 37 thou/uL (130-400); Prothrombin Time 18.4 sec (12.0-14.7); RBC Distribution Width 15.6 % (11.5-14.5); Red Blood Cell (RBC) Count 2.89 mill/uL (4.20-5.40); White Blood Cell (WBC) Count 4.9 thou/uL (4.8-10.8)
[2020-11-17 04:50] LABS: PTT 41.9 sec (22.9-36.1)
[2020-11-17 05:08] LABS: Anion Gap 18 mmol/L (10-20); BUN (Urea Nitrogen) 59 mg/dL (7.0-18.7); Calc. Creatinine Clearance 20 mL/min (70-130); Calcium 7.8 mg/dL (7.8-10.44); Carbon Dioxide 22 mmol/L (22-29); Chloride 107 mmol/L (98-107); Glucose 104 mg/dL (70-105); Potassium 4.3 mmol/L (3.5-5.1); Sodium 143 mmol/L (136-145)
[2020-11-17 07:13] LABS: Actual Bicarbonate (HCO3a) 20.8 mEq/L (22-28); Base Excess (BEa) -3.9 mEq/L (-2.0 to +3.0); Calcium, Ionized (arterial) 1.02 mmol/L (1.12-1.30); Carboxyhemoglobin (COHb) 1.3 gm% (0.0-3.0); Hemoglobin (Hb) 9.7 g/dL (12.0-16.0); O2 Tension (PaO2), arterial 93.2 mmHg (80.0-100.0); Potassium - ABG Lab 4.16 mmol/L (3.70-5.30); pH, Arterial 7.38 (7.35-7.45)
[2020-11-17 07:14] LABS: Puncture Site RRA
[2020-11-17] MEDS: Sevelamer Carbonate 800 MG TAB PO SCH ×3 (08:10→19:41)
[2020-11-17 09:04] LABS: Vancomycin, Random 22.6 ug/mL (See Comment)
[2020-11-17] MEDS: Lactulose 10 GM/15 ML Oral Solution PR SCH ×3 (11:08→20:56)
[2020-11-17] MEDS: Pantoprazole 40 MG VIAL IVP SCH ×2 (11:13→20:56)
[2020-11-17] MEDS: Dextrose 50% Abboject 50 ML SYRINGE SLOW IVP PRN ×2 (16:16→19:19)
[2020-11-18] MEDS: Morphine 2 MG/ML VIAL SLOW IVP PRN ×2 (00:55→04:45)
[2020-11-18] MEDS: Meropenem 500 MG in Sodium Chloride 0.9% 100 ML IVPB SCH ×2 (02:31→15:04)
[2020-11-18] MEDS: Norepinephrine 8 MG/0.9% NS 250 ML IVPB SCH ×2 (03:29→21:29)
[2020-11-18 04:39] LABS: #Eosinphils 0.3 thou/uL (0.0-0.7); #Lymphocytes 0.9 thou/uL (1.20-3.40); #Monocytes 0.6 thou/uL (0.11-0.59); #Neutrophils 3.6 thou/uL (1.40-6.50); %Basophils 0.9 % (0.0-1.0); %Eosinophils 5.1 % (0.0-10.0); Hemoglobin 8.7 g/dL (12.0-16.0); Mean Corpuscular HGB CONC 33.2 g/dL (32.0-36.0); Mean Corpuscular Hemoglobin 30.9 pg (27.0-31.0); Mean Corpuscular Volume 92.9 fL (78.0-98.0); Mean Platelet Volume 8.3 fL (7.4-10.4); Platelet Count 31 thou/uL (130-400); RBC Distribution Width 15.8 % (11.5-14.5); Red Blood Cell (RBC) Count 2.83 mill/uL (4.20-5.40); White Blood Cell (WBC) Count 5.3 thou/uL (4.8-10.8)
[2020-11-18 04:57] LABS: Anion Gap 15 mmol/L (10-20); BUN (Urea Nitrogen) 27 mg/dL (7.0-18.7); Calc. Creatinine Clearance 33 mL/min (70-130); Calcium 7.9 mg/dL (7.8-10.44); Carbon Dioxide 27 mmol/L (22-29); Chloride 103 mmol/L (98-107); Glucose 97 mg/dL (70-105); Potassium 3.6 mmol/L (3.5-5.1); Sodium 141 mmol/L (136-145)
[2020-11-18] MEDS ORDERED: DC Sedation Protocol FS ONE (08:07)
[2020-11-18] MEDS: Sevelamer Carbonate 800 MG TAB PO SCH ×3 (08:10→16:31)
[2020-11-18] MEDS: Pantoprazole 40 MG VIAL IVP SCH ×2 (08:30→20:38)
[2020-11-18] MEDS: EPOETIN ALFA-EPBX (ESRD) 10,000 UNIT/ML VIAL SC SCH (11:59)
[2020-11-18] MEDS: Dextrose 50% Abboject 50 ML SYRINGE SLOW IVP PRN (19:35)
[2020-11-18] MEDS ORDERED: Norepinephrine 8 MG/0.9% NS 250 ML IVPB SCH (21:30)
[2020-11-18 22:19] LABS: #Eosinphils 0.2 thou/uL (0.0-0.7); #Lymphocytes 0.9 thou/uL (1.20-3.40); #Monocytes 0.4 thou/uL (0.11-0.59); #Neutrophils 1.7 thou/uL (1.40-6.50); %Basophils 1.1 % (0.0-1.0); %Eosinophils 5.4 % (0.0-10.0); %Lymphocytes 27.1 % (21.0-51.0); %Monocytes 13.6 % (0.0-10.0); %Neutrophils 52.8 % (42.0-75.0); Hemoglobin 7.3 g/dL (12.0-16.0); Mean Corpuscular HGB CONC 32.1 g/dL (32.0-36.0); Mean Corpuscular Hemoglobin 30.3 pg (27.0-31.0); Mean Corpuscular Volume 94.7 fL (78.0-98.0); Mean Platelet Volume 8.8 fL (7.4-10.4); Platelet Count 31 thou/uL (130-400); RBC Distribution Width 15.9 % (11.5-14.5); Red Blood Cell (RBC) Count 2.42 mill/uL (4.20-5.40); White Blood Cell (WBC) Count 3.2 thou/uL (4.8-10.8)
[2020-11-18] MEDS: Dextrose 5% in Water 1,000 ML IV SCH (23:40)
[2020-11-19] MEDS: Meropenem 500 MG in Sodium Chloride 0.9% 100 ML IVPB SCH ×2 (02:17→13:16)
[2020-11-19 04:08] LABS: #Basophils 0.1 thou/uL (0.0-0.2); #Eosinphils 0.3 thou/uL (0.0-0.7); #Lymphocytes 1.3 thou/uL (1.20-3.40); #Monocytes 0.8 thou/uL (0.11-0.59); %Basophils 1.2 % (0.0-1.0); %Eosinophils 4.1 % (0.0-10.0); %Lymphocytes 19.9 % (21.0-51.0); %Monocytes 11.7 % (0.0-10.0); %Neutrophils 63.1 % (42.0-75.0); Hemoglobin 8.6 g/dL (12.0-16.0); Mean Corpuscular HGB CONC 32.6 g/dL (32.0-36.0); Mean Corpuscular Hemoglobin 30.8 pg (27.0-31.0); Mean Corpuscular Volume 94.5 fL (78.0-98.0); Mean Platelet Volume 8.7 fL (7.4-10.4); Platelet Count 48 thou/uL (130-400); White Blood Cell (WBC) Count 6.4 thou/uL (4.8-10.8)
[2020-11-19 04:24] LABS: Anion Gap 18 mmol/L (10-20); BUN (Urea Nitrogen) 33 mg/dL (7.0-18.7); Calc. Creatinine Clearance 23 mL/min (70-130); Calcium 7.8 mg/dL (7.8-10.44); Carbon Dioxide 25 mmol/L (22-29); Chloride 102 mmol/L (98-107); Glucose 124 mg/dL (70-105); Potassium 3.7 mmol/L (3.5-5.1); Sodium 141 mmol/L (136-145)
[2020-11-19] MEDS: Acetaminophen 325 MG TAB PO PRN ×3 (06:15→17:24)
[2020-11-19] MEDS: Norepinephrine 8 MG/0.9% NS 250 ML IVPB SCH (06:40)
[2020-11-19] MEDS ORDERED: Albumin 25% 25 GM/100 ML BOT IVPB SCH (08:02)
[2020-11-19] MEDS ORDERED: Albumin 5% 0 ML ONE (08:10)
[2020-11-19] MEDS: Sevelamer Carbonate 800 MG TAB PO SCH ×3 (08:27→17:24)
[2020-11-19] MEDS: Pantoprazole 40 MG VIAL IVP SCH ×2 (08:28→20:23)
[2020-11-19] MEDS: Ergocalciferol 1.25 MG(50,000 UNITS) CAP PO SCH (08:33)
[2020-11-19] MEDS: Dextrose 5% in Water 1,000 ML IV SCH (18:07)
[2020-11-19 19:08] LABS: Hemoglobin 7.7 g/dL (12.0-16.0); Platelet Count 34 thou/uL (130-400)
[2020-11-20] MEDS: Meropenem 500 MG in Sodium Chloride 0.9% 100 ML IVPB SCH ×2 (02:30→14:15)
[2020-11-20] MEDS: Dextrose 5% in Water 1,000 ML IV SCH (02:31)
[2020-11-20 02:49] LABS: #Eosinphils 0.2 thou/uL (0.0-0.7); #Lymphocytes 0.9 thou/uL (1.20-3.40); #Monocytes 0.4 thou/uL (0.11-0.59); #Neutrophils 2.5 thou/uL (1.40-6.50); %Basophils 1.2 % (0.0-1.0); %Eosinophils 3.9 % (0.0-10.0); %Lymphocytes 22.3 % (21.0-51.0); %Monocytes 10.3 % (0.0-10.0); %Neutrophils 62.3 % (42.0-75.0); Hemoglobin 7.4 g/dL (12.0-16.0); Mean Corpuscular HGB CONC 33.5 g/dL (32.0-36.0); Mean Corpuscular Hemoglobin 31.6 pg (27.0-31.0); Mean Corpuscular Volume 94.4 fL (78.0-98.0); Mean Platelet Volume 8.5 fL (7.4-10.4); Platelet Count 34 thou/uL (130-400); RBC Distribution Width 16.1 % (11.5-14.5); Red Blood Cell (RBC) Count 2.35 mill/uL (4.20-5.40)
[2020-11-20 03:07] LABS: Anion Gap 16 mmol/L (10-20); BUN (Urea Nitrogen) 19 mg/dL (7.0-18.7); Calc. Creatinine Clearance 36 mL/min (70-130); Calcium 8.1 mg/dL (7.8-10.44); Carbon Dioxide 26 mmol/L (22-29); Chloride 98 mmol/L (98-107); Glucose 106 mg/dL (70-105); Potassium 3.6 mmol/L (3.5-5.1); Sodium 136 mmol/L (136-145)
[2020-11-20] MEDS: Sevelamer Carbonate 800 MG TAB PO SCH ×3 (08:36→17:09)
[2020-11-20] MEDS: Pantoprazole 40 MG VIAL IVP SCH ×2 (08:36→21:20)
[2020-11-20 11:22] LABS: Hemoglobin 7.5 g/dL (12.0-16.0); Platelet Count 43 thou/uL (130-400)
[2020-11-20] MEDS: Morphine 4 MG/ML VIAL ONE (14:49)
[2020-11-20] MEDS: Ondansetron PF 4 MG/2 ML Vial IVP PRN ×2 (15:02→21:36)
[2020-11-20] MEDS ORDERED: Morphine 2 MG/ML VIAL SLOW IVP SCH (15:15)
[2020-11-20] MEDS: Acetaminophen 325 MG TAB PO PRN (23:39)
[2020-11-21] MEDS: traMADol HCl 50 MG TAB PO PRN ×3 (03:12→16:08)
[2020-11-21 04:16] LABS: Anion Gap 17 mmol/L (10-20); BUN (Urea Nitrogen) 23 mg/dL (7.0-18.7); Calc. Creatinine Clearance 26 mL/min (70-130); Calcium 8.1 mg/dL (7.8-10.44); Carbon Dioxide 24 mmol/L (22-29); Chloride 100 mmol/L (98-107); Glucose 95 mg/dL (70-105); Potassium 3.7 mmol/L (3.5-5.1); Sodium 137 mmol/L (136-145)
[2020-11-21 04:17] LABS: #Basophils 0.1 thou/uL (0.0-0.2); #Eosinphils 0.1 thou/uL (0.0-0.7); #Lymphocytes 0.9 thou/uL (1.20-3.40); #Monocytes 0.4 thou/uL (0.11-0.59); %Basophils 1.8 % (0.0-1.0); %Eosinophils 3.8 % (0.0-10.0); %Lymphocytes 25.9 % (21.0-51.0); %Monocytes 11.5 % (0.0-10.0); %Neutrophils 56.9 % (42.0-75.0); Hemoglobin 7.4 g/dL (12.0-16.0); Mean Corpuscular HGB CONC 33.2 g/dL (32.0-36.0); Mean Corpuscular Hemoglobin 31.8 pg (27.0-31.0); Mean Corpuscular Volume 95.6 fL (78.0-98.0); Mean Platelet Volume 8.9 fL (7.4-10.4); Platelet Count 47 thou/uL (130-400); RBC Distribution Width 16.1 % (11.5-14.5); Red Blood Cell (RBC) Count 2.32 mill/uL (4.20-5.40); White Blood Cell (WBC) Count 3.5 thou/uL (4.8-10.8)
[2020-11-21] MEDS ORDERED: Nadolol 40 MG TAB PO SCH (09:00)
[2020-11-21] MEDS: Pantoprazole 40 MG VIAL IVP SCH (09:58)
[2020-11-21] MEDS: Sevelamer Carbonate 800 MG TAB PO SCH ×3 (09:58→17:16)
[2020-11-21 12:51] VITALS: BP 115/67
[2020-11-21] MEDS: Acetaminophen 325 MG TAB PO PRN (13:25)
[2020-11-21 13:33] VITALS: BMI 36.9
[2020-11-21 15:18] VITALS: TEMP 97.6
== END 2020-11-21 18:07 | disposition home or self-care (01) | DRG 291 ==
LOC: ERS 10:36 → IMCU/EMU 13:52 → CCU 14:04 → IMCU/EMU 11-18 15:17 → CCU 11-18 22:04 → IMCU/EMU 11-20 23:35
PROVIDERS: ADMIT Internal Medicine; ATTEND Internal Medicine
PROC: 5A09457 Assistance with Respiratory Ventilation, 24-96 Consecutive Hours, Continuous Positive Airway Pressure (ICD-10-PCS; 2020-11-10)
PROC: 5A1D70Z Performance of Urinary Filtration, Intermittent, Less than 6 Hours Per Day (ICD-10-PCS; 2020-11-10)
PROC: 5A1955Z Respiratory Ventilation, Greater than 96 Consecutive Hours (ICD-10-PCS; principal; 2020-11-13)
PROC: 30233K1 Transfusion of Nonautologous Frozen Plasma into Peripheral Vein, Percutaneous Approach (ICD-10-PCS; 2020-11-13)
PROC: 30233N0 Transfusion of Autologous Red Blood Cells into Peripheral Vein, Percutaneous Approach (ICD-10-PCS; 2020-11-13)
PROC: 0W3P8ZZ Control Bleeding in Gastrointestinal Tract, Via Natural or Artificial Opening Endoscopic (ICD-10-PCS; 2020-11-13)
PROC: 0BH17EZ Insertion of Endotracheal Airway into Trachea, Via Natural or Artificial Opening (ICD-10-PCS; 2020-11-13)
PROC: 3E033XZ Introduction of Vasopressor into Peripheral Vein, Percutaneous Approach (ICD-10-PCS; 2020-11-14)
PROC: 02HV33Z Insertion of Infusion Device into Superior Vena Cava, Percutaneous Approach (ICD-10-PCS; 2020-11-14)
PROC: B548ZZA Ultrasonography of Superior Vena Cava, Guidance (ICD-10-PCS; 2020-11-14)
PROC: 0DJ08ZZ Inspection of Upper Intestinal Tract, Via Natural or Artificial Opening Endoscopic (ICD-10-PCS; 2020-11-14)
DX: I13.2 Hypertensive heart and chronic kidney disease with heart failure and with stage 5 chronic kidney disease, or end stage renal disease (principal); A41.9 Sepsis, unspecified organism; N18.6 End stage renal disease; G93.41 Metabolic encephalopathy; J96.01 Acute respiratory failure with hypoxia; I50.31 Acute diastolic (congestive) heart failure; K31.82 Dieulafoy lesion (hemorrhagic) of stomach and duodenum; R57.8 Other shock; R65.20 Severe sepsis without septic shock; E87.2 Acidosis; N25.81 Secondary hyperparathyroidism of renal origin; D62 Acute posthemorrhagic anemia; I85.10 Secondary esophageal varices without bleeding; E87.0 Hyperosmolality and hypernatremia; D68.4 Acquired coagulation factor deficiency; L97.119 Non-pressure chronic ulcer of right thigh with unspecified severity; Z20.822 Contact with and (suspected) exposure to COVID-19; K74.60 Unspecified cirrhosis of liver; E87.5 Hyperkalemia; K72.90 Hepatic failure, unspecified without coma; E66.01 Morbid (severe) obesity due to excess calories; D63.1 Anemia in chronic kidney disease; E55.9 Vitamin D deficiency, unspecified; E88.09 Other disorders of plasma-protein metabolism, not elsewhere classified; B18.2 Chronic viral hepatitis C; D69.6 Thrombocytopenia, unspecified; E16.2 Hypoglycemia, unspecified; M25.852 Other specified joint disorders, left hip; Z99.2 Dependence on renal dialysis; Z88.8 Allergy status to other drugs, medicaments and biological substances; Z79.899 Other long term (current) drug therapy; Z91.19 Patient's noncompliance with other medical treatment and regimen; Z78.1 Physical restraint status; Z91.15 Patient's noncompliance with renal dialysis; Z71.3 Dietary counseling and surveillance; Z68.36 Body mass index [BMI] 36.0-36.9, adult; Z98.51 Tubal ligation status; Z83.3 Family history of diabetes mellitus; Z84.1 Family history of disorders of kidney and ureter; S71.101A Unspecified open wound, right thigh, initial encounter
CPT/HCPCS: 0240U; 36415; 36416; 36430; 36600; 70450; 71045; 80048; 80053; 80069; 80202; 82140; 82306; 82550; 82553; 82728; 82805; 83540; 83550; 83605; 83735; 83880; 84100; 84484; 85025; 85610; 85652; 85730; 86140; 86850; 86900; 86901; 87040; 87070; 87076; 87077; 87186; 87205; 90935; 93005; 93010; 93970; 94002; 94003; 94640; 94660; C9113; G0257; J0171; J0692; J1815; J1940; J2001; J2060; J2185; J2250; J2270; J2405; J2704; J3010; J3370; J3430; J3490; J7611; J7620; P9016; P9047; P9059; Q5105

== ENCOUNTER 2020-11-25 21:48 | Inpatient (IN) | payer OTHER ==
[2020-11-25] MEDS ORDERED: Dextrose 50% Abboject 50 ML SYRINGE ONE (22:00)
[2020-11-25 22:47] LABS: #Eosinphils 0.1 thou/uL (0.0-0.7); #Lymphocytes 1.3 thou/uL (1.20-3.40); #Monocytes 0.2 thou/uL (0.11-0.59); %Basophils 0.1 % (0.0-1.0); %Eosinophils 0.6 % (0.0-10.0); %Lymphocytes 11.8 % (21.0-51.0); %Monocytes 2.2 % (0.0-10.0); %Neutrophils 85.3 % (42.0-75.0); Hemoglobin 7.9 g/dL (12.0-16.0); Mean Corpuscular HGB CONC 30.5 g/dL (32.0-36.0); Mean Corpuscular Hemoglobin 30.8 pg (27.0-31.0); Mean Platelet Volume 8.4 fL (7.4-10.4); Platelet Count 110 thou/uL (130-400); RBC Distribution Width 17.2 % (11.5-14.5); Red Blood Cell (RBC) Count 2.58 mill/uL (4.20-5.40); White Blood Cell (WBC) Count 10.5 thou/uL (4.8-10.8)
[2020-11-25] MEDS ORDERED: EPINEPHrine 1 MG/ML AMP ONE (23:03)
[2020-11-25 23:07] LABS: CKMB 5.5 ng/mL (0-6.6)
[2020-11-25] MEDS ORDERED: Cefepime 2 GM VIAL ONE (23:19)
[2020-11-25] MEDS ORDERED: Vancomycin 1 GM/200 ML BAG ONE (23:19)
[2020-11-25 23:58] LABS: ALT (SGPT) 22 U/L (8-55); AST (SGOT) 248 U/L (5-34); Albumin 3.2 g/dL (3.5-5.0); Alkaline Phosphatase 234 U/L (40-110); Anion Gap 22 mmol/L (10-20); BUN (Urea Nitrogen) 37 mg/dL (7.0-18.7); Bilirubin, Total 11.7 mg/dL (0.2-1.2); CK (CPK) 135 U/L (29-168); Calc. Creatinine Clearance 0 mL/min (70-130); Calcium 8.4 mg/dL (7.8-10.44); Carbon Dioxide 21 mmol/L (22-29); Chloride 97 mmol/L (98-107); Globulin 2.4 g/dL (2.4-3.5); Glucose 132 mg/dL (70-105); Lipase 42 U/L (8-78); Potassium 5.3 mmol/L (3.5-5.1); Protein, Total 5.6 g/dL (6.0-8.3); Sodium 135 mmol/L (136-145)
[2020-11-26 01:20] LABS: Lactic Acid 3.9 mmol/L (0.5-2.2)
[2020-11-26 01:35] LABS: Troponin I 0.329 ng/mL (< 0.028)
[2020-11-26 01:38] LABS: SARS-CoV-2 NAA Rapid Test Not Detected (NotDetected)
[2020-11-26] MEDS ORDERED: Acetaminophen 650 MG Suppository PR PRN (01:38)
[2020-11-26] MEDS ORDERED: VANCOMYCIN 1.25 GM/250 ML BAG IVPB SCH (01:45)
[2020-11-26] MEDS ORDERED: Ventilator Sedation Protocol 1 EACH FS SCH (01:45)
[2020-11-26] MEDS ORDERED: Norepinephrine 8 MG/0.9% NS 250 ML IVPB PRN (01:45)
[2020-11-26] MEDS ORDERED: Fentanyl CADD 100 ML IV SCH (02:00)
[2020-11-26] MEDS ORDERED: Morphine 2 MG/ML VIAL SLOW IVP PRN (02:00)
[2020-11-26] MEDS ORDERED: Fentanyl BOLUS 250 ML IVPB PRN (02:00)
[2020-11-26] MEDS ORDERED: Lorazepam 2 MG/ML VIAL SLOW IVP PRN (02:00)
[2020-11-26] MEDS ORDERED: Propofol 1,000 MG/100 ML VIAL IV PRN (02:00)
[2020-11-26] MEDS ORDERED: Propofol BOLUS 1,000 MG/100 ML VIAL IV PRN (02:00)
[2020-11-26 02:09] LABS: #Eosinphils 0.1 thou/uL (0.0-0.7); #Lymphocytes 1.9 thou/uL (1.20-3.40); #Monocytes 1.1 thou/uL (0.11-0.59); #Neutrophils 13.8 thou/uL (1.40-6.50); %Basophils 0.3 % (0.0-1.0); %Eosinophils 0.4 % (0.0-10.0); %Monocytes 6.6 % (0.0-10.0); %Neutrophils 81.8 % (42.0-75.0); Mean Corpuscular HGB CONC 30.7 g/dL (32.0-36.0); Mean Corpuscular Hemoglobin 30.9 pg (27.0-31.0); Mean Platelet Volume 8.8 fL (7.4-10.4); Platelet Count 156 thou/uL (130-400); RBC Distribution Width 16.7 % (11.5-14.5); Red Blood Cell (RBC) Count 2.92 mill/uL (4.20-5.40); White Blood Cell (WBC) Count 16.8 thou/uL (4.8-10.8)
[2020-11-26 02:30] LABS: ALT (SGPT) 26 U/L (8-55); AST (SGOT) 286 U/L (5-34); Albumin 3.4 g/dL (3.5-5.0); Alkaline Phosphatase 268 U/L (40-110); Anion Gap 21 mmol/L (10-20); BUN (Urea Nitrogen) 35 mg/dL (7.0-18.7); Bilirubin, Total 13.8 mg/dL (0.2-1.2); Calc. Creatinine Clearance 0 mL/min (70-130); Calcium 8.4 mg/dL (7.8-10.44); Carbon Dioxide 20 mmol/L (22-29); Chloride 97 mmol/L (98-107); Globulin 2.8 g/dL (2.4-3.5); Glucose 217 mg/dL (70-105); Potassium 5.1 mmol/L (3.5-5.1); Protein, Total 6.2 g/dL (6.0-8.3); Sodium 133 mmol/L (136-145)
[2020-11-26] MEDS: EPINEPHrine 4 MG in Dextrose 5% in Water 250 ML IV SCH ×5 (04:01→21:58)
[2020-11-26] MEDS ORDERED: Dextrose 10% in Water 1,000 ML IV SCH (04:15)
[2020-11-26 04:30] LABS: Anion Gap 21 mmol/L (10-20); BUN (Urea Nitrogen) 34 mg/dL (7.0-18.7); Calc. Creatinine Clearance 18 mL/min (70-130); Calcium 8.4 mg/dL (7.8-10.44); Carbon Dioxide 19 mmol/L (22-29); Chloride 97 mmol/L (98-107); Glucose 220 mg/dL (70-105); Potassium 5.2 mmol/L (3.5-5.1); Sodium 132 mmol/L (136-145)
[2020-11-26 04:50] LABS: Troponin I 0.341 ng/mL (< 0.028)
[2020-11-26] MEDS ORDERED: Vancomycin 1 GM in Premix Bag 1 BAG IVPB SCH (05:00)
[2020-11-26 05:33] LABS: Lactic Acid 3.7 mmol/L (0.5-2.2)
[2020-11-26] MEDS ORDERED: Albumin 25% 25 GM/100 ML BOT IVPB SCH (09:24)
[2020-11-26 09:56] LABS: HBSAg Index 0.28 S/CO (0-0.99); Hep B Surf Ag Non-Reactive S/CO (NonReactive)
[2020-11-26] MEDS: Norepinephrine 8 MG/0.9% NS 250 ML IVPB SCH ×2 (11:02→21:58)
[2020-11-26] MEDS ORDERED: Cosyntropin 250 MCG VIAL SLOW IVP SCH (11:30)
[2020-11-26] MEDS ORDERED: Iopamidol-370 76% 500 ML 1 ML ONE (14:50)
[2020-11-26] MEDS: Cefepime 0.5 GM, Admixture Fee 1 EACH in Sodium Chloride 0.9% 100 ML IVPB SCH (20:24)
[2020-11-27] MEDS: EPINEPHrine 4 MG in Dextrose 5% in Water 250 ML IV SCH ×4 (02:34→20:59)
[2020-11-27] MEDS: Norepinephrine 8 MG/0.9% NS 250 ML IVPB SCH ×5 (02:35→19:37)
[2020-11-27] MEDS ORDERED: Vancomycin 1 GM in Premix Bag 1 BAG IVPB SCH ×2 (05:00→12:15)
[2020-11-27 05:33] LABS: Vancomycin, Random 24.3 ug/mL (See Comment)
[2020-11-27 05:37] LABS: Anion Gap 16 mmol/L (10-20); BUN (Urea Nitrogen) 20 mg/dL (7.0-18.7); Calc. Creatinine Clearance 28 mL/min (70-130); Calcium 8.8 mg/dL (7.8-10.44); Carbon Dioxide 26 mmol/L (22-29); Chloride 96 mmol/L (98-107); Glucose 134 mg/dL (70-105); Potassium 3.8 mmol/L (3.5-5.1); Sodium 134 mmol/L (136-145)
[2020-11-27 05:57] LABS: #Eosinphils 0.2 thou/uL (0.0-0.7); #Lymphocytes 2.4 thou/uL (1.20-3.40); #Monocytes 0.8 thou/uL (0.11-0.59); #Neutrophils 6.8 thou/uL (1.40-6.50); %Basophils 0.3 % (0.0-1.0); %Eosinophils 1.9 % (0.0-10.0); %Lymphocytes 23.4 % (21.0-51.0); %Monocytes 8.2 % (0.0-10.0); %Neutrophils 66.3 % (42.0-75.0); Hemoglobin 8.8 g/dL (12.0-16.0); MDiff Complete? YES; Macrocytosis SLIGHT = 6-15 cells (100X) (0-5/hpf); Mean Corpuscular HGB CONC 30.1 g/dL (32.0-36.0); Mean Corpuscular Hemoglobin 30.3 pg (27.0-31.0); Mean Platelet Volume 8.3 fL (7.4-10.4); Platelet Count 96 thou/uL (130-400); Platelet Morphology Comment Appears Decreased; RBC Distribution Width 16.9 % (11.5-14.5); White Blood Cell (WBC) Count 10.2 thou/uL (4.8-10.8)
[2020-11-27] MEDS: Pantoprazole 40 MG VIAL IVP SCH ×2 (07:49→21:22)
[2020-11-27] MEDS: Hydrocortisone Sod Succ/PF 100 mg/2 ml Vial IVP SCH ×3 (08:38→21:11)
[2020-11-27] MEDS ORDERED: Vancomycin HCl 750 MG in Sodium Chloride 0.9% 250 ML 250 ML IVPB SCH (12:15)
[2020-11-27] MEDS ORDERED: VANCOMYCIN 1.25 GM/250 ML BAG 1.25 GM in Premix Bag 1 BAG IVPB SCH (12:15)
[2020-11-27] MEDS ORDERED: HOLD VANCOMYCIN FOR LEVEL >20 FS SCH (12:15)
[2020-11-27] MEDS: Albumin 25% 25 GM/100 ML BOT IVPB SCH ×2 (15:04→21:11)
[2020-11-27 15:27] LABS: Bilirubin, Direct 10.2 mg/dL (0.1-0.3)
[2020-11-27 15:52] LABS: Actual Bicarbonate (HCO3a) 22.4 mEq/L (22-28); Base Excess (BEa) -5.2 mEq/L (-2.0 to +3.0); CO2 Tension 54.5 mmHg (35.0-45.0); Calcium, Ionized (arterial) 1.12 mmol/L (1.12-1.30); Carboxyhemoglobin (COHb) 1.9 gm% (0.0-3.0); Hemoglobin (Hb) 9.6 g/dL (12.0-16.0); O2 Tension (PaO2), arterial 83.9 mmHg (80.0-100.0); Potassium - ABG Lab 4.25 mmol/L (3.70-5.30)
[2020-11-27 15:53] LABS: Puncture Site RRA; pH, Arterial 7.23 (7.35-7.45)
[2020-11-27] MEDS ORDERED: Vasopressin 20 UNIT, Admixture Fee 1 EACH in Sodium Chloride 0.9% 50 ML IV SCH (17:00)
[2020-11-27] MEDS ORDERED: Sodium Bicarb 50 MEQ/50 ML Abboject 8.4% SYRINGE ONE (17:02)
[2020-11-27] MEDS ORDERED: Sodium Bicarb 50 MEQ/50 ML Abboject 8.4% SYRINGE IVP SCH (17:15)
[2020-11-27 17:27] LABS: Actual Bicarbonate (HCO3a) 24.9 mEq/L (22-28); Base Excess (BEa) -3.2 mEq/L (-2.0 to +3.0); Calcium, Ionized (arterial) 1.09 mmol/L (1.12-1.30); Carboxyhemoglobin (COHb) 1.9 gm% (0.0-3.0); Hemoglobin (Hb) 9.5 g/dL (12.0-16.0); O2 Tension (PaO2), arterial 66.5 mmHg (80.0-100.0); Potassium - ABG Lab 4.27 mmol/L (3.70-5.30)
[2020-11-27 17:31] LABS: ALV-art Gradient 55.265 mmHg (0-20); CO2 Tension 62.3 mmHg (35.0-45.0); Puncture Site RRA; pH, Arterial 7.22 (7.35-7.45)
[2020-11-27] MEDS ORDERED: Lorazepam 2 MG/ML VIAL SLOW IVP PRN (17:54)
[2020-11-27] MEDS ORDERED: HYDROmorphone 0.5 MG/0.5 ML SYRINGE SLOW IVP PRN (17:55)
[2020-11-27] MEDS ORDERED: Rocuronium Bromide 10 MG/ML (10ML VIAL) IVP SCH (18:00)
[2020-11-27 19:00] LABS: Actual Bicarbonate (HCO3v) 23 mEq/L (22-28); Base Excess -3.5 mEq/L (-2.0 to +3.0); Calcium, Ionized (venous) 1.04 mmol/L (1.16-1.32); Chloride (VBG) 97 mmol/L (98-106); Hemoglobin (Hb) 9.1 g/dL (11.7-16.0); Potassium (VBG) 4.17 mmol/L (3.70-5.30); pH (venous) 7.31 (7.32-7.43)
[2020-11-27] MEDS: Morphine 4 MG/ML VIAL SLOW IVP PRN (19:55)
[2020-11-27] MEDS: Cefepime 0.5 GM, Admixture Fee 1 EACH in Sodium Chloride 0.9% 100 ML IVPB SCH (21:10)
[2020-11-27] MEDS: Midodrine HCl 5 MG TAB PO SCH (21:22)
[2020-11-27] MEDS: Ascorbic Acid 2,000 MG in Sodium Chloride 0.9% 50 ML IVPB SCH (21:53)
[2020-11-28] MEDS: EPINEPHrine 4 MG in Dextrose 5% in Water 250 ML IV SCH ×3 (03:21→17:35)
[2020-11-28] MEDS: Norepinephrine 8 MG/0.9% NS 250 ML IVPB SCH ×2 (03:22→19:03)
[2020-11-28] MEDS: Albumin 25% 25 GM/100 ML BOT IVPB SCH ×2 (05:59→15:14)
[2020-11-28] MEDS: Hydrocortisone Sod Succ/PF 100 mg/2 ml Vial IVP SCH ×3 (05:59→21:14)
[2020-11-28 06:38] LABS: #Basophils 0.1 thou/uL (0.0-0.2); #Lymphocytes 1.4 thou/uL (1.20-3.40); #Monocytes 0.2 thou/uL (0.11-0.59); #Neutrophils 4.1 thou/uL (1.40-6.50); %Basophils 0.9 % (0.0-1.0); %Eosinophils 0.2 % (0.0-10.0); %Monocytes 4.1 % (0.0-10.0); %Neutrophils 70.9 % (42.0-75.0); Hemoglobin 7.8 g/dL (12.0-16.0); Mean Corpuscular HGB CONC 32.6 g/dL (32.0-36.0); Mean Corpuscular Hemoglobin 31.6 pg (27.0-31.0); Mean Platelet Volume 7.9 fL (7.4-10.4); Platelet Count 57 thou/uL (130-400); RBC Distribution Width 16.8 % (11.5-14.5); Red Blood Cell (RBC) Count 2.47 mill/uL (4.20-5.40); White Blood Cell (WBC) Count 5.8 thou/uL (4.8-10.8)
[2020-11-28 06:54] LABS: Phosphorus 4.5 mg/dL (2.3-4.7)
[2020-11-28 06:58] LABS: ALT (SGPT) 27 U/L (8-55); AST (SGOT) 255 U/L (5-34); Albumin 3.9 g/dL (3.5-5.0); Alkaline Phosphatase 213 U/L (40-110); Anion Gap 20 mmol/L (10-20); BUN (Urea Nitrogen) 31 mg/dL (7.0-18.7); Bilirubin, Total 17.2 mg/dL (0.2-1.2); Calc. Creatinine Clearance 23 mL/min (70-130); Carbon Dioxide 20 mmol/L (22-29); Chloride 97 mmol/L (98-107); Globulin 2.2 g/dL (2.4-3.5); Glucose 164 mg/dL (70-105); Potassium 4.2 mmol/L (3.5-5.1); Protein, Total 6.1 g/dL (6.0-8.3); Sodium 133 mmol/L (136-145)
[2020-11-28] MEDS ORDERED: Iron, Sodium Ferric Gluconate 250 MG in Sodium Chloride 0.9% 100 ML IVPB SCH (08:45)
[2020-11-28] MEDS ORDERED: Epoetin (ESRD) 20,000 UNITS/ML SC SCH (09:00)
[2020-11-28] MEDS: Midodrine HCl 5 MG TAB PO SCH ×2 (09:03→21:15)
[2020-11-28] MEDS: Pantoprazole 40 MG VIAL IVP SCH ×2 (09:03→21:15)
[2020-11-28 09:12] LABS: Vancomycin, Random 19.8 ug/mL (See Comment)
[2020-11-28] MEDS: EPOETIN ALFA-EPBX (ESRD) 2,000 UNIT/ML VIAL SC SCH (09:59)
[2020-11-28] MEDS: EPOETIN ALFA-EPBX (ESRD) 3,000 UNIT/ML VIAL SC SCH (09:59)
[2020-11-28] MEDS: Vancomycin HCl 500 MG in Sodium Chloride 0.9% 100 ML IVPB SCH (09:59)
[2020-11-28] MEDS ORDERED: Albumin 25% 25 GM/100 ML BOT IVPB SCH (10:00)
[2020-11-28] MEDS: Ascorbic Acid 2,000 MG in Sodium Chloride 0.9% 50 ML IVPB SCH ×2 (10:00→21:14)
[2020-11-28] MEDS: Cefepime 0.5 GM, Admixture Fee 1 EACH in Sodium Chloride 0.9% 100 ML IVPB SCH (21:14)
[2020-11-29] MEDS: EPINEPHrine 4 MG in Dextrose 5% in Water 250 ML IV SCH ×3 (00:37→18:20)
[2020-11-29 03:59] LABS: #Basophils 0.1 thou/uL (0.0-0.2); #Lymphocytes 1.4 thou/uL (1.20-3.40); #Monocytes 0.5 thou/uL (0.11-0.59); #Neutrophils 4.2 thou/uL (1.40-6.50); %Basophils 1.3 % (0.0-1.0); %Eosinophils 0.1 % (0.0-10.0); %Monocytes 7.3 % (0.0-10.0); %Neutrophils 68.2 % (42.0-75.0); Hemoglobin 7.8 g/dL (12.0-16.0); Mean Corpuscular HGB CONC 32.9 g/dL (32.0-36.0); Mean Corpuscular Hemoglobin 31.3 pg (27.0-31.0); Mean Corpuscular Volume 95.1 fL (78.0-98.0); Mean Platelet Volume 8.1 fL (7.4-10.4); Platelet Count 37 thou/uL (130-400); RBC Distribution Width 16.3 % (11.5-14.5); White Blood Cell (WBC) Count 6.2 thou/uL (4.8-10.8)
[2020-11-29 04:05] LABS: PTT 53.1 sec (22.9-36.1); Prothrombin Time 42.2 sec (12.0-14.7)
[2020-11-29 04:06] LABS: INR-International Normal Ratio 4.3
[2020-11-29 04:18] LABS: ALT (SGPT) 27 U/L (8-55); AST (SGOT) 216 U/L (5-34); Alkaline Phosphatase 167 U/L (40-110); Anion Gap 24 mmol/L (10-20); BUN (Urea Nitrogen) 26 mg/dL (7.0-18.7); Bilirubin, Total 20.3 mg/dL (0.2-1.2); Calc. Creatinine Clearance 33 mL/min (70-130); Calcium 9.9 mg/dL (7.8-10.44); Carbon Dioxide 18 mmol/L (22-29); Chloride 98 mmol/L (98-107); Globulin 1.9 g/dL (2.4-3.5); Glucose 160 mg/dL (70-105); Potassium 3.9 mmol/L (3.5-5.1); Protein, Total 5.9 g/dL (6.0-8.3); Sodium 136 mmol/L (136-145)
[2020-11-29] MEDS ORDERED: Albumin 25% 25 GM/100 ML BOT IVPB SCH (05:00)
[2020-11-29 05:21] LABS: D-Dimer Test 10.79 *mcg/mL (0.27-0.43)
[2020-11-29] MEDS: Hydrocortisone Sod Succ/PF 100 mg/2 ml Vial IVP SCH ×3 (05:22→22:04)
[2020-11-29 05:26] LABS: Fibrinogen 33 mg/dL (253-463)
[2020-11-29] MEDS: Meropenem 500 MG in Sodium Chloride 0.9% 100 ML IVPB SCH (06:31)
[2020-11-29 06:50] LABS: Lactic Acid 7.7 mmol/L (0.5-2.2)
[2020-11-29] MEDS: Pantoprazole 40 MG VIAL IVP SCH ×2 (08:36→20:28)
[2020-11-29] MEDS: Midodrine HCl 5 MG TAB PO SCH ×2 (08:41→20:28)
[2020-11-29] MEDS: Ascorbic Acid 2,000 MG in Sodium Chloride 0.9% 50 ML IVPB SCH ×2 (08:53→20:28)
[2020-11-29 09:30] LABS: Lactic Acid 7.7 mmol/L (0.5-2.2)
[2020-11-29 09:35] LABS: Vancomycin, Random 18.1 ug/mL (See Comment)
[2020-11-29] MEDS ORDERED: Phytonadione 5 MG in Sodium Chloride 0.9% 50 ML IVPB SCH (18:15)
[2020-11-30] MEDS: EPINEPHrine 4 MG in Dextrose 5% in Water 250 ML IV SCH ×3 (02:49→22:31)
[2020-11-30 04:45] LABS: #Lymphocytes 1.3 thou/uL (1.20-3.40); #Monocytes 0.5 thou/uL (0.11-0.59); %Basophils 0.5 % (0.0-1.0); %Lymphocytes 18.8 % (21.0-51.0); %Monocytes 6.8 % (0.0-10.0); %Neutrophils 73.9 % (42.0-75.0); Hemoglobin 8.2 g/dL (12.0-16.0); Mean Corpuscular HGB CONC 33.5 g/dL (32.0-36.0); Mean Corpuscular Hemoglobin 32.4 pg (27.0-31.0); Mean Corpuscular Volume 96.5 fL (78.0-98.0); Mean Platelet Volume 8.4 fL (7.4-10.4); Platelet Count 46 thou/uL (130-400); RBC Distribution Width 16.8 % (11.5-14.5); Red Blood Cell (RBC) Count 2.55 mill/uL (4.20-5.40); White Blood Cell (WBC) Count 6.7 thou/uL (4.8-10.8)
[2020-11-30 04:46] LABS: INR-International Normal Ratio 3.4; PTT 52.2 sec (22.9-36.1); Prothrombin Time 35.3 sec (12.0-14.7)
[2020-11-30 04:47] LABS: INR-International Normal Ratio 3.4; PTT 51.7 sec (22.9-36.1); Platelet Count 46 thou/uL (130-400); Prothrombin Time 35.3 sec (12.0-14.7)
[2020-11-30] MEDS: Meropenem 500 MG in Sodium Chloride 0.9% 100 ML IVPB SCH (05:04)
[2020-11-30] MEDS: Hydrocortisone Sod Succ/PF 100 mg/2 ml Vial IVP SCH ×3 (05:04→22:09)
[2020-11-30 05:08] LABS: ALT (SGPT) 27 U/L (8-55); AST (SGOT) 166 U/L (5-34); Alkaline Phosphatase 146 U/L (40-110); Anion Gap 27 mmol/L (10-20); BUN (Urea Nitrogen) 42 mg/dL (7.0-18.7); Bilirubin, Total 23.8 mg/dL (0.2-1.2); Calc. Creatinine Clearance 25 mL/min (70-130); Calcium 9.5 mg/dL (7.8-10.44); Carbon Dioxide 16 mmol/L (22-29); Chloride 97 mmol/L (98-107); Globulin 2.1 g/dL (2.4-3.5); Glucose 214 mg/dL (70-105); Protein, Total 6.1 g/dL (6.0-8.3); Sodium 136 mmol/L (136-145)
[2020-11-30 05:11] LABS: D-Dimer Test 9.04 *mcg/mL (0.27-0.43)
[2020-11-30 05:42] LABS: FSP-Qualitative ABNORMAL (Normal); FSP-Semiquantitative >=40 & <80 mcg/mL (Less than 5); Fibrinogen 45 mg/dL (253-463)
[2020-11-30 07:26] LABS: Analyzer IN Cardio ER; Base Excess (BEa) -5.3 mEq/L (-2.0 to +3.0); CO2 Tension 27.4 mmHg (35.0-45.0); Calcium, Ionized (arterial) 1.13 mmol/L (1.12-1.30); Carboxyhemoglobin (COHb) 1.1 gm% (0.0-3.0); O2 Tension (PaO2), arterial 82.3 mmHg (80.0-100.0); Potassium - ABG Lab 3.97 mmol/L (3.70-5.30); pH, Arterial 7.44 (7.35-7.45)
[2020-11-30 07:50] LABS: Puncture Site RRA
[2020-11-30] MEDS: Pantoprazole 40 MG VIAL IVP SCH ×2 (08:04→20:34)
[2020-11-30] MEDS: Acetaminophen 325 MG TAB PO PRN (08:15)
[2020-11-30] MEDS: Midodrine HCl 5 MG TAB PO SCH ×2 (08:15→20:33)
[2020-11-30 10:35] LABS: Vancomycin, Random 17.2 ug/mL (See Comment)
[2020-11-30] MEDS ORDERED: Phytonadione 10 MG/ML AMP SLOW IVP SCH (11:30)
[2020-11-30] MEDS ORDERED: Fluconazole In NaCl,Iso-Osm 200 MG in Premix Bag 1 BAG IVPB SCH (12:00)
[2020-11-30] MEDS: Vancomycin HCl 500 MG in Sodium Chloride 0.9% 100 ML IVPB SCH (12:08)
[2020-11-30] MEDS: Ascorbic Acid 2,000 MG in Sodium Chloride 0.9% 50 ML IVPB SCH ×2 (12:08→22:06)
[2020-11-30] MEDS: Nystatin 500,000 UNITS/5 ML UDCUP SSW SCH ×3 (12:10→20:33)
[2020-11-30] MEDS ORDERED: Dextrose 5% in Water 1,000 ML IV PRN (13:00)
[2020-11-30] MEDS: HumaLOG 300 UNITS/3 ML VIAL SC PRN ×3 (14:01→20:39)
[2020-12-01] MEDS: HumaLOG 300 UNITS/3 ML VIAL SC PRN ×5 (00:36→21:28)
[2020-12-01 04:27] LABS: #Lymphocytes 1.1 thou/uL (1.20-3.40); #Monocytes 0.3 thou/uL (0.11-0.59); #Neutrophils 4.1 thou/uL (1.40-6.50); %Basophils 0.2 % (0.0-1.0); %Lymphocytes 20.5 % (21.0-51.0); %Monocytes 6.1 % (0.0-10.0); %Neutrophils 73.1 % (42.0-75.0); Mean Corpuscular HGB CONC 32.9 g/dL (32.0-36.0); Mean Corpuscular Hemoglobin 31.5 pg (27.0-31.0); Mean Corpuscular Volume 95.6 fL (78.0-98.0); Mean Platelet Volume 9.2 fL (7.4-10.4); Platelet Count 21 thou/uL (130-400); RBC Distribution Width 17.5 % (11.5-14.5); Red Blood Cell (RBC) Count 2.55 mill/uL (4.20-5.40); White Blood Cell (WBC) Count 5.6 thou/uL (4.8-10.8)
[2020-12-01 04:37] LABS: INR-International Normal Ratio 3.3; PTT 48.1 sec (22.9-36.1); Prothrombin Time 34.6 sec (12.0-14.7)
[2020-12-01 04:51] LABS: ALT (SGPT) 27 U/L (8-55); AST (SGOT) 135 U/L (5-34); Albumin 3.7 g/dL (3.5-5.0); Alkaline Phosphatase 132 U/L (40-110); Anion Gap 23 mmol/L (10-20); BUN (Urea Nitrogen) 55 mg/dL (7.0-18.7); Bilirubin, Total 24.2 mg/dL (0.2-1.2); Calc. Creatinine Clearance 22 mL/min (70-130); Calcium 9.6 mg/dL (7.8-10.44); Carbon Dioxide 19 mmol/L (22-29); Chloride 99 mmol/L (98-107); Globulin 1.9 g/dL (2.4-3.5); Glucose 234 mg/dL (70-105); Potassium 3.3 mmol/L (3.5-5.1); Protein, Total 5.6 g/dL (6.0-8.3); Sodium 138 mmol/L (136-145)
[2020-12-01] MEDS: Meropenem 500 MG in Sodium Chloride 0.9% 100 ML IVPB SCH (06:10)
[2020-12-01] MEDS: Hydrocortisone Sod Succ/PF 100 mg/2 ml Vial IVP SCH ×3 (06:10→20:06)
[2020-12-01] MEDS: Midodrine HCl 5 MG TAB PO SCH ×2 (08:59→20:05)
[2020-12-01] MEDS: Pantoprazole 40 MG VIAL IVP SCH ×2 (09:02→20:04)
[2020-12-01] MEDS: Fludrocortisone Acetate 0.1 MG TAB PO SCH (09:02)
[2020-12-01] MEDS: Nystatin 500,000 UNITS/5 ML UDCUP SSW SCH ×4 (09:03→20:05)
[2020-12-01] MEDS: Ascorbic Acid 2,000 MG in Sodium Chloride 0.9% 50 ML IVPB SCH (09:03)
[2020-12-01] MEDS ORDERED: Potassium Bicarbonate/Cit Ac 20 MEQ TAB PER TUBE SCH (09:30)
[2020-12-01 09:33] LABS: Vancomycin, Random 16.9 ug/mL (See Comment)
[2020-12-01] MEDS: EPOETIN ALFA-EPBX (ESRD) 3,000 UNIT/ML VIAL SC SCH (10:40)
[2020-12-01] MEDS: EPOETIN ALFA-EPBX (ESRD) 2,000 UNIT/ML VIAL SC SCH (10:40)
[2020-12-01] MEDS ORDERED: Vancomycin HCl 500 MG in Sodium Chloride 0.9% 100 ML IVPB SCH (12:00)
[2020-12-01] MEDS: EPINEPHrine 4 MG in Dextrose 5% in Water 250 ML IV SCH (12:16)
[2020-12-01] MEDS: Morphine 4 MG/ML VIAL SLOW IVP PRN (20:08)
[2020-12-02 04:58] LABS: #Lymphocytes 0.8 thou/uL (1.20-3.40); #Monocytes 0.4 thou/uL (0.11-0.59); %Basophils 0.3 % (0.0-1.0); %Lymphocytes 13.1 % (21.0-51.0); %Monocytes 6.1 % (0.0-10.0); %Neutrophils 80.5 % (42.0-75.0); Hemoglobin 8.2 g/dL (12.0-16.0); Mean Corpuscular HGB CONC 32.8 g/dL (32.0-36.0); Mean Corpuscular Hemoglobin 31.9 pg (27.0-31.0); Mean Corpuscular Volume 97.2 fL (78.0-98.0); Mean Platelet Volume 10.2 fL (7.4-10.4); Platelet Count 18 thou/uL (130-400); RBC Distribution Width 18.8 % (11.5-14.5); Red Blood Cell (RBC) Count 2.58 mill/uL (4.20-5.40); White Blood Cell (WBC) Count 6.3 thou/uL (4.8-10.8)
[2020-12-02 05:07] LABS: ALT (SGPT) 43 U/L (8-55); AST (SGOT) 165 U/L (5-34); Albumin 3.6 g/dL (3.5-5.0); Alkaline Phosphatase 126 U/L (40-110); Anion Gap 24 mmol/L (10-20); BUN (Urea Nitrogen) 42 mg/dL (7.0-18.7); Calc. Creatinine Clearance 29 mL/min (70-130); Calcium 10.1 mg/dL (7.8-10.44); Carbon Dioxide 19 mmol/L (22-29); Chloride 99 mmol/L (98-107); Glucose 174 mg/dL (70-105); Potassium 3.8 mmol/L (3.5-5.1); Protein, Total 5.6 g/dL (6.0-8.3); Sodium 138 mmol/L (136-145)
[2020-12-02 05:17] LABS: Bilirubin, Total 26.3 mg/dL (0.2-1.2)
[2020-12-02] MEDS: EPINEPHrine 4 MG in Dextrose 5% in Water 250 ML IV SCH (05:34)
[2020-12-02] MEDS: HumaLOG 300 UNITS/3 ML VIAL SC PRN ×5 (05:35→21:57)
[2020-12-02] MEDS: Fludrocortisone Acetate 0.1 MG TAB PO SCH (10:55)
[2020-12-02] MEDS: Pantoprazole 40 MG VIAL IVP SCH ×2 (10:55→21:52)
[2020-12-02] MEDS: Hydrocortisone Sod Succ/PF 100 mg/2 ml Vial IVP SCH ×2 (10:55→21:51)
[2020-12-02] MEDS: Nystatin 500,000 UNITS/5 ML UDCUP SSW SCH ×4 (10:56→21:51)
[2020-12-02] MEDS: Midodrine HCl 5 MG TAB PO SCH ×2 (11:49→21:57)
[2020-12-02] MEDS: Metoclopramide HCl 10 MG/2 ML VIAL IVP SCH ×2 (13:26→22:17)
[2020-12-02] MEDS: Meropenem 500 MG in Sodium Chloride 0.9% 100 ML IVPB SCH (16:40)
[2020-12-03] MEDS: EPINEPHrine 4 MG in Dextrose 5% in Water 250 ML IV SCH (00:34)
[2020-12-03] MEDS: HumaLOG 300 UNITS/3 ML VIAL SC PRN ×4 (01:37→21:17)
[2020-12-03 05:08] LABS: #Lymphocytes 0.9 thou/uL (1.20-3.40); #Monocytes 0.5 thou/uL (0.11-0.59); #Neutrophils 7.2 thou/uL (1.40-6.50); %Basophils 0.3 % (0.0-1.0); %Lymphocytes 10.5 % (21.0-51.0); %Monocytes 5.9 % (0.0-10.0); %Neutrophils 83.2 % (42.0-75.0); Hemoglobin 8.6 g/dL (12.0-16.0); Mean Corpuscular HGB CONC 31.5 g/dL (32.0-36.0); Mean Corpuscular Hemoglobin 31.3 pg (27.0-31.0); Mean Corpuscular Volume 99.2 fL (78.0-98.0); Mean Platelet Volume 10.1 fL (7.4-10.4); Platelet Count 47 thou/uL (130-400); RBC Distribution Width 19.5 % (11.5-14.5); Red Blood Cell (RBC) Count 2.74 mill/uL (4.20-5.40); White Blood Cell (WBC) Count 8.6 thou/uL (4.8-10.8)
[2020-12-03 05:19] LABS: ALT (SGPT) 47 U/L (8-55); AST (SGOT) 145 U/L (5-34); Albumin 3.7 g/dL (3.5-5.0); Alkaline Phosphatase 130 U/L (40-110); Anion Gap 20 mmol/L (10-20); BUN (Urea Nitrogen) 56 mg/dL (7.0-18.7); Calc. Creatinine Clearance 23 mL/min (70-130); Carbon Dioxide 24 mmol/L (22-29); Chloride 102 mmol/L (98-107); Glucose 201 mg/dL (70-105); Potassium 3.9 mmol/L (3.5-5.1); Protein, Total 5.7 g/dL (6.0-8.3); Sodium 142 mmol/L (136-145)
[2020-12-03 05:29] LABS: Bilirubin, Total 31.5 mg/dL (0.2-1.2)
[2020-12-03] MEDS: Metoclopramide HCl 10 MG/2 ML VIAL IVP SCH ×3 (05:47→21:07)
[2020-12-03] MEDS: Midodrine HCl 5 MG TAB PO SCH ×2 (09:09→21:06)
[2020-12-03] MEDS: Fludrocortisone Acetate 0.1 MG TAB PO SCH (09:09)
[2020-12-03] MEDS: Hydrocortisone Sod Succ/PF 100 mg/2 ml Vial IVP SCH ×2 (09:10→21:06)
[2020-12-03] MEDS: Pantoprazole 40 MG VIAL IVP SCH ×2 (09:11→21:07)
[2020-12-03] MEDS: Nystatin 500,000 UNITS/5 ML UDCUP SSW SCH ×4 (09:11→21:07)
[2020-12-03] MEDS: EPOETIN ALFA-EPBX (ESRD) 3,000 UNIT/ML VIAL SC SCH (09:43)
[2020-12-03] MEDS: EPOETIN ALFA-EPBX (ESRD) 2,000 UNIT/ML VIAL SC SCH (09:43)
[2020-12-03] MEDS: Meropenem 500 MG in Sodium Chloride 0.9% 100 ML IVPB SCH (15:04)
[2020-12-04] MEDS: HumaLOG 300 UNITS/3 ML VIAL SC PRN ×6 (00:55→21:36)
[2020-12-04 04:30] LABS: INR-International Normal Ratio 2.4; Prothrombin Time 26.9 sec (12.0-14.7)
[2020-12-04 04:38] LABS: #Lymphocytes 1.3 thou/uL (1.20-3.40); #Monocytes 0.6 thou/uL (0.11-0.59); #Neutrophils 7.7 thou/uL (1.40-6.50); %Basophils 0.3 % (0.0-1.0); %Eosinophils 0.1 % (0.0-10.0); %Lymphocytes 13.5 % (21.0-51.0); %Monocytes 6.5 % (0.0-10.0); %Neutrophils 79.6 % (42.0-75.0); Hemoglobin 8.7 g/dL (12.0-16.0); Mean Corpuscular HGB CONC 30.7 g/dL (32.0-36.0); Mean Corpuscular Hemoglobin 30.6 pg (27.0-31.0); Mean Corpuscular Volume 99.9 fL (78.0-98.0); Mean Platelet Volume 9.6 fL (7.4-10.4); Platelet Count 66 thou/uL (130-400); RBC Distribution Width 20.1 % (11.5-14.5); Red Blood Cell (RBC) Count 2.84 mill/uL (4.20-5.40); White Blood Cell (WBC) Count 9.7 thou/uL (4.8-10.8)
[2020-12-04 05:01] LABS: Bilirubin, Total 31.8 mg/dL (0.2-1.2)
[2020-12-04 05:03] LABS: ALT (SGPT) 49 U/L (8-55); AST (SGOT) 121 U/L (5-34); Albumin 3.5 g/dL (3.5-5.0); Alkaline Phosphatase 125 U/L (40-110); Anion Gap 17 mmol/L (10-20); BUN (Urea Nitrogen) 41 mg/dL (7.0-18.7); Calc. Creatinine Clearance 30 mL/min (70-130); Calcium 10.2 mg/dL (7.8-10.44); Carbon Dioxide 25 mmol/L (22-29); Chloride 101 mmol/L (98-107); Globulin 2.1 g/dL (2.4-3.5); Glucose 220 mg/dL (70-105); Potassium 3.3 mmol/L (3.5-5.1); Protein, Total 5.6 g/dL (6.0-8.3); Sodium 140 mmol/L (136-145)
[2020-12-04] MEDS: Metoclopramide HCl 10 MG/2 ML VIAL IVP SCH ×3 (05:57→21:30)
[2020-12-04] MEDS ORDERED: Potassium Bicarbonate/Cit Ac 20 MEQ TAB PO SCH (07:45)
[2020-12-04] MEDS: Pantoprazole 40 MG VIAL IVP SCH ×2 (08:42→21:31)
[2020-12-04] MEDS: Fludrocortisone Acetate 0.1 MG TAB PO SCH (08:59)
[2020-12-04] MEDS: Nystatin 500,000 UNITS/5 ML UDCUP SSW SCH ×4 (09:00→21:30)
[2020-12-04] MEDS: Hydrocortisone Sod Succ/PF 100 mg/2 ml Vial IVP SCH ×2 (09:03→21:28)
[2020-12-04] MEDS: Midodrine HCl 5 MG TAB PO SCH ×2 (11:09→21:29)
[2020-12-04] MEDS: EPINEPHrine 4 MG in Dextrose 5% in Water 250 ML IV SCH (12:33)
[2020-12-04] MEDS ORDERED: Phytonadione 10 MG/ML AMP PO SCH (15:45)
[2020-12-04] MEDS: Meropenem 500 MG in Sodium Chloride 0.9% 100 ML IVPB SCH (16:21)
[2020-12-04 16:43] LABS: INR-International Normal Ratio 2.5; Prothrombin Time 27.3 sec (12.0-14.7)
[2020-12-05] MEDS: HumaLOG 300 UNITS/3 ML VIAL SC PRN ×2 (00:23→04:39)
[2020-12-05] MEDS: Ondansetron PF 4 MG/2 ML Vial IVP PRN (02:16)
[2020-12-05] MEDS: EPINEPHrine 4 MG in Dextrose 5% in Water 250 ML IV SCH (02:16)
[2020-12-05 04:47] LABS: Mean Corpuscular HGB CONC 31.9 g/dL (32.0-36.0); Mean Corpuscular Hemoglobin 31.9 pg (27.0-31.0); Mean Corpuscular Volume 99.9 fL (78.0-98.0); Mean Platelet Volume 9.2 fL (7.4-10.4); Platelet Count 84 thou/uL (130-400); RBC Distribution Width 20.3 % (11.5-14.5); Red Blood Cell (RBC) Count 2.81 mill/uL (4.20-5.40); White Blood Cell (WBC) Count 9.7 thou/uL (4.8-10.8)
[2020-12-05 05:10] LABS: ALT (SGPT) 51 U/L (8-55); AST (SGOT) 99 U/L (5-34); Albumin 3.2 g/dL (3.5-5.0); Alkaline Phosphatase 124 U/L (40-110); Anion Gap 20 mmol/L (10-20); BUN (Urea Nitrogen) 58 mg/dL (7.0-18.7); Calc. Creatinine Clearance 23 mL/min (70-130); Calcium 10.2 mg/dL (7.8-10.44); Carbon Dioxide 23 mmol/L (22-29); Chloride 101 mmol/L (98-107); Globulin 2.1 g/dL (2.4-3.5); Glucose 222 mg/dL (70-105); Potassium 3.2 mmol/L (3.5-5.1); Protein, Total 5.3 g/dL (6.0-8.3); Sodium 141 mmol/L (136-145)
[2020-12-05 05:12] LABS: Band 4 % (5-11); Lymphocytes 6 % (21-51); MDiff Complete? YES; Monocytes 8 % (0-10); Neutrophil 82 % (42-75); Platelet Morphology Comment Appears Decreased
[2020-12-05 05:19] LABS: Bilirubin, Total 31.2 mg/dL (0.2-1.2)
[2020-12-05] MEDS: Metoclopramide HCl 10 MG/2 ML VIAL IVP SCH ×3 (05:39→21:44)
[2020-12-05] MEDS ORDERED: Potassium Chloride 20 MEQ TAB PER TUBE SCH (06:00)
[2020-12-05 07:55] LABS: INR-International Normal Ratio 2.2; Prothrombin Time 25.3 sec (12.0-14.7)
[2020-12-05] MEDS ORDERED: Phytonadione 5 MG TAB PER TUBE SCH (09:00)
[2020-12-05] MEDS: EPOETIN ALFA-EPBX (ESRD) 3,000 UNIT/ML VIAL SC SCH (09:46)
[2020-12-05] MEDS: EPOETIN ALFA-EPBX (ESRD) 2,000 UNIT/ML VIAL SC SCH (09:47)
[2020-12-05] MEDS: Hydrocortisone Sod Succ/PF 100 mg/2 ml Vial IVP SCH ×2 (09:49→21:43)
[2020-12-05] MEDS: Nystatin 500,000 UNITS/5 ML UDCUP SSW SCH ×4 (09:50→21:44)
[2020-12-05] MEDS: Midodrine HCl 5 MG TAB PO SCH ×2 (09:50→21:44)
[2020-12-05] MEDS: Pantoprazole 40 MG VIAL IVP SCH ×2 (09:50→21:44)
[2020-12-05] MEDS: Fludrocortisone Acetate 0.1 MG TAB PO SCH (09:51)
[2020-12-05] MEDS ORDERED: Albumin 25% 25 GM/100 ML BOT IVPB PRN (12:57)
[2020-12-05] MEDS: Meropenem 500 MG in Sodium Chloride 0.9% 100 ML IVPB SCH (16:31)
[2020-12-06 05:03] LABS: INR-International Normal Ratio 2.1; Prothrombin Time 24.4 sec (12.0-14.7)
[2020-12-06 05:23] LABS: ALT (SGPT) 47 U/L (8-55); AST (SGOT) 94 U/L (5-34); Albumin 2.9 g/dL (3.5-5.0); Alkaline Phosphatase 113 U/L (40-110); Anion Gap 17 mmol/L (10-20); BUN (Urea Nitrogen) 39 mg/dL (7.0-18.7); Calc. Creatinine Clearance 34 mL/min (70-130); Carbon Dioxide 28 mmol/L (22-29); Chloride 101 mmol/L (98-107); Globulin 1.8 g/dL (2.4-3.5); Glucose 202 mg/dL (70-105); Potassium 3.9 mmol/L (3.5-5.1); Protein, Total 4.7 g/dL (6.0-8.3); Sodium 142 mmol/L (136-145)
[2020-12-06 05:33] LABS: Band 4 % (5-11); Hemoglobin 9.1 g/dL (12.0-16.0); Lymphocytes 3 % (21-51); MDiff Complete? YES; Mean Corpuscular HGB CONC 31.3 g/dL (32.0-36.0); Mean Corpuscular Hemoglobin 31.5 pg (27.0-31.0); Monocytes 7 % (0-10); Neutrophil 86 % (42-75); Nucleated RBC 1 % (0); Platelet Count 87 thou/uL (130-400); Platelet Morphology Comment Appears Decreased; Polychromasia SLIGHT = 2-3 cells (100X) (0-2/hpf); RBC Distribution Width 20.6 % (11.5-14.5); Red Blood Cell (RBC) Count 2.89 mill/uL (4.20-5.40); White Blood Cell (WBC) Count 12.4 thou/uL (4.8-10.8)
[2020-12-06] MEDS: Metoclopramide HCl 10 MG/2 ML VIAL IVP SCH ×3 (05:33→21:30)
[2020-12-06] MEDS: Phytonadione 5 MG TAB PER TUBE SCH (09:42)
[2020-12-06] MEDS: Midodrine HCl 5 MG TAB PO SCH ×2 (09:42→21:31)
[2020-12-06] MEDS: Nystatin 500,000 UNITS/5 ML UDCUP SSW SCH ×4 (09:43→21:32)
[2020-12-06] MEDS: Fludrocortisone Acetate 0.1 MG TAB PO SCH (09:43)
[2020-12-06] MEDS: Pantoprazole 40 MG VIAL IVP SCH ×2 (09:44→21:31)
[2020-12-06] MEDS: Hydrocortisone Sod Succ/PF 100 mg/2 ml Vial IVP SCH ×2 (09:44→21:31)
[2020-12-06] MEDS: Meropenem 500 MG in Sodium Chloride 0.9% 100 ML IVPB SCH (15:37)
[2020-12-07 04:17] LABS: INR-International Normal Ratio 2.1; Prothrombin Time 24.4 sec (12.0-14.7)
[2020-12-07 04:29] LABS: ALT (SGPT) 52 U/L (8-55); AST (SGOT) 91 U/L (5-34); Albumin 2.8 g/dL (3.5-5.0); Alkaline Phosphatase 121 U/L (40-110); Anion Gap 19 mmol/L (10-20); BUN (Urea Nitrogen) 60 mg/dL (7.0-18.7); Calc. Creatinine Clearance 26 mL/min (70-130); Calcium 9.7 mg/dL (7.8-10.44); Carbon Dioxide 26 mmol/L (22-29); Chloride 100 mmol/L (98-107); Globulin 1.9 g/dL (2.4-3.5); Glucose 220 mg/dL (70-105); Potassium 3.5 mmol/L (3.5-5.1); Protein, Total 4.7 g/dL (6.0-8.3); Sodium 141 mmol/L (136-145)
[2020-12-07 04:40] LABS: Bilirubin, Total 31.2 mg/dL (0.2-1.2)
[2020-12-07 04:47] LABS: Hemoglobin 9.8 g/dL (12.0-16.0); Mean Corpuscular HGB CONC 31.5 g/dL (32.0-36.0); Mean Corpuscular Hemoglobin 31.9 pg (27.0-31.0); Mean Platelet Volume 9.1 fL (7.4-10.4); Platelet Count 108 thou/uL (130-400); RBC Distribution Width 20.8 % (11.5-14.5); Red Blood Cell (RBC) Count 3.09 mill/uL (4.20-5.40); White Blood Cell (WBC) Count 12.8 thou/uL (4.8-10.8)
[2020-12-07 05:50] LABS: #Lymphocytes 0.8 thou/uL (1.20-3.40); #Monocytes 0.8 thou/uL (0.11-0.59); #Neutrophils 11.1 thou/uL (1.40-6.50); %Basophils 0.1 % (0.0-1.0); %Eosinophils 0.1 % (0.0-10.0); %Lymphocytes 6.5 % (21.0-51.0); %Monocytes 6.2 % (0.0-10.0); %Neutrophils 87.2 % (42.0-75.0); Anisocytosis MODERATE=16-30 cells (100X) (0-5/hpf); MDiff Complete? YES; Platelet Morphology Comment Appears Decreased; Polychromasia SLIGHT = 2-3 cells (100X) (0-2/hpf)
[2020-12-07] MEDS: EPINEPHrine 4 MG in Dextrose 5% in Water 250 ML IV SCH (06:01)
[2020-12-07] MEDS: Metoclopramide HCl 10 MG/2 ML VIAL IVP SCH ×3 (06:01→22:48)
[2020-12-07] MEDS: Hydrocortisone Sod Succ/PF 100 mg/2 ml Vial IVP SCH ×2 (09:37→20:14)
[2020-12-07] MEDS: Nystatin 500,000 UNITS/5 ML UDCUP SSW SCH ×4 (09:38→20:14)
[2020-12-07] MEDS: Pantoprazole 40 MG VIAL IVP SCH ×2 (09:39→20:14)
[2020-12-07] MEDS: Midodrine HCl 5 MG TAB PO SCH ×2 (09:43→20:15)
[2020-12-07] MEDS: Fludrocortisone Acetate 0.1 MG TAB PO SCH (09:44)
[2020-12-07] MEDS: Phytonadione 5 MG TAB PER TUBE SCH (09:58)
[2020-12-07] MEDS: Meropenem 500 MG in Sodium Chloride 0.9% 100 ML IVPB SCH (17:06)
[2020-12-07] MEDS: HumaLOG 300 UNITS/3 ML VIAL SC PRN ×3 (17:37→23:45)
[2020-12-08 04:13] LABS: Prothrombin Time 23.3 sec (12.0-14.7)
[2020-12-08 04:31] LABS: #Basophils 0.1 thou/uL (0.0-0.2); #Lymphocytes 0.7 thou/uL (1.20-3.40); #Monocytes 0.9 thou/uL (0.11-0.59); #Neutrophils 13.1 thou/uL (1.40-6.50); %Basophils 0.4 % (0.0-1.0); %Lymphocytes 4.9 % (21.0-51.0); %Monocytes 5.9 % (0.0-10.0); %Neutrophils 88.8 % (42.0-75.0); Hemoglobin 10.3 g/dL (12.0-16.0); Mean Corpuscular Hemoglobin 32.4 pg (27.0-31.0); Mean Platelet Volume 8.9 fL (7.4-10.4); Platelet Count 111 thou/uL (130-400); RBC Distribution Width 20.9 % (11.5-14.5); Red Blood Cell (RBC) Count 3.17 mill/uL (4.20-5.40); White Blood Cell (WBC) Count 14.8 thou/uL (4.8-10.8)
[2020-12-08 04:38] LABS: Bilirubin, Total 33.7 mg/dL (0.2-1.2)
[2020-12-08 05:38] LABS: ALT (SGPT) 56 U/L (8-55); AST (SGOT) 93 U/L (5-34); Albumin 2.7 g/dL (3.5-5.0); Alkaline Phosphatase 116 U/L (40-110); Anion Gap 19 mmol/L (10-20); BUN (Urea Nitrogen) 84 mg/dL (7.0-18.7); Calc. Creatinine Clearance 20 mL/min (70-130); Calcium 9.5 mg/dL (7.8-10.44); Carbon Dioxide 27 mmol/L (22-29); Chloride 102 mmol/L (98-107); Globulin 1.9 g/dL (2.4-3.5); Glucose 179 mg/dL (70-105); Potassium 3.8 mmol/L (3.5-5.1); Protein, Total 4.6 g/dL (6.0-8.3); Sodium 144 mmol/L (136-145)
[2020-12-08] MEDS: Metoclopramide HCl 10 MG/2 ML VIAL IVP SCH ×3 (05:39→21:58)
[2020-12-08] MEDS: HumaLOG 300 UNITS/3 ML VIAL SC PRN ×3 (06:08→22:21)
[2020-12-08] MEDS: Phytonadione 5 MG TAB PER TUBE SCH (09:16)
[2020-12-08] MEDS: EPOETIN ALFA-EPBX (ESRD) 3,000 UNIT/ML VIAL SC SCH (09:16)
[2020-12-08] MEDS: EPOETIN ALFA-EPBX (ESRD) 2,000 UNIT/ML VIAL SC SCH (09:16)
[2020-12-08] MEDS: Pantoprazole 40 MG VIAL IVP SCH ×2 (09:17→21:54)
[2020-12-08] MEDS: Hydrocortisone Sod Succ/PF 100 mg/2 ml Vial IVP SCH ×2 (09:17→21:53)
[2020-12-08] MEDS: Fludrocortisone Acetate 0.1 MG TAB PO SCH (09:18)
[2020-12-08] MEDS: Nystatin 500,000 UNITS/5 ML UDCUP SSW SCH ×4 (09:18→21:57)
[2020-12-08] MEDS: Midodrine HCl 5 MG TAB PO SCH ×2 (09:30→21:57)
[2020-12-08] MEDS ORDERED: Cinacalcet HCl 30 MG TAB PO SCH (11:00)
[2020-12-08] MEDS: Meropenem 500 MG in Sodium Chloride 0.9% 100 ML IVPB SCH (17:10)
[2020-12-09] MEDS: HumaLOG 300 UNITS/3 ML VIAL SC PRN ×4 (00:54→21:19)
[2020-12-09] MEDS: EPINEPHrine 4 MG in Dextrose 5% in Water 250 ML IV SCH ×2 (02:02→21:07)
[2020-12-09 04:41] LABS: #Neutrophils 11.5 thou/uL (1.40-6.50); %Basophils 0.3 % (0.0-1.0); %Eosinophils 0.2 % (0.0-10.0); %Lymphocytes 7.2 % (21.0-51.0); %Monocytes 7.1 % (0.0-10.0); %Neutrophils 85.3 % (42.0-75.0); Hemoglobin 10.3 g/dL (12.0-16.0); Mean Corpuscular HGB CONC 31.3 g/dL (32.0-36.0); Mean Corpuscular Hemoglobin 31.9 pg (27.0-31.0); Mean Platelet Volume 9.2 fL (7.4-10.4); Platelet Count 98 thou/uL (130-400); RBC Distribution Width 21.4 % (11.5-14.5); Red Blood Cell (RBC) Count 3.22 mill/uL (4.20-5.40); White Blood Cell (WBC) Count 13.5 thou/uL (4.8-10.8)
[2020-12-09 04:54] LABS: Anion Gap 21 mmol/L (10-20); BUN (Urea Nitrogen) 52 mg/dL (7.0-18.7); Calc. Creatinine Clearance 30 mL/min (70-130); Calcium 9.1 mg/dL (7.8-10.44); Carbon Dioxide 24 mmol/L (22-29); Chloride 101 mmol/L (98-107); Glucose 192 mg/dL (70-105); Potassium 3.2 mmol/L (3.5-5.1); Sodium 143 mmol/L (136-145)
[2020-12-09] MEDS: Metoclopramide HCl 10 MG/2 ML VIAL IVP SCH ×3 (06:01→21:28)
[2020-12-09] MEDS ORDERED: Fentanyl 100 MCG/2 ML VIAL SLOW IVP SCH (06:15)
[2020-12-09] MEDS ORDERED: Fentanyl 100 MCG/2 ML VIAL ONE (07:28)
[2020-12-09] MEDS ORDERED: Cinacalcet HCl 30 MG TAB PO SCH (08:00)
[2020-12-09] MEDS: Potassium Bicarbonate/Cit Ac 20 MEQ TAB PER TUBE SCH ×2 (08:22→16:23)
[2020-12-09] MEDS: Nystatin 500,000 UNITS/5 ML UDCUP SSW SCH ×4 (08:22→21:30)
[2020-12-09] MEDS: Midodrine HCl 5 MG TAB PO SCH ×2 (08:22→21:28)
[2020-12-09] MEDS: Fludrocortisone Acetate 0.1 MG TAB PO SCH (08:23)
[2020-12-09] MEDS: Pantoprazole 40 MG VIAL IVP SCH ×2 (08:23→21:30)
[2020-12-09] MEDS: Hydrocortisone Sod Succ/PF 100 mg/2 ml Vial IVP SCH ×2 (08:33→21:28)
[2020-12-09] MEDS: Phytonadione 5 MG TAB PER TUBE SCH (09:17)
[2020-12-10] MEDS: HumaLOG 300 UNITS/3 ML VIAL SC PRN ×4 (01:47→20:05)
[2020-12-10 04:11] LABS: #Lymphocytes 0.6 thou/uL (1.20-3.40); #Monocytes 0.7 thou/uL (0.11-0.59); #Neutrophils 10.9 thou/uL (1.40-6.50); %Basophils 0.2 % (0.0-1.0); %Eosinophils 0.1 % (0.0-10.0); %Lymphocytes 4.8 % (21.0-51.0); %Monocytes 5.3 % (0.0-10.0); %Neutrophils 89.5 % (42.0-75.0); Hemoglobin 10.1 g/dL (12.0-16.0); Mean Corpuscular HGB CONC 31.2 g/dL (32.0-36.0); Mean Corpuscular Hemoglobin 31.6 pg (27.0-31.0); Platelet Count 77 thou/uL (130-400); RBC Distribution Width 20.6 % (11.5-14.5); White Blood Cell (WBC) Count 12.2 thou/uL (4.8-10.8)
[2020-12-10 04:38] LABS: Bilirubin, Total 39.1 mg/dL (0.2-1.2)
[2020-12-10 04:41] LABS: ALT (SGPT) 55 U/L (8-55); AST (SGOT) 80 U/L (5-34); Albumin 2.7 g/dL (3.5-5.0); Alkaline Phosphatase 122 U/L (40-110); Anion Gap 22 mmol/L (10-20); BUN (Urea Nitrogen) 82 mg/dL (7.0-18.7); CRP (Inflammatory) 1.09 mg/dL (= or < 0.5); Calc. Creatinine Clearance 22 mL/min (70-130); Carbon Dioxide 25 mmol/L (22-29); Chloride 102 mmol/L (98-107); Glucose 185 mg/dL (70-105); Potassium 3.9 mmol/L (3.5-5.1); Protein, Total 4.7 g/dL (6.0-8.3); Sodium 145 mmol/L (136-145)
[2020-12-10] MEDS: Metoclopramide HCl 10 MG/2 ML VIAL IVP SCH ×4 (07:12→23:53)
[2020-12-10] MEDS: Potassium Bicarbonate/Cit Ac 20 MEQ TAB PER TUBE SCH ×2 (08:48→16:13)
[2020-12-10] MEDS: Hydrocortisone Sod Succ/PF 100 mg/2 ml Vial IVP SCH ×2 (08:49→20:00)
[2020-12-10] MEDS: Midodrine HCl 5 MG TAB PO SCH ×2 (08:49→20:00)
[2020-12-10] MEDS: EPOETIN ALFA-EPBX (ESRD) 3,000 UNIT/ML VIAL SC SCH (08:50)
[2020-12-10] MEDS: Cinacalcet HCl 30 MG TAB PO SCH (08:50)
[2020-12-10] MEDS: EPOETIN ALFA-EPBX (ESRD) 2,000 UNIT/ML VIAL SC SCH (08:51)
[2020-12-10] MEDS: Pantoprazole 40 MG VIAL IVP SCH ×2 (08:52→20:00)
[2020-12-10] MEDS: Fludrocortisone Acetate 0.1 MG TAB PO SCH (09:05)
[2020-12-10] MEDS: Nystatin 500,000 UNITS/5 ML UDCUP SSW SCH ×4 (09:05→20:00)
[2020-12-10] MEDS: EPINEPHrine 4 MG in Dextrose 5% in Water 250 ML IV SCH (17:40)
[2020-12-10] MEDS ORDERED: Fentanyl 100 MCG/2 ML VIAL SLOW IVP SCH (22:15)
[2020-12-11] MEDS: HumaLOG 300 UNITS/3 ML VIAL SC PRN ×5 (00:26→21:29)
[2020-12-11] MEDS ORDERED: Fentanyl 100 MCG/2 ML VIAL SLOW IVP SCH (03:30)
[2020-12-11 05:11] LABS: ALT (SGPT) 60 U/L (8-55); AST (SGOT) 91 U/L (5-34); Albumin 2.7 g/dL (3.5-5.0); Alkaline Phosphatase 128 U/L (40-110); Anion Gap 20 mmol/L (10-20); BUN (Urea Nitrogen) 48 mg/dL (7.0-18.7); Calc. Creatinine Clearance 34 mL/min (70-130); Calcium 9.3 mg/dL (7.8-10.44); Carbon Dioxide 29 mmol/L (22-29); Chloride 98 mmol/L (98-107); Glucose 191 mg/dL (70-105); Potassium 3.9 mmol/L (3.5-5.1); Protein, Total 4.7 g/dL (6.0-8.3); Sodium 143 mmol/L (136-145)
[2020-12-11 05:12] LABS: #Lymphocytes 0.9 thou/uL (1.20-3.40); #Monocytes 0.7 thou/uL (0.11-0.59); #Neutrophils 12.3 thou/uL (1.40-6.50); %Basophils 0.1 % (0.0-1.0); %Eosinophils 0.1 % (0.0-10.0); %Lymphocytes 6.6 % (21.0-51.0); %Neutrophils 88.2 % (42.0-75.0); Anisocytosis MODERATE=16-30 cells (100X) (0-5/hpf); Hemoglobin 10.4 g/dL (12.0-16.0); MDiff Complete? YES; Macrocytosis MODERATE=16-30 cells (100X) (0-5/hpf); Mean Corpuscular HGB CONC 31.3 g/dL (32.0-36.0); Mean Corpuscular Hemoglobin 31.9 pg (27.0-31.0); Mean Platelet Volume 9.2 fL (7.4-10.4); Platelet Count 71 thou/uL (130-400); Platelet Morphology Comment Appears Decreased; RBC Distribution Width 20.6 % (11.5-14.5); Red Blood Cell (RBC) Count 3.27 mill/uL (4.20-5.40); White Blood Cell (WBC) Count 13.9 thou/uL (4.8-10.8)
[2020-12-11 05:19] LABS: Bilirubin, Total 40.9 mg/dL (0.2-1.2)
[2020-12-11] MEDS: Metoclopramide HCl 10 MG/2 ML VIAL IVP SCH ×3 (05:54→22:17)
[2020-12-11] MEDS: EPINEPHrine 4 MG in Dextrose 5% in Water 250 ML IV SCH (08:19)
[2020-12-11] MEDS: Pantoprazole 40 MG VIAL IVP SCH ×2 (08:50→20:07)
[2020-12-11] MEDS: Potassium Bicarbonate/Cit Ac 20 MEQ TAB PER TUBE SCH ×2 (08:50→16:21)
[2020-12-11] MEDS: Cinacalcet HCl 30 MG TAB PO SCH (08:50)
[2020-12-11] MEDS: Fludrocortisone Acetate 0.1 MG TAB PO SCH (08:51)
[2020-12-11] MEDS: Hydrocortisone Sod Succ/PF 100 mg/2 ml Vial IVP SCH ×2 (08:52→20:06)
[2020-12-11] MEDS: Nystatin 500,000 UNITS/5 ML UDCUP SSW SCH ×4 (08:53→20:07)
[2020-12-11] MEDS: Midodrine HCl 5 MG TAB PO SCH ×2 (08:58→20:07)
[2020-12-11] MEDS: Acetaminophen 500 MG TAB PO PRN (22:34)
[2020-12-12] MEDS: HumaLOG 300 UNITS/3 ML VIAL SC PRN ×4 (01:06→20:07)
[2020-12-12 05:56] LABS: #Lymphocytes 0.6 thou/uL (1.20-3.40); #Monocytes 0.5 thou/uL (0.11-0.59); #Neutrophils 9.2 thou/uL (1.40-6.50); %Basophils 0.3 % (0.0-1.0); %Eosinophils 0.1 % (0.0-10.0); %Lymphocytes 6.1 % (21.0-51.0); %Neutrophils 88.5 % (42.0-75.0); Hemoglobin 10.8 g/dL (12.0-16.0); Mean Corpuscular HGB CONC 32.4 g/dL (32.0-36.0); Mean Corpuscular Hemoglobin 33.3 pg (27.0-31.0); Mean Platelet Volume 9.4 fL (7.4-10.4); Platelet Count 61 thou/uL (130-400); RBC Distribution Width 20.3 % (11.5-14.5); Red Blood Cell (RBC) Count 3.23 mill/uL (4.20-5.40); White Blood Cell (WBC) Count 10.4 thou/uL (4.8-10.8)
[2020-12-12 06:19] LABS: Bilirubin, Total 44.8 mg/dL (0.2-1.2)
[2020-12-12 06:28] LABS: ALT (SGPT) 59 U/L (8-55); AST (SGOT) 85 U/L (5-34); Albumin 2.8 g/dL (3.5-5.0); Alkaline Phosphatase 126 U/L (40-110); Anion Gap 22 mmol/L (10-20); BUN (Urea Nitrogen) 78 mg/dL (7.0-18.7); Calc. Creatinine Clearance 24 mL/min (70-130); Calcium 8.6 mg/dL (7.8-10.44); Carbon Dioxide 28 mmol/L (22-29); Chloride 98 mmol/L (98-107); Glucose 184 mg/dL (70-105); Potassium 4.6 mmol/L (3.5-5.1); Protein, Total 4.8 g/dL (6.0-8.3); Sodium 143 mmol/L (136-145)
[2020-12-12] MEDS: Metoclopramide HCl 10 MG/2 ML VIAL IVP SCH ×3 (06:35→21:10)
[2020-12-12] MEDS: Hydrocortisone Sod Succ/PF 100 mg/2 ml Vial IVP SCH ×2 (09:29→20:06)
[2020-12-12] MEDS: Potassium Bicarbonate/Cit Ac 20 MEQ TAB PER TUBE SCH ×2 (09:30→16:44)
[2020-12-12] MEDS: Cinacalcet HCl 30 MG TAB PO SCH (09:30)
[2020-12-12] MEDS: Acetaminophen 500 MG TAB PO PRN (09:31)
[2020-12-12] MEDS: Fludrocortisone Acetate 0.1 MG TAB PO SCH (09:35)
[2020-12-12] MEDS: Pantoprazole 40 MG VIAL IVP SCH ×2 (09:37→20:06)
[2020-12-12] MEDS: Nystatin 500,000 UNITS/5 ML UDCUP SSW SCH ×4 (09:37→20:06)
[2020-12-12] MEDS: Midodrine HCl 5 MG TAB PO SCH ×2 (09:55→20:06)
[2020-12-12] MEDS: EPOETIN ALFA-EPBX (ESRD) 3,000 UNIT/ML VIAL SC SCH (13:06)
[2020-12-12] MEDS: EPOETIN ALFA-EPBX (ESRD) 2,000 UNIT/ML VIAL SC SCH (13:07)
[2020-12-12] MEDS: Lidocaine 5% Patch TD SCH (13:22)
[2020-12-12] MEDS: HYDROcodone/Acetaminophen 5/325 mg Tablet PO PRN (21:06)
[2020-12-12] MEDS: Transdermal Patch Removal TOP SCH (23:27)
[2020-12-12] MEDS: EPINEPHrine 4 MG in Dextrose 5% in Water 250 ML IV SCH (23:27)
[2020-12-13] MEDS: HumaLOG 300 UNITS/3 ML VIAL SC PRN ×5 (00:59→20:45)
[2020-12-13 05:02] LABS: #Lymphocytes 0.7 thou/uL (1.20-3.40); #Monocytes 0.5 thou/uL (0.11-0.59); #Neutrophils 11.5 thou/uL (1.40-6.50); %Basophils 0.1 % (0.0-1.0); %Eosinophils 0.1 % (0.0-10.0); %Lymphocytes 5.7 % (21.0-51.0); %Neutrophils 90.2 % (42.0-75.0); Hemoglobin 10.9 g/dL (12.0-16.0); Mean Corpuscular HGB CONC 30.6 g/dL (32.0-36.0); Mean Corpuscular Hemoglobin 31.6 pg (27.0-31.0); Mean Platelet Volume 10.5 fL (7.4-10.4); Platelet Count 43 thou/uL (130-400); RBC Distribution Width 19.9 % (11.5-14.5); Red Blood Cell (RBC) Count 3.45 mill/uL (4.20-5.40); White Blood Cell (WBC) Count 12.7 thou/uL (4.8-10.8)
[2020-12-13 05:34] LABS: Bilirubin, Total 46.2 mg/dL (0.2-1.2)
[2020-12-13 05:37] LABS: ALT (SGPT) 68 U/L (8-55); AST (SGOT) 89 U/L (5-34); Albumin 2.7 g/dL (3.5-5.0); Alkaline Phosphatase 138 U/L (40-110); Anion Gap 22 mmol/L (10-20); BUN (Urea Nitrogen) 58 mg/dL (7.0-18.7); Calc. Creatinine Clearance 32 mL/min (70-130); Calcium 9.1 mg/dL (7.8-10.44); Carbon Dioxide 26 mmol/L (22-29); Chloride 98 mmol/L (98-107); Globulin 2.2 g/dL (2.4-3.5); Glucose 175 mg/dL (70-105); Potassium 4.5 mmol/L (3.5-5.1); Protein, Total 4.9 g/dL (6.0-8.3); Sodium 141 mmol/L (136-145)
[2020-12-13] MEDS: Metoclopramide HCl 10 MG/2 ML VIAL IVP SCH ×3 (05:46→21:15)
[2020-12-13] MEDS: Hydrocortisone Sod Succ/PF 100 mg/2 ml Vial IVP SCH (09:45)
[2020-12-13] MEDS: Nystatin 500,000 UNITS/5 ML UDCUP SSW SCH ×2 (09:46→13:10)
[2020-12-13] MEDS: Cinacalcet HCl 30 MG TAB PO SCH (09:47)
[2020-12-13] MEDS: Potassium Bicarbonate/Cit Ac 20 MEQ TAB PER TUBE SCH ×2 (09:47→16:01)
[2020-12-13] MEDS: Pantoprazole 40 MG VIAL IVP SCH (09:47)
[2020-12-13] MEDS: Midodrine HCl 5 MG TAB PO SCH ×3 (09:48→21:15)
[2020-12-13] MEDS: Lidocaine 5% Patch TD SCH (09:53)
[2020-12-13] MEDS: Fludrocortisone Acetate 0.1 MG TAB PO SCH (10:19)
[2020-12-13] MEDS: EPINEPHrine 4 MG in Dextrose 5% in Water 250 ML IV SCH (20:40)
[2020-12-13] MEDS: Ondansetron PF 4 MG/2 ML Vial IVP PRN (23:42)
[2020-12-13] MEDS: Transdermal Patch Removal TOP SCH (23:47)
[2020-12-13] MEDS: HYDROcodone/Acetaminophen 5/325 mg Tablet PO PRN (23:53)
[2020-12-14] MEDS: HumaLOG 300 UNITS/3 ML VIAL SC PRN (04:29)
[2020-12-14 04:40] LABS: #Basophils 0.1 thou/uL (0.0-0.2); #Lymphocytes 0.5 thou/uL (1.20-3.40); #Monocytes 0.5 thou/uL (0.11-0.59); #Neutrophils 8.7 thou/uL (1.40-6.50); %Basophils 0.9 % (0.0-1.0); %Eosinophils 0.1 % (0.0-10.0); %Lymphocytes 5.3 % (21.0-51.0); %Monocytes 4.8 % (0.0-10.0); %Neutrophils 88.9 % (42.0-75.0); Hemoglobin 10.5 g/dL (12.0-16.0); Mean Corpuscular HGB CONC 30.9 g/dL (32.0-36.0); Mean Corpuscular Hemoglobin 31.9 pg (27.0-31.0); Mean Platelet Volume 10.4 fL (7.4-10.4); Platelet Count 32 thou/uL (130-400); Red Blood Cell (RBC) Count 3.28 mill/uL (4.20-5.40); White Blood Cell (WBC) Count 9.8 thou/uL (4.8-10.8)
[2020-12-14 05:08] LABS: ALT (SGPT) 71 U/L (8-55); AST (SGOT) 90 U/L (5-34); Albumin 2.8 g/dL (3.5-5.0); Alkaline Phosphatase 130 U/L (40-110); Anion Gap 23 mmol/L (10-20); BUN (Urea Nitrogen) 82 mg/dL (7.0-18.7); Calc. Creatinine Clearance 24 mL/min (70-130); Carbon Dioxide 27 mmol/L (22-29); Chloride 98 mmol/L (98-107); Glucose 193 mg/dL (70-105); Potassium 4.6 mmol/L (3.5-5.1); Protein, Total 4.8 g/dL (6.0-8.3); Sodium 143 mmol/L (136-145)
[2020-12-14 05:10] LABS: Bilirubin, Total 50.6 mg/dL (0.2-1.2)
[2020-12-14] MEDS: Metoclopramide HCl 10 MG/2 ML VIAL IVP SCH ×3 (05:45→20:27)
[2020-12-14] MEDS: Cinacalcet HCl 30 MG TAB PO SCH (08:52)
[2020-12-14] MEDS: Hydrocortisone 10 mg Tablet PO SCH ×2 (08:53→20:27)
[2020-12-14] MEDS: Fludrocortisone Acetate 0.1 MG TAB PO SCH (08:53)
[2020-12-14] MEDS: Potassium Bicarbonate/Cit Ac 20 MEQ TAB PER TUBE SCH ×2 (08:53→18:25)
[2020-12-14] MEDS: Midodrine HCl 5 MG TAB PO SCH ×3 (08:53→20:27)
[2020-12-14] MEDS: Pantoprazole 40 MG GRANULES PACKET PER TUBE SCH (08:54)
[2020-12-14] MEDS: Lidocaine 5% Patch TD SCH (11:22)
[2020-12-15] MEDS: Metoclopramide HCl 10 MG/2 ML VIAL IVP SCH ×3 (06:46→21:28)
[2020-12-15 07:14] LABS: #Eosinphils 0.1 thou/uL (0.0-0.7); #Lymphocytes 0.9 thou/uL (1.20-3.40); #Monocytes 0.3 thou/uL (0.11-0.59); #Neutrophils 11.8 thou/uL (1.40-6.50); %Basophils 0.2 % (0.0-1.0); %Eosinophils 0.5 % (0.0-10.0); %Lymphocytes 6.9 % (21.0-51.0); %Monocytes 2.2 % (0.0-10.0); %Neutrophils 90.2 % (42.0-75.0); Hemoglobin 12.1 g/dL (12.0-16.0); Mean Corpuscular Hemoglobin 33.9 pg (27.0-31.0); Platelet Count 32 thou/uL (130-400); RBC Distribution Width 19.8 % (11.5-14.5); Red Blood Cell (RBC) Count 3.58 mill/uL (4.20-5.40); White Blood Cell (WBC) Count 13.1 thou/uL (4.8-10.8)
[2020-12-15 07:32] LABS: ALT (SGPT) 86 U/L (8-55); AST (SGOT) 127 U/L (5-34); Albumin 2.5 g/dL (3.5-5.0); Alkaline Phosphatase 130 U/L (40-110); Anion Gap 26 mmol/L (10-20); BUN (Urea Nitrogen) 99 mg/dL (7.0-18.7); Calc. Creatinine Clearance 0 mL/min (70-130); Calcium 8.6 mg/dL (7.8-10.44); Carbon Dioxide 21 mmol/L (22-29); Chloride 98 mmol/L (98-107); Globulin 2.5 g/dL (2.4-3.5); Glucose 107 mg/dL (70-105); Potassium 5.6 mmol/L (3.5-5.1); Sodium 139 mmol/L (136-145)
[2020-12-15 07:41] LABS: Bilirubin, Total 46.8 mg/dL (0.2-1.2)
[2020-12-15 12:38] LABS: Burr Cells SLIGHT = 2-5 cells (100X) (0-1/hpf); Platelet Morphology Comment Appears Decreased; Polychromasia SLIGHT = 2-3 cells (100X) (0-2/hpf); Schistocytes SLIGHT = 2-5 cells (100X) (0-1/hpf)
[2020-12-15] MEDS: Midodrine HCl 5 MG TAB PO SCH ×3 (14:18→20:17)
[2020-12-15] MEDS: Lidocaine 5% Patch TD SCH (14:19)
[2020-12-15] MEDS: Cinacalcet HCl 30 MG TAB PO SCH (15:01)
[2020-12-15] MEDS: Potassium Bicarbonate/Cit Ac 20 MEQ TAB PER TUBE SCH ×2 (15:01→15:02)
[2020-12-15] MEDS: Fludrocortisone Acetate 0.1 MG TAB PO SCH (15:02)
[2020-12-15] MEDS: Hydrocortisone 10 mg Tablet PO SCH ×2 (15:02→20:17)
[2020-12-15] MEDS: Pantoprazole 40 MG GRANULES PACKET PER TUBE SCH (15:03)
[2020-12-15] MEDS: EPOETIN ALFA-EPBX (ESRD) 2,000 UNIT/ML VIAL SC SCH (15:25)
[2020-12-15] MEDS: EPOETIN ALFA-EPBX (ESRD) 3,000 UNIT/ML VIAL SC SCH (15:26)
[2020-12-15] MEDS: Transdermal Patch Removal TOP SCH ×2 (19:41→22:06)
[2020-12-15] MEDS: Acetaminophen 325 MG TAB PO PRN (21:27)
[2020-12-16] MEDS: Metoclopramide HCl 10 MG/2 ML VIAL IVP SCH (04:52)
[2020-12-16 07:23] LABS: ALT (SGPT) 78 U/L (8-55); AST (SGOT) 96 U/L (5-34); Albumin 2.3 g/dL (3.5-5.0); Alkaline Phosphatase 133 U/L (40-110); Anion Gap 18 mmol/L (10-20); BUN (Urea Nitrogen) 48 mg/dL (7.0-18.7); Calc. Creatinine Clearance 29 mL/min (70-130); Calcium 8.2 mg/dL (7.8-10.44); Carbon Dioxide 27 mmol/L (22-29); Chloride 99 mmol/L (98-107); Globulin 2.1 g/dL (2.4-3.5); Glucose 108 mg/dL (70-105); Potassium 4.2 mmol/L (3.5-5.1); Protein, Total 4.4 g/dL (6.0-8.3); Sodium 140 mmol/L (136-145)
[2020-12-16 07:31] LABS: Bilirubin, Total 46.3 mg/dL (0.2-1.2)
[2020-12-16] MEDS: Cinacalcet HCl 30 MG TAB PO SCH (08:24)
[2020-12-16] MEDS: Potassium Bicarbonate/Cit Ac 20 MEQ TAB PER TUBE SCH ×2 (08:24→17:15)
[2020-12-16] MEDS: Hydrocortisone 10 mg Tablet PO SCH ×2 (08:25→21:40)
[2020-12-16] MEDS: Fludrocortisone Acetate 0.1 MG TAB PO SCH (08:25)
[2020-12-16] MEDS: Midodrine HCl 5 MG TAB PO SCH ×4 (08:25→21:40)
[2020-12-16] MEDS: Pantoprazole 40 MG GRANULES PACKET PER TUBE SCH (08:26)
[2020-12-16] MEDS: Lidocaine 5% Patch TD SCH (11:14)
[2020-12-16] MEDS: Transdermal Patch Removal TOP SCH (22:23)
[2020-12-17] MEDS: Dextrose 50% Abboject 50 ML SYRINGE IVP PRN ×3 (04:45→21:35)
[2020-12-17 06:28] LABS: Bilirubin, Total 41.4 mg/dL (0.2-1.2)
[2020-12-17 06:34] LABS: ALT (SGPT) 77 U/L (8-55); AST (SGOT) 110 U/L (5-34); Alkaline Phosphatase 110 U/L (40-110); Anion Gap 26 mmol/L (10-20); BUN (Urea Nitrogen) 66 mg/dL (7.0-18.7); Calc. Creatinine Clearance 22 mL/min (70-130); Calcium 8.6 mg/dL (7.8-10.44); Carbon Dioxide 18 mmol/L (22-29); Chloride 101 mmol/L (98-107); Globulin 1.8 g/dL (2.4-3.5); Glucose 102 mg/dL (70-105); Protein, Total 3.8 g/dL (6.0-8.3); Sodium 140 mmol/L (136-145)
[2020-12-17] MEDS: Hydrocortisone 10 mg Tablet PO SCH ×2 (08:01→23:16)
[2020-12-17] MEDS: Cinacalcet HCl 30 MG TAB PO SCH (08:01)
[2020-12-17] MEDS: Midodrine HCl 5 MG TAB PO SCH ×3 (08:01→23:16)
[2020-12-17] MEDS: Pantoprazole 40 MG GRANULES PACKET PER TUBE SCH (08:01)
[2020-12-17] MEDS: Fludrocortisone Acetate 0.1 MG TAB PO SCH (08:01)
[2020-12-17] MEDS: Potassium Bicarbonate/Cit Ac 20 MEQ TAB PER TUBE SCH ×2 (08:01→17:00)
[2020-12-17] MEDS ORDERED: Albumin 25% 25 GM/100 ML BOT IVPB SCH (09:15)
[2020-12-17] MEDS: Lidocaine 5% Patch TD SCH (11:22)
[2020-12-17] MEDS ORDERED: Sodium Chloride 0.9% 250 ML IV SCH (18:30)
[2020-12-17] MEDS ORDERED: Sodium Chloride 0.9% 1,000 ML IV SCH (18:30)
[2020-12-17] MEDS ORDERED: Pharmacy to Dose VANCOMYCIN/RENALLY ADJ ANTIBIOTICS IVPB PRN (18:43)
[2020-12-17] MEDS ORDERED: Vancomycin HCl 1.5 GM in Sodium Chloride 0.9% 250 ML 300 ML IVPB SCH (19:00)
[2020-12-17] MEDS: Norepinephrine 8 MG/0.9% NS 250 ML IVPB SCH (20:45)
[2020-12-17] MEDS: Meropenem 500 MG in Sodium Chloride 0.9% 100 ML IVPB SCH (20:47)
[2020-12-17 21:10] LABS: Hemoglobin 8.5 g/dL (12.0-16.0); Mean Corpuscular HGB CONC 33.5 g/dL (32.0-36.0); Mean Corpuscular Hemoglobin 34.7 pg (27.0-31.0); Mean Platelet Volume 12.1 fL (7.4-10.4); Platelet Count 18 thou/uL (130-400); RBC Distribution Width 20.4 % (11.5-14.5); Red Blood Cell (RBC) Count 2.45 mill/uL (4.20-5.40); White Blood Cell (WBC) Count 7.6 thou/uL (4.8-10.8)
[2020-12-17 21:19] LABS: ALT (SGPT) 73 U/L (8-55); AST (SGOT) 109 U/L (5-34); Albumin 2.4 g/dL (3.5-5.0); Alkaline Phosphatase 104 U/L (40-110); Anion Gap 20 mmol/L (10-20); BUN (Urea Nitrogen) 21 mg/dL (7.0-18.7); Calc. Creatinine Clearance 54 mL/min (70-130); Calcium 9.1 mg/dL (7.8-10.44); Carbon Dioxide 24 mmol/L (22-29); Chloride 101 mmol/L (98-107); Globulin 1.4 g/dL (2.4-3.5); Glucose 51 mg/dL (70-105); Potassium 4.1 mmol/L (3.5-5.1); Protein, Total 3.8 g/dL (6.0-8.3); Sodium 141 mmol/L (136-145)
[2020-12-17 21:34] LABS: Bilirubin, Total 40.8 mg/dL (0.2-1.2)
[2020-12-17 21:37] LABS: Anisocytosis MODERATE=16-30 cells (100X) (0-5/hpf); Band 17 % (5-11); Eosinophils 3 % (0-10); Lymphocytes 10 % (21-51); MDiff Complete? YES; Macrocytosis MODERATE=16-30 cells (100X) (0-5/hpf); Monocytes 3 % (0-10); Neutrophil 67 % (42-75); Polychromasia SLIGHT = 2-3 cells (100X) (0-2/hpf)
[2020-12-17] MEDS: Transdermal Patch Removal TOP SCH (23:18)
[2020-12-18 05:47] LABS: Bilirubin, Total 44.5 mg/dL (0.2-1.2)
[2020-12-18 05:49] LABS: ALT (SGPT) 84 U/L (8-55); AST (SGOT) 117 U/L (5-34); Albumin 2.6 g/dL (3.5-5.0); Alkaline Phosphatase 115 U/L (40-110); Anion Gap 19 mmol/L (10-20); BUN (Urea Nitrogen) 27 mg/dL (7.0-18.7); Calc. Creatinine Clearance 45 mL/min (70-130); Calcium 9.5 mg/dL (7.8-10.44); Carbon Dioxide 27 mmol/L (22-29); Chloride 99 mmol/L (98-107); Globulin 1.6 g/dL (2.4-3.5); Glucose 74 mg/dL (70-105); Potassium 4.3 mmol/L (3.5-5.1); Protein, Total 4.2 g/dL (6.0-8.3); Sodium 141 mmol/L (136-145)
[2020-12-18] MEDS: Fludrocortisone Acetate 0.1 MG TAB PO SCH (08:23)
[2020-12-18] MEDS: Potassium Bicarbonate/Cit Ac 20 MEQ TAB PER TUBE SCH (08:23)
[2020-12-18] MEDS: Hydrocortisone 10 mg Tablet PO SCH ×2 (08:23→21:31)
[2020-12-18] MEDS: Cinacalcet HCl 30 MG TAB PO SCH (08:24)
[2020-12-18] MEDS: Midodrine HCl 5 MG TAB PO SCH ×3 (08:24→21:25)
[2020-12-18] MEDS: Pantoprazole 40 MG GRANULES PACKET PER TUBE SCH (08:26)
[2020-12-18] MEDS: Dextrose 50% Abboject 50 ML SYRINGE IVP PRN ×2 (09:04→15:59)
[2020-12-18] MEDS ORDERED: HOLD VANCOMYCIN FOR LEVEL >20 FS SCH (10:00)
[2020-12-18] MEDS ORDERED: Vancomycin 1 GM in Premix Bag 1 BAG IVPB SCH (10:00)
[2020-12-18] MEDS ORDERED: Vancomycin HCl 1.25 GM in Sodium Chloride 0.9% 250 ML 250 ML IVPB SCH (10:00)
[2020-12-18] MEDS ORDERED: Vancomycin HCl 500 MG in Sodium Chloride 0.9% 100 ML IVPB SCH (10:00)
[2020-12-18] MEDS: Norepinephrine 8 MG/0.9% NS 250 ML IVPB SCH ×2 (10:34→21:23)
[2020-12-18] MEDS: Lidocaine 5% Patch TD SCH (15:50)
[2020-12-18] MEDS: Meropenem 500 MG in Sodium Chloride 0.9% 100 ML IVPB SCH (21:25)
[2020-12-18] MEDS: Transdermal Patch Removal TOP SCH (23:18)
[2020-12-19 04:55] LABS: ALT (SGPT) 74 U/L (8-55); AST (SGOT) 70 U/L (5-34); Albumin 2.4 g/dL (3.5-5.0); Alkaline Phosphatase 107 U/L (40-110); Anion Gap 18 mmol/L (10-20); BUN (Urea Nitrogen) 46 mg/dL (7.0-18.7); Calc. Creatinine Clearance 30 mL/min (70-130); Calcium 9.4 mg/dL (7.8-10.44); Carbon Dioxide 26 mmol/L (22-29); Chloride 100 mmol/L (98-107); Globulin 1.6 g/dL (2.4-3.5); Glucose 87 mg/dL (70-105); Potassium 4.5 mmol/L (3.5-5.1); Sodium 139 mmol/L (136-145)
[2020-12-19] MEDS: Norepinephrine 8 MG/0.9% NS 250 ML IVPB SCH ×3 (06:05→19:46)
[2020-12-19 07:44] LABS: Hemoglobin 8.9 g/dL (12.0-16.0); Mean Corpuscular HGB CONC 31.9 g/dL (32.0-36.0); Mean Corpuscular Hemoglobin 33.4 pg (27.0-31.0); Mean Platelet Volume 11.2 fL (7.4-10.4); Platelet Count 25 thou/uL (130-400); RBC Distribution Width 20.2 % (11.5-14.5); Red Blood Cell (RBC) Count 2.67 mill/uL (4.20-5.40); White Blood Cell (WBC) Count 7.7 thou/uL (4.8-10.8)
[2020-12-19 08:48] LABS: Vancomycin, Random 19.3 ug/mL (See Comment)
[2020-12-19] MEDS: Cinacalcet HCl 30 MG TAB PO SCH (09:59)
[2020-12-19] MEDS: Pantoprazole 40 MG GRANULES PACKET PER TUBE SCH (10:00)
[2020-12-19] MEDS: Hydrocortisone 10 mg Tablet PO SCH ×2 (10:00→21:14)
[2020-12-19] MEDS: Fludrocortisone Acetate 0.1 MG TAB PO SCH (10:00)
[2020-12-19] MEDS: Midodrine HCl 5 MG TAB PO SCH ×3 (10:00→21:13)
[2020-12-19] MEDS ORDERED: Albumin 25% 25 GM/100 ML BOT IVPB ONE (10:45)
[2020-12-19] MEDS: Lidocaine 5% Patch TD SCH (13:01)
[2020-12-19] MEDS: Meropenem 500 MG in Sodium Chloride 0.9% 100 ML IVPB SCH (16:49)
[2020-12-20] MEDS: Transdermal Patch Removal TOP SCH ×2 (00:32→23:57)
[2020-12-20] MEDS: Norepinephrine 8 MG/0.9% NS 250 ML IVPB SCH ×3 (00:47→16:21)
[2020-12-20 05:01] LABS: INR-International Normal Ratio 2.7; Prothrombin Time 29.5 sec (12.0-14.7)
[2020-12-20 05:24] LABS: ALT (SGPT) 61 U/L (8-55); AST (SGOT) 50 U/L (5-34); Albumin 2.6 g/dL (3.5-5.0); Alkaline Phosphatase 103 U/L (40-110); Anion Gap 17 mmol/L (10-20); BUN (Urea Nitrogen) 30 mg/dL (7.0-18.7); Calc. Creatinine Clearance 48 mL/min (70-130); Calcium 9.7 mg/dL (7.8-10.44); Carbon Dioxide 28 mmol/L (22-29); Chloride 97 mmol/L (98-107); Globulin 1.5 g/dL (2.4-3.5); Glucose 118 mg/dL (70-105); Potassium 3.4 mmol/L (3.5-5.1); Protein, Total 4.1 g/dL (6.0-8.3); Sodium 139 mmol/L (136-145)
[2020-12-20 05:30] LABS: Bilirubin, Total 48.6 mg/dL (0.2-1.2)
[2020-12-20 08:25] LABS: #Eosinphils 0.5 thou/uL (0.0-0.7); #Lymphocytes 0.9 thou/uL (1.20-3.40); #Monocytes 0.2 thou/uL (0.11-0.59); #Neutrophils 5.4 thou/uL (1.40-6.50); %Basophils 0.5 % (0.0-1.0); %Eosinophils 7.1 % (0.0-10.0); %Lymphocytes 12.4 % (21.0-51.0); %Monocytes 2.9 % (0.0-10.0); %Neutrophils 77.2 % (42.0-75.0); Hemoglobin 9.5 g/dL (12.0-16.0); Mean Corpuscular HGB CONC 32.8 g/dL (32.0-36.0); Mean Corpuscular Hemoglobin 34.2 pg (27.0-31.0); Mean Platelet Volume 12.1 fL (7.4-10.4); Platelet Count 16 thou/uL (130-400); RBC Distribution Width 19.7 % (11.5-14.5); Red Blood Cell (RBC) Count 2.78 mill/uL (4.20-5.40)
[2020-12-20 08:45] LABS: Platelet Morphology Comment Appears Decreased
[2020-12-20] MEDS: Hydrocortisone 10 mg Tablet PO SCH ×2 (10:45→21:16)
[2020-12-20] MEDS: Pantoprazole 40 MG GRANULES PACKET PER TUBE SCH (10:45)
[2020-12-20] MEDS: Fludrocortisone Acetate 0.1 MG TAB PO SCH (10:46)
[2020-12-20] MEDS: Cinacalcet HCl 30 MG TAB PO SCH (10:46)
[2020-12-20] MEDS: Midodrine HCl 5 MG TAB PO SCH ×3 (10:46→21:16)
[2020-12-20] MEDS: Meropenem 500 MG in Sodium Chloride 0.9% 100 ML IVPB SCH ×2 (15:07→16:19)
[2020-12-20] MEDS: Lidocaine 5% Patch TD SCH (15:08)
[2020-12-21 04:15] LABS: Bilirubin, Total 46.5 mg/dL (0.2-1.2)
[2020-12-21 05:12] LABS: ALT (SGPT) 51 U/L (8-55); AST (SGOT) 43 U/L (5-34); Albumin 2.4 g/dL (3.5-5.0); Alkaline Phosphatase 94 U/L (40-110); Anion Gap 16 mmol/L (10-20); BUN (Urea Nitrogen) 47 mg/dL (7.0-18.7); Calc. Creatinine Clearance 33 mL/min (70-130); Calcium 9.4 mg/dL (7.8-10.44); Carbon Dioxide 27 mmol/L (22-29); Chloride 98 mmol/L (98-107); Globulin 1.5 g/dL (2.4-3.5); Glucose 124 mg/dL (70-105); Potassium 3.3 mmol/L (3.5-5.1); Protein, Total 3.9 g/dL (6.0-8.3); Sodium 138 mmol/L (136-145)
[2020-12-21] MEDS: Norepinephrine 8 MG/0.9% NS 250 ML IVPB SCH (05:46)
[2020-12-21] MEDS: Hydrocortisone 10 mg Tablet PO SCH ×3 (09:40→22:17)
[2020-12-21] MEDS: Midodrine HCl 5 MG TAB PO SCH ×3 (09:40→22:05)
[2020-12-21] MEDS: Fludrocortisone Acetate 0.1 MG TAB PO SCH (09:41)
[2020-12-21] MEDS: Pantoprazole 40 MG GRANULES PACKET PER TUBE SCH (09:41)
[2020-12-21] MEDS: Cinacalcet HCl 30 MG TAB PO SCH (09:44)
[2020-12-21] MEDS: Meropenem 500 MG in Sodium Chloride 0.9% 100 ML IVPB SCH (14:59)
[2020-12-21] MEDS: Lidocaine 5% Patch TD SCH (17:02)
[2020-12-21] MEDS: Transdermal Patch Removal TOP SCH (23:56)
[2020-12-22 03:56] LABS: Platelet Count 11 thou/uL (130-400)
[2020-12-22 04:04] LABS: Anion Gap 17 mmol/L (10-20); BUN (Urea Nitrogen) 65 mg/dL (7.0-18.7); Calc. Creatinine Clearance 24 mL/min (70-130); Calcium 10.1 mg/dL (7.8-10.44); Carbon Dioxide 25 mmol/L (22-29); Chloride 99 mmol/L (98-107); Glucose 124 mg/dL (70-105); Potassium 3.2 mmol/L (3.5-5.1); Sodium 138 mmol/L (136-145)
[2020-12-22 04:39] LABS: Anisocytosis SLIGHT = 6-15 cells (100X) (0-5/hpf); Band 22 % (5-11); Eosinophils 7 % (0-10); Hemoglobin 8.6 g/dL (12.0-16.0); Lymphocytes 28 % (21-51); MDiff Complete? YES; Mean Corpuscular HGB CONC 33.3 g/dL (32.0-36.0); Mean Corpuscular Hemoglobin 34.2 pg (27.0-31.0); Mean Platelet Volume 13.2 fL (7.4-10.4); Monocytes 1 % (0-10); Neutrophil 42 % (42-75); Nucleated RBC 1 % (0); Platelet Morphology Comment Appears Decreased; RBC Distribution Width 19.3 % (11.5-14.5); Red Blood Cell (RBC) Count 2.52 mill/uL (4.20-5.40); White Blood Cell (WBC) Count 3.8 thou/uL (4.8-10.8)
[2020-12-22] MEDS ORDERED: Potassium Bicarbonate/Cit Ac 20 MEQ TAB PER TUBE SCH (06:15)
[2020-12-22 08:23] LABS: Vancomycin, Random 10.7 ug/mL (See Comment)
[2020-12-22] MEDS ORDERED: Albumin 25% 25 GM/100 ML BOT IVPB SCH (08:30)
[2020-12-22] MEDS: Pantoprazole 40 MG GRANULES PACKET PER TUBE SCH (09:01)
[2020-12-22] MEDS: Fludrocortisone Acetate 0.1 MG TAB PO SCH (09:41)
[2020-12-22] MEDS: Hydrocortisone 10 mg Tablet PO SCH ×2 (09:41→20:55)
[2020-12-22] MEDS: EPOETIN ALFA-EPBX (ESRD) 3,000 UNIT/ML VIAL SC SCH (09:42)
[2020-12-22] MEDS: EPOETIN ALFA-EPBX (ESRD) 2,000 UNIT/ML VIAL SC SCH (09:42)
[2020-12-22] MEDS: Midodrine HCl 5 MG TAB PO SCH ×3 (09:43→20:55)
[2020-12-22] MEDS: Cinacalcet HCl 30 MG TAB PO SCH (09:45)
[2020-12-22] MEDS: Norepinephrine 8 MG/0.9% NS 250 ML IVPB SCH (12:03)
[2020-12-22] MEDS: Lidocaine 5% Patch TD SCH (12:09)
[2020-12-22] MEDS: Vancomycin HCl 750 MG in Sodium Chloride 0.9% 250 ML 250 ML IVPB SCH (13:14)
[2020-12-22] MEDS: Meropenem 500 MG in Sodium Chloride 0.9% 100 ML IVPB SCH (15:11)
[2020-12-22] MEDS: HumaLOG 300 UNITS/3 ML VIAL SC PRN (21:58)
[2020-12-22] MEDS: Transdermal Patch Removal TOP SCH (23:19)
[2020-12-23] MEDS: Norepinephrine 8 MG/0.9% NS 250 ML IVPB SCH (04:48)
[2020-12-23] MEDS: Fludrocortisone Acetate 0.1 MG TAB PO SCH (09:15)
[2020-12-23] MEDS: Hydrocortisone 10 mg Tablet PO SCH ×2 (09:15→21:11)
[2020-12-23] MEDS: Pantoprazole 40 MG GRANULES PACKET PER TUBE SCH (09:16)
[2020-12-23] MEDS: Midodrine HCl 5 MG TAB PO SCH ×3 (09:16→21:11)
[2020-12-23] MEDS: Cinacalcet HCl 30 MG TAB PO SCH (09:17)
[2020-12-23 09:21] LABS: INR-International Normal Ratio 2.4; Prothrombin Time 26.8 sec (12.0-14.7)
[2020-12-23 09:33] LABS: #Eosinphils 0.4 thou/uL (0.0-0.7); #Monocytes 0.1 thou/uL (0.11-0.59); #Neutrophils 4.4 thou/uL (1.40-6.50); %Basophils 0.6 % (0.0-1.0); %Eosinophils 7.4 % (0.0-10.0); %Lymphocytes 16.7 % (21.0-51.0); %Monocytes 2.1 % (0.0-10.0); %Neutrophils 73.2 % (42.0-75.0); Anion Gap 21 mmol/L (10-20); BUN (Urea Nitrogen) 38 mg/dL (7.0-18.7); Calc. Creatinine Clearance 44 mL/min (70-130); Calcium 10.4 mg/dL (7.8-10.44); Carbon Dioxide 28 mmol/L (22-29); Chloride 95 mmol/L (98-107); Glucose 151 mg/dL (70-105); Hemoglobin 8.7 g/dL (12.0-16.0); Mean Corpuscular HGB CONC 33.6 g/dL (32.0-36.0); Mean Corpuscular Hemoglobin 34.1 pg (27.0-31.0); Mean Platelet Volume 11.2 fL (7.4-10.4); Platelet Count 18 thou/uL (130-400); Potassium 3.3 mmol/L (3.5-5.1); RBC Distribution Width 19.1 % (11.5-14.5); Red Blood Cell (RBC) Count 2.55 mill/uL (4.20-5.40); Sodium 141 mmol/L (136-145); White Blood Cell (WBC) Count 6.1 thou/uL (4.8-10.8)
[2020-12-23] MEDS ORDERED: Phytonadione 5 MG TAB PER TUBE SCH (14:30)
[2020-12-23] MEDS: Meropenem 500 MG in Sodium Chloride 0.9% 100 ML IVPB SCH (15:38)
[2020-12-23] MEDS: Lidocaine 5% Patch TD SCH (15:39)
[2020-12-24] MEDS: Transdermal Patch Removal TOP SCH (00:09)
[2020-12-24] MEDS: Norepinephrine 8 MG/0.9% NS 250 ML IVPB SCH ×3 (03:49→21:57)
[2020-12-24 04:19] LABS: INR-International Normal Ratio 2.6; Prothrombin Time 28.1 sec (12.0-14.7)
[2020-12-24 04:38] LABS: ALT (SGPT) 35 U/L (8-55); AST (SGOT) 46 U/L (5-34); Albumin 2.4 g/dL (3.5-5.0); Alkaline Phosphatase 105 U/L (40-110); Anion Gap 25 mmol/L (10-20); BUN (Urea Nitrogen) 52 mg/dL (7.0-18.7); Calc. Creatinine Clearance 33 mL/min (70-130); Calcium 10.1 mg/dL (7.8-10.44); Carbon Dioxide 27 mmol/L (22-29); Chloride 95 mmol/L (98-107); Globulin 1.6 g/dL (2.4-3.5); Glucose 130 mg/dL (70-105); Potassium 3.5 mmol/L (3.5-5.1); Sodium 143 mmol/L (136-145)
[2020-12-24 04:46] LABS: Bilirubin, Total 46.4 mg/dL (0.2-1.2)
[2020-12-24 05:12] LABS: Hemoglobin 8.2 g/dL (12.0-16.0); Mean Corpuscular HGB CONC 34.2 g/dL (32.0-36.0); Mean Corpuscular Hemoglobin 34.5 pg (27.0-31.0); Mean Platelet Volume 9.9 fL (7.4-10.4); Platelet Count 21 thou/uL (130-400); RBC Distribution Width 19.3 % (11.5-14.5); Red Blood Cell (RBC) Count 2.38 mill/uL (4.20-5.40); White Blood Cell (WBC) Count 6.4 thou/uL (4.8-10.8)
[2020-12-24] MEDS ORDERED: Potassium Chloride 20 MEQ TAB PER TUBE SCH (06:00)
[2020-12-24 06:11] LABS: Band 24 % (5-11); Eosinophils 2 % (0-10); Lymphocytes 3 % (21-51); MDiff Complete? YES; Monocytes 2 % (0-10); Neutrophil 69 % (42-75)
[2020-12-24 08:17] LABS: Vancomycin, Random 11.3 ug/mL (See Comment)
[2020-12-24] MEDS: Cinacalcet HCl 30 MG TAB PO SCH (09:00)
[2020-12-24] MEDS: Midodrine HCl 5 MG TAB PO SCH ×3 (09:00→20:30)
[2020-12-24] MEDS: Pantoprazole 40 MG GRANULES PACKET PER TUBE SCH (09:01)
[2020-12-24] MEDS: EPOETIN ALFA-EPBX (ESRD) 2,000 UNIT/ML VIAL SC SCH (09:01)
[2020-12-24] MEDS: Fludrocortisone Acetate 0.1 MG TAB PO SCH (09:02)
[2020-12-24] MEDS: Hydrocortisone 10 mg Tablet PO SCH ×2 (09:02→20:30)
[2020-12-24] MEDS: EPOETIN ALFA-EPBX (ESRD) 3,000 UNIT/ML VIAL SC SCH (09:02)
[2020-12-24] MEDS: Phytonadione 5 MG TAB PER TUBE SCH (09:02)
[2020-12-24] MEDS: Vancomycin HCl 750 MG in Sodium Chloride 0.9% 250 ML 250 ML IVPB SCH (11:16)
[2020-12-24] MEDS: Lidocaine 5% Patch TD SCH (11:17)
[2020-12-24] MEDS: Meropenem 500 MG in Sodium Chloride 0.9% 100 ML IVPB SCH (14:10)
[2020-12-24] MEDS: Acetaminophen 325 MG TAB PO PRN ×2 (14:13→20:30)
[2020-12-25 04:53] LABS: #Basophils 0.1 thou/uL (0.0-0.2); #Eosinphils 0.4 thou/uL (0.0-0.7); #Lymphocytes 1.2 thou/uL (1.20-3.40); #Monocytes 0.2 thou/uL (0.11-0.59); #Neutrophils 6.4 thou/uL (1.40-6.50); %Eosinophils 4.7 % (0.0-10.0); %Lymphocytes 14.9 % (21.0-51.0); %Monocytes 2.7 % (0.0-10.0); %Neutrophils 76.7 % (42.0-75.0); Hemoglobin 8.8 g/dL (12.0-16.0); Mean Corpuscular HGB CONC 33.2 g/dL (32.0-36.0); Mean Corpuscular Hemoglobin 34.3 pg (27.0-31.0); Mean Platelet Volume 10.5 fL (7.4-10.4); Platelet Count 40 thou/uL (130-400); RBC Distribution Width 19.8 % (11.5-14.5); Red Blood Cell (RBC) Count 2.57 mill/uL (4.20-5.40); White Blood Cell (WBC) Count 8.3 thou/uL (4.8-10.8)
[2020-12-25 04:55] LABS: INR-International Normal Ratio 2.5; Prothrombin Time 27.9 sec (12.0-14.7)
[2020-12-25 05:27] LABS: Bilirubin, Total 45.9 mg/dL (0.2-1.2)
[2020-12-25 05:34] LABS: ALT (SGPT) 40 U/L (8-55); AST (SGOT) 63 U/L (5-34); Albumin 2.3 g/dL (3.5-5.0); Alkaline Phosphatase 124 U/L (40-110); Anion Gap 15 mmol/L (10-20); BUN (Urea Nitrogen) 30 mg/dL (7.0-18.7); Calc. Creatinine Clearance 56 mL/min (70-130); Calcium 10.2 mg/dL (7.8-10.44); Carbon Dioxide 32 mmol/L (22-29); Chloride 95 mmol/L (98-107); Glucose 150 mg/dL (70-105); Potassium 3.8 mmol/L (3.5-5.1); Protein, Total 4.3 g/dL (6.0-8.3); Sodium 138 mmol/L (136-145)
[2020-12-25] MEDS: Transdermal Patch Removal TOP SCH ×2 (08:48→23:59)
[2020-12-25] MEDS: Pantoprazole 40 MG GRANULES PACKET PER TUBE SCH (09:16)
[2020-12-25] MEDS: Fludrocortisone Acetate 0.1 MG TAB PO SCH (09:17)
[2020-12-25] MEDS: Midodrine HCl 5 MG TAB PO SCH ×3 (09:17→20:08)
[2020-12-25] MEDS: Hydrocortisone 10 mg Tablet PO SCH ×2 (09:18→20:07)
[2020-12-25] MEDS: Phytonadione 5 MG TAB PER TUBE SCH (09:18)
[2020-12-25] MEDS ORDERED: Cinacalcet HCl 30 MG TAB PO SCH (09:45)
[2020-12-25] MEDS: Cinacalcet HCl 30 MG TAB PO SCH (09:58)
[2020-12-25] MEDS: Lidocaine 5% Patch TD SCH (12:05)
[2020-12-25] MEDS: Norepinephrine 8 MG/0.9% NS 250 ML IVPB SCH ×2 (12:14→22:09)
[2020-12-26 03:33] LABS: #Basophils 0.1 thou/uL (0.0-0.2); #Eosinphils 0.1 thou/uL (0.0-0.7); #Lymphocytes 1.1 thou/uL (1.20-3.40); #Monocytes 0.3 thou/uL (0.11-0.59); #Neutrophils 4.7 thou/uL (1.40-6.50); %Basophils 1.4 % (0.0-1.0); %Eosinophils 1.8 % (0.0-10.0); %Lymphocytes 17.5 % (21.0-51.0); %Monocytes 4.3 % (0.0-10.0); %Neutrophils 74.9 % (42.0-75.0); Hemoglobin 7.5 g/dL (12.0-16.0); Mean Corpuscular HGB CONC 34.1 g/dL (32.0-36.0); Mean Corpuscular Hemoglobin 35.4 pg (27.0-31.0); Mean Platelet Volume 10.3 fL (7.4-10.4); Platelet Count 43 thou/uL (130-400); RBC Distribution Width 19.9 % (11.5-14.5); Red Blood Cell (RBC) Count 2.12 mill/uL (4.20-5.40); White Blood Cell (WBC) Count 6.2 thou/uL (4.8-10.8)
[2020-12-26 03:39] LABS: INR-International Normal Ratio 2.8; Prothrombin Time 29.9 sec (12.0-14.7)
[2020-12-26 03:58] LABS: Bilirubin, Total 56.9 mg/dL (0.2-1.2)
[2020-12-26 04:00] LABS: ALT (SGPT) 25 U/L (8-55); AST (SGOT) 43 U/L (5-34); Albumin 3.2 g/dL (3.5-5.0); Alkaline Phosphatase 86 U/L (40-110); Anion Gap 18 mmol/L (10-20); BUN (Urea Nitrogen) 44 mg/dL (7.0-18.7); Calc. Creatinine Clearance 39 mL/min (70-130); Calcium 10.5 mg/dL (7.8-10.44); Carbon Dioxide 29 mmol/L (22-29); Chloride 98 mmol/L (98-107); Globulin 1.3 g/dL (2.4-3.5); Glucose 135 mg/dL (70-105); Potassium 3.9 mmol/L (3.5-5.1); Protein, Total 4.5 g/dL (6.0-8.3); Sodium 141 mmol/L (136-145)
[2020-12-26 08:22] LABS: Hep B Surf Ag Non-Reactive S/CO (NonReactive)
[2020-12-26] MEDS: Norepinephrine 8 MG/0.9% NS 250 ML IVPB SCH ×2 (08:36→18:29)
[2020-12-26] MEDS: Fludrocortisone Acetate 0.1 MG TAB PO SCH (08:37)
[2020-12-26] MEDS: Midodrine HCl 5 MG TAB PO SCH ×3 (08:37→21:26)
[2020-12-26] MEDS: Hydrocortisone 10 mg Tablet PO SCH ×2 (08:37→21:27)
[2020-12-26] MEDS: Phytonadione 5 MG TAB PER TUBE SCH (08:37)
[2020-12-26] MEDS: Pantoprazole 40 MG GRANULES PACKET PER TUBE SCH (08:37)
[2020-12-26] MEDS: Cinacalcet HCl 30 MG TAB PO SCH (08:37)
[2020-12-26] MEDS: EPOETIN ALFA-EPBX (ESRD) 2,000 UNIT/ML VIAL SC SCH (08:51)
[2020-12-26] MEDS: EPOETIN ALFA-EPBX (ESRD) 3,000 UNIT/ML VIAL SC SCH (08:51)
[2020-12-26] MEDS: Lidocaine 5% Patch TD SCH (11:05)
[2020-12-27] MEDS: Norepinephrine 8 MG/0.9% NS 250 ML IVPB SCH ×2 (03:15→12:30)
[2020-12-27 05:27] LABS: INR-International Normal Ratio 2.5; Prothrombin Time 27.5 sec (12.0-14.7)
[2020-12-27 05:50] LABS: ALT (SGPT) 28 U/L (8-55); AST (SGOT) 49 U/L (5-34); Albumin 2.8 g/dL (3.5-5.0); Alkaline Phosphatase 99 U/L (40-110); Anion Gap 18 mmol/L (10-20); BUN (Urea Nitrogen) 29 mg/dL (7.0-18.7); Bilirubin, Total Greater than 25.0 mg/dL (0.2-1.2); Calc. Creatinine Clearance 58 mL/min (70-130); Calcium 11.3 mg/dL (7.8-10.44); Carbon Dioxide 28 mmol/L (22-29); Chloride 98 mmol/L (98-107); Globulin 1.5 g/dL (2.4-3.5); Glucose 137 mg/dL (70-105); Potassium 3.7 mmol/L (3.5-5.1); Protein, Total 4.3 g/dL (6.0-8.3); Sodium 140 mmol/L (136-145)
[2020-12-27] MEDS: Cinacalcet HCl 30 MG TAB PO SCH (08:22)
[2020-12-27] MEDS: Pantoprazole 40 MG GRANULES PACKET PER TUBE SCH (08:23)
[2020-12-27] MEDS: Hydrocortisone 10 mg Tablet PO SCH ×2 (08:23→21:11)
[2020-12-27] MEDS: Fludrocortisone Acetate 0.1 MG TAB PO SCH (08:24)
[2020-12-27] MEDS: Phytonadione 5 MG TAB PER TUBE SCH (08:24)
[2020-12-27] MEDS: Midodrine HCl 5 MG TAB PO SCH ×3 (08:26→21:11)
[2020-12-27] MEDS: Lidocaine 5% Patch TD SCH (10:59)
[2020-12-27] MEDS: cefTRIAXone\\ROCEPHIN 2 GM in Sodium Chloride 0.9% 100 ML IVPB SCH (16:40)
[2020-12-27] MEDS: Transdermal Patch Removal TOP SCH ×2 (23:48)
[2020-12-28 05:06] LABS: ALT (SGPT) 29 U/L (8-55); AST (SGOT) 57 U/L (5-34); Albumin 2.6 g/dL (3.5-5.0); Alkaline Phosphatase 94 U/L (40-110); Anion Gap 18 mmol/L (10-20); BUN (Urea Nitrogen) 43 mg/dL (7.0-18.7); Bilirubin, Total 46.9 mg/dL (0.2-1.2); Calc. Creatinine Clearance 43 mL/min (70-130); Calcium 11.9 mg/dL (7.8-10.44); Carbon Dioxide 26 mmol/L (22-29); Chloride 99 mmol/L (98-107); Globulin 1.6 g/dL (2.4-3.5); Glucose 136 mg/dL (70-105); Potassium 3.8 mmol/L (3.5-5.1); Protein, Total 4.2 g/dL (6.0-8.3); Sodium 139 mmol/L (136-145)
[2020-12-28] MEDS: Norepinephrine 8 MG/0.9% NS 250 ML IVPB SCH ×2 (05:52→09:28)
[2020-12-28] MEDS: Cinacalcet HCl 30 MG TAB PO SCH (08:25)
[2020-12-28] MEDS: Pantoprazole 40 MG GRANULES PACKET PER TUBE SCH (09:27)
[2020-12-28] MEDS: Midodrine HCl 5 MG TAB PO SCH ×3 (09:28→21:23)
[2020-12-28] MEDS: Hydrocortisone 10 mg Tablet PO SCH ×2 (09:29→21:24)
[2020-12-28] MEDS: Fludrocortisone Acetate 0.1 MG TAB PO SCH (09:30)
[2020-12-28] MEDS: Lidocaine 5% Patch TD SCH (10:32)
[2020-12-28] MEDS: cefTRIAXone\\ROCEPHIN 2 GM in Sodium Chloride 0.9% 100 ML IVPB SCH (15:28)
[2020-12-28] MEDS: Transdermal Patch Removal TOP SCH (23:06)
[2020-12-29 04:26] LABS: Mean Corpuscular HGB CONC 33.7 g/dL (32.0-36.0); Mean Platelet Volume 9.4 fL (7.4-10.4); Platelet Count 90 thou/uL (130-400); RBC Distribution Width 20.3 % (11.5-14.5); Red Blood Cell (RBC) Count 2.22 mill/uL (4.20-5.40); White Blood Cell (WBC) Count 7.7 thou/uL (4.8-10.8)
[2020-12-29 04:57] LABS: Albumin 2.4 g/dL (3.5-5.0)
[2020-12-29 04:58] LABS: Chloride 99 mmol/L (98-107); Potassium 3.7 mmol/L (3.5-5.1); Sodium 138 mmol/L (136-145)
[2020-12-29 05:00] LABS: Globulin 1.5 g/dL (2.4-3.5); Glucose 109 mg/dL (70-105); Protein, Total 3.9 g/dL (6.0-8.3)
[2020-12-29 05:01] LABS: Anion Gap 17 mmol/L (10-20); Carbon Dioxide 26 mmol/L (22-29)
[2020-12-29 05:02] LABS: Alkaline Phosphatase 104 U/L (40-110)
[2020-12-29 05:03] LABS: Calc. Creatinine Clearance 30 mL/min (70-130)
[2020-12-29 05:04] LABS: BUN (Urea Nitrogen) 60 mg/dL (7.0-18.7)
[2020-12-29 05:05] LABS: AST (SGOT) 55 U/L (5-34); Magnesium 2.3 mg/dL (1.6-2.6)
[2020-12-29 05:06] LABS: ALT (SGPT) 29 U/L (8-55)
[2020-12-29 05:23] LABS: Bilirubin, Total 45.7 mg/dL (0.2-1.2)
[2020-12-29 05:32] LABS: Calcium 12.2 mg/dL (7.8-10.44)
[2020-12-29] MEDS: Norepinephrine 8 MG/0.9% NS 250 ML IVPB SCH ×3 (05:48→22:08)
[2020-12-29] MEDS: Cinacalcet HCl 30 MG TAB PO SCH (09:43)
[2020-12-29] MEDS: Midodrine HCl 5 MG TAB PO SCH ×3 (09:43→21:27)
[2020-12-29] MEDS: Pantoprazole 40 MG GRANULES PACKET PER TUBE SCH (09:44)
[2020-12-29] MEDS: Hydrocortisone 10 mg Tablet PO SCH ×2 (09:47→21:27)
[2020-12-29] MEDS: Fludrocortisone Acetate 0.1 MG TAB PO SCH (12:04)
[2020-12-29] MEDS: Lidocaine 5% Patch TD SCH (12:52)
[2020-12-29] MEDS: EPOETIN ALFA-EPBX (ESRD) 2,000 UNIT/ML VIAL SC SCH (13:39)
[2020-12-29] MEDS: EPOETIN ALFA-EPBX (ESRD) 3,000 UNIT/ML VIAL SC SCH (13:39)
[2020-12-30] MEDS: Transdermal Patch Removal TOP SCH ×2 (00:40→22:22)
[2020-12-30] MEDS: Norepinephrine 8 MG/0.9% NS 250 ML IVPB SCH ×3 (03:29→22:22)
[2020-12-30 06:58] LABS: ALT (SGPT) 36 U/L (8-55); AST (SGOT) 64 U/L (5-34); Albumin 2.5 g/dL (3.5-5.0); Alkaline Phosphatase 120 U/L (40-110); Anion Gap 16 mmol/L (10-20); BUN (Urea Nitrogen) 31 mg/dL (7.0-18.7); Calc. Creatinine Clearance 52 mL/min (70-130); Calcium 11.3 mg/dL (7.8-10.44); Carbon Dioxide 27 mmol/L (22-29); Chloride 102 mmol/L (98-107); Globulin 1.7 g/dL (2.4-3.5); Glucose 130 mg/dL (70-105); Potassium 3.8 mmol/L (3.5-5.1); Protein, Total 4.2 g/dL (6.0-8.3); Sodium 141 mmol/L (136-145)
[2020-12-30 07:01] LABS: Bilirubin, Total 46.3 mg/dL (0.2-1.2)
[2020-12-30] MEDS: Midodrine HCl 5 MG TAB PO SCH ×3 (08:38→21:31)
[2020-12-30] MEDS: Pantoprazole 40 MG GRANULES PACKET PER TUBE SCH (08:38)
[2020-12-30] MEDS: Hydrocortisone 10 mg Tablet PO SCH ×2 (08:38→21:31)
[2020-12-30] MEDS: Fludrocortisone Acetate 0.1 MG TAB PO SCH (08:38)
[2020-12-30] MEDS: Cinacalcet HCl 30 MG TAB PO SCH (08:38)
[2020-12-30] MEDS: Phytonadione 5 MG TAB PER TUBE SCH (08:39)
[2020-12-30] MEDS: Lidocaine 5% Patch TD SCH (12:51)
[2020-12-31 05:13] LABS: Bilirubin, Total 52.1 mg/dL (0.2-1.2)
[2020-12-31 05:14] LABS: ALT (SGPT) 37 U/L (8-55); AST (SGOT) 60 U/L (5-34); Albumin 2.4 g/dL (3.5-5.0); Alkaline Phosphatase 121 U/L (40-110); Anion Gap 17 mmol/L (10-20); BUN (Urea Nitrogen) 44 mg/dL (7.0-18.7); Calc. Creatinine Clearance 37 mL/min (70-130); Calcium 11.7 mg/dL (7.8-10.44); Carbon Dioxide 26 mmol/L (22-29); Chloride 101 mmol/L (98-107); Globulin 1.8 g/dL (2.4-3.5); Glucose 130 mg/dL (70-105); Potassium 3.7 mmol/L (3.5-5.1); Protein, Total 4.2 g/dL (6.0-8.3); Sodium 140 mmol/L (136-145)
[2020-12-31] MEDS: Norepinephrine 8 MG/0.9% NS 250 ML IVPB SCH ×4 (06:48→23:43)
[2020-12-31] MEDS ORDERED: Albumin 25% 25 GM/100 ML BOT IVPB SCH (08:15)
[2020-12-31] MEDS: EPOETIN ALFA-EPBX (ESRD) 3,000 UNIT/ML VIAL SC SCH (11:20)
[2020-12-31] MEDS: EPOETIN ALFA-EPBX (ESRD) 2,000 UNIT/ML VIAL SC SCH (11:21)
[2020-12-31 12:53] LABS: Hemoglobin 7.1 g/dL (12.0-16.0); Mean Corpuscular HGB CONC 32.8 g/dL (32.0-36.0); Mean Corpuscular Hemoglobin 35.5 pg (27.0-31.0); Mean Platelet Volume 8.9 fL (7.4-10.4); Platelet Count 121 thou/uL (130-400); RBC Distribution Width 20.6 % (11.5-14.5); Red Blood Cell (RBC) Count 1.99 mill/uL (4.20-5.40); White Blood Cell (WBC) Count 10.3 thou/uL (4.8-10.8)
[2020-12-31 12:54] LABS: Band 32 % (5-11); Lymphocytes 13 % (21-51); MDiff Complete? YES; Metamyelocyte 5 % (0-0); Myelocyte 2 % (0-0); Neutrophil 47 % (42-75); Nucleated RBC 3 % (0)
[2020-12-31] MEDS: Phytonadione 5 MG TAB PER TUBE SCH (13:05)
[2020-12-31] MEDS: Lidocaine 5% Patch TD SCH (13:06)
[2020-12-31] MEDS: Midodrine HCl 5 MG TAB PO SCH ×3 (13:06→21:09)
[2020-12-31] MEDS: Cinacalcet HCl 30 MG TAB PO SCH (13:07)
[2020-12-31] MEDS: Fludrocortisone Acetate 0.1 MG TAB PO SCH (13:07)
[2020-12-31] MEDS: Hydrocortisone 10 mg Tablet PO SCH ×2 (13:07→21:09)
[2020-12-31] MEDS: Pantoprazole 40 MG GRANULES PACKET PER TUBE SCH (13:08)
[2020-12-31] MEDS: Vasopressin 20 UNIT, Admixture Fee 1 EACH in Sodium Chloride 0.9% 50 ML IV SCH (21:41)
[2020-12-31] MEDS: Transdermal Patch Removal TOP SCH (23:45)
[2021-01-01] MEDS: Vasopressin 20 UNIT, Admixture Fee 1 EACH in Sodium Chloride 0.9% 50 ML IV SCH ×3 (02:57→21:38)
[2021-01-01] MEDS: Norepinephrine 8 MG/0.9% NS 250 ML IVPB SCH ×2 (02:58→07:55)
[2021-01-01 05:30] LABS: ALT (SGPT) 45 U/L (8-55); AST (SGOT) 97 U/L (5-34); Alkaline Phosphatase 133 U/L (40-110); Anion Gap 20 mmol/L (10-20); BUN (Urea Nitrogen) 26 mg/dL (7.0-18.7); Calc. Creatinine Clearance 63 mL/min (70-130); Calcium 11.5 mg/dL (7.8-10.44); Carbon Dioxide 25 mmol/L (22-29); Chloride 100 mmol/L (98-107); Globulin 1.6 g/dL (2.4-3.5); Glucose 93 mg/dL (70-105); Potassium 4.6 mmol/L (3.5-5.1); Protein, Total 4.6 g/dL (6.0-8.3); Sodium 140 mmol/L (136-145)
[2021-01-01 05:42] LABS: Bilirubin, Total 51.4 mg/dL (0.2-1.2)
[2021-01-01] MEDS: Cinacalcet HCl 30 MG TAB PO SCH (08:05)
[2021-01-01] MEDS: Fludrocortisone Acetate 0.1 MG TAB PO SCH (08:05)
[2021-01-01] MEDS: Hydrocortisone 10 mg Tablet PO SCH ×2 (08:05→21:40)
[2021-01-01] MEDS: Phytonadione 5 MG TAB PER TUBE SCH (08:06)
[2021-01-01] MEDS: Midodrine HCl 5 MG TAB PO SCH ×3 (08:06→21:38)
[2021-01-01] MEDS: Pantoprazole 40 MG GRANULES PACKET PER TUBE SCH (08:06)
[2021-01-01] MEDS: Norepinephrine 16 MG in Sodium Chloride 0.9% 250 ML 234 ML IVPB PRN ×2 (10:32→18:48)
[2021-01-01 11:57] LABS: Hemoglobin 6.1 g/dL (12.0-16.0); Mean Corpuscular HGB CONC 32.2 g/dL (32.0-36.0); Mean Corpuscular Hemoglobin 35.3 pg (27.0-31.0); Mean Platelet Volume 8.7 fL (7.4-10.4); Platelet Count 120 thou/uL (130-400); RBC Distribution Width 20.7 % (11.5-14.5); Red Blood Cell (RBC) Count 1.73 mill/uL (4.20-5.40); White Blood Cell (WBC) Count 12.2 thou/uL (4.8-10.8)
[2021-01-01 12:26] LABS: Band 30 % (5-11); Eosinophils 1 % (0-10); Lymphocytes 5 % (21-51); MDiff Complete? YES; Metamyelocyte 6 % (0-0); Myelocyte 3 % (0-0); Neutrophil 55 % (42-75)
[2021-01-01] MEDS: Lidocaine 5% Patch TD SCH (13:00)
[2021-01-01] MEDS: Octreotide Acetate 1,250 MCG in Sodium Chloride 0.9% 250 ML 250 ML IVPB SCH (13:50)
[2021-01-01] MEDS: Pantoprazole 40 MG VIAL IVP SCH (21:38)
[2021-01-01] MEDS: HumaLOG 300 UNITS/3 ML VIAL SC PRN (22:53)
[2021-01-02] MEDS: Transdermal Patch Removal TOP SCH (02:46)
[2021-01-02 04:17] LABS: INR-International Normal Ratio 2.3
[2021-01-02 04:34] LABS: ALT (SGPT) 49 U/L (8-55); AST (SGOT) 68 U/L (5-34); Albumin 2.9 g/dL (3.5-5.0); Alkaline Phosphatase 131 U/L (40-110); Anion Gap 16 mmol/L (10-20); BUN (Urea Nitrogen) 40 mg/dL (7.0-18.7); Calc. Creatinine Clearance 43 mL/min (70-130); Calcium 10.7 mg/dL (7.8-10.44); Carbon Dioxide 26 mmol/L (22-29); Chloride 101 mmol/L (98-107); Globulin 1.6 g/dL (2.4-3.5); Glucose 201 mg/dL (70-105); Potassium 4.3 mmol/L (3.5-5.1); Protein, Total 4.5 g/dL (6.0-8.3); Sodium 139 mmol/L (136-145)
[2021-01-02 04:42] LABS: Bilirubin, Total 57.9 mg/dL (0.2-1.2)
[2021-01-02] MEDS: HumaLOG 300 UNITS/3 ML VIAL SC PRN ×2 (05:39→09:38)
[2021-01-02] MEDS: Norepinephrine 16 MG in Sodium Chloride 0.9% 250 ML 234 ML IVPB PRN ×2 (06:22→17:05)
[2021-01-02] MEDS: Vasopressin 20 UNIT, Admixture Fee 1 EACH in Sodium Chloride 0.9% 50 ML IV SCH ×2 (06:23→14:45)
[2021-01-02] MEDS: Fludrocortisone Acetate 0.1 MG TAB PO SCH (09:11)
[2021-01-02] MEDS: Cinacalcet HCl 30 MG TAB PO SCH (09:11)
[2021-01-02] MEDS: Hydrocortisone 10 mg Tablet PO SCH ×2 (09:14→21:24)
[2021-01-02] MEDS: Pantoprazole 40 MG VIAL IVP SCH ×2 (09:15→21:25)
[2021-01-02] MEDS: Midodrine HCl 5 MG TAB PO SCH ×3 (09:15→21:24)
[2021-01-02] MEDS: Phytonadione 5 MG TAB PER TUBE SCH (09:15)
[2021-01-02] MEDS: Lidocaine 5% Patch TD SCH (09:16)
[2021-01-02] MEDS: EPOETIN ALFA-EPBX (ESRD) 3,000 UNIT/ML VIAL SC SCH (09:37)
[2021-01-02] MEDS: EPOETIN ALFA-EPBX (ESRD) 2,000 UNIT/ML VIAL SC SCH (09:37)
[2021-01-02 11:55] LABS: Hemoglobin 8.1 g/dL (12.0-16.0); Mean Corpuscular HGB CONC 32.1 g/dL (32.0-36.0); Mean Corpuscular Hemoglobin 33.3 pg (27.0-31.0); Mean Platelet Volume 8.3 fL (7.4-10.4); Platelet Count 122 thou/uL (130-400); RBC Distribution Width 20.8 % (11.5-14.5); Red Blood Cell (RBC) Count 2.42 mill/uL (4.20-5.40); White Blood Cell (WBC) Count 14.6 thou/uL (4.8-10.8)
[2021-01-02] MEDS: Octreotide Acetate 1,250 MCG in Sodium Chloride 0.9% 250 ML 250 ML IVPB SCH (14:46)
[2021-01-02] MEDS ORDERED: Albumin 5% 500 ML ONE (15:51)
[2021-01-02] MEDS: Rifaximin 550 MG TAB PER TUBE SCH (21:24)
[2021-01-03] MEDS: Transdermal Patch Removal TOP SCH ×2 (03:20→23:30)
[2021-01-03] MEDS: Vasopressin 20 UNIT, Admixture Fee 1 EACH in Sodium Chloride 0.9% 50 ML IV SCH (03:20)
[2021-01-03] MEDS: Norepinephrine 16 MG in Sodium Chloride 0.9% 250 ML 234 ML IVPB PRN ×3 (03:21→20:59)
[2021-01-03] MEDS: ADMIXTURE FEE IV SCH ×3 (03:23→20:57)
[2021-01-03] MEDS: SODIUM CHLORIDE IV SCH ×3 (03:23→20:57)
[2021-01-03] MEDS: VASOPRESSIN IV SCH ×3 (03:23→20:57)
[2021-01-03 04:42] LABS: INR-International Normal Ratio 2.4; Prothrombin Time 26.9 sec (12.0-14.7)
[2021-01-03 05:31] LABS: Mean Corpuscular Volume 98.4 fL (78.0-98.0)
[2021-01-03 05:33] LABS: Hemoglobin 7.9 g/dL (12.0-16.0); Mean Corpuscular HGB CONC 33.5 g/dL (32.0-36.0); Mean Corpuscular Hemoglobin 32.9 pg (27.0-31.0); Mean Platelet Volume 8.2 fL (7.4-10.4); Platelet Count 85 thou/uL (130-400); RBC Distribution Width 19.1 % (11.5-14.5); White Blood Cell (WBC) Count 14.3 thou/uL (4.8-10.8)
[2021-01-03 05:38] LABS: Bilirubin, Total 50.2 mg/dL (0.2-1.2)
[2021-01-03 05:49] LABS: ALT (SGPT) 34 U/L (8-55); AST (SGOT) 48 U/L (5-34); Albumin 3.2 g/dL (3.5-5.0); Alkaline Phosphatase 107 U/L (40-110); Anion Gap 18 mmol/L (10-20); BUN (Urea Nitrogen) 22 mg/dL (7.0-18.7); Calc. Creatinine Clearance 77 mL/min (70-130); Calcium 9.7 mg/dL (7.8-10.44); Carbon Dioxide 27 mmol/L (22-29); Chloride 103 mmol/L (98-107); Globulin 1.4 g/dL (2.4-3.5); Glucose 127 mg/dL (70-105); Potassium 3.7 mmol/L (3.5-5.1); Protein, Total 4.6 g/dL (6.0-8.3); Sodium 144 mmol/L (136-145)
[2021-01-03 06:18] LABS: Band 17 % (5-11); Lymphocytes 3 % (21-51); MDiff Complete? YES; Monocytes 5 % (0-10); Neutrophil 75 % (42-75); Nucleated RBC 1 % (0); Platelet Morphology Comment Appears Decreased
[2021-01-03] MEDS: Fludrocortisone Acetate 0.1 MG TAB PO SCH (08:32)
[2021-01-03] MEDS: Cinacalcet HCl 30 MG TAB PO SCH (08:32)
[2021-01-03] MEDS: Hydrocortisone 10 mg Tablet PO SCH ×2 (08:33→21:06)
[2021-01-03] MEDS: Pantoprazole 40 MG VIAL IVP SCH ×2 (08:34→21:07)
[2021-01-03] MEDS: Phytonadione 5 MG TAB PER TUBE SCH (08:34)
[2021-01-03] MEDS: Midodrine HCl 5 MG TAB PO SCH ×3 (08:34→21:06)
[2021-01-03] MEDS: Rifaximin 550 MG TAB PER TUBE SCH ×2 (08:35→21:11)
[2021-01-03] MEDS: Lidocaine 5% Patch TD SCH (08:35)
[2021-01-03] MEDS: Octreotide Acetate 1,250 MCG in Sodium Chloride 0.9% 250 ML 250 ML IVPB SCH (12:15)
[2021-01-03] MEDS: HumaLOG 300 UNITS/3 ML VIAL SC PRN (21:46)
[2021-01-04] MEDS: ADMIXTURE FEE IV SCH ×3 (03:26→23:46)
[2021-01-04] MEDS: SODIUM CHLORIDE IV SCH ×3 (03:26→23:46)
[2021-01-04] MEDS: VASOPRESSIN IV SCH ×3 (03:26→23:46)
[2021-01-04] MEDS: HumaLOG 300 UNITS/3 ML VIAL SC PRN ×3 (03:43→18:32)
[2021-01-04 05:01] LABS: Bilirubin, Total 43.3 mg/dL (0.2-1.2)
[2021-01-04 05:03] LABS: ALT (SGPT) 32 U/L (8-55); AST (SGOT) 40 U/L (5-34); Albumin 2.5 g/dL (3.5-5.0); Alkaline Phosphatase 120 U/L (40-110); Anion Gap 18 mmol/L (10-20); BUN (Urea Nitrogen) 43 mg/dL (7.0-18.7); Calc. Creatinine Clearance 46 mL/min (70-130); Calcium 9.5 mg/dL (7.8-10.44); Carbon Dioxide 25 mmol/L (22-29); Chloride 106 mmol/L (98-107); Globulin 1.1 g/dL (2.4-3.5); Glucose 202 mg/dL (70-105); Potassium 3.1 mmol/L (3.5-5.1); Protein, Total 3.6 g/dL (6.0-8.3); Sodium 146 mmol/L (136-145)
[2021-01-04] MEDS: Cinacalcet HCl 30 MG TAB PO SCH (09:00)
[2021-01-04] MEDS: Rifaximin 550 MG TAB PER TUBE SCH ×2 (09:00→21:39)
[2021-01-04] MEDS: Pantoprazole 40 MG VIAL IVP SCH ×2 (09:27→21:40)
[2021-01-04] MEDS: Hydrocortisone 10 mg Tablet PO SCH ×2 (09:28→21:40)
[2021-01-04] MEDS: Fludrocortisone Acetate 0.1 MG TAB PO SCH (09:30)
[2021-01-04] MEDS: Phytonadione 5 MG TAB PER TUBE SCH (09:30)
[2021-01-04] MEDS: Lidocaine 5% Patch TD SCH (10:07)
[2021-01-04] MEDS: Midodrine HCl 5 MG TAB PO SCH ×3 (10:09→21:39)
[2021-01-04] MEDS ORDERED: Potassium Chloride 20 MEQ in Premix Bag 1 BAG IVPB SCH (10:45)
[2021-01-04] MEDS: Norepinephrine 16 MG in Sodium Chloride 0.9% 250 ML 234 ML IVPB PRN (16:05)
[2021-01-04] MEDS: Octreotide Acetate 1,250 MCG in Sodium Chloride 0.9% 250 ML 250 ML IVPB SCH (19:21)
[2021-01-04 22:37] LABS: Hemoglobin 5.4 g/dL (12.0-16.0)
[2021-01-04] MEDS: Transdermal Patch Removal TOP SCH (23:46)
[2021-01-05 04:45] LABS: #Basophils 0.1 thou/uL (0.0-0.2); #Lymphocytes 1.2 thou/uL (1.20-3.40); #Neutrophils 16.5 thou/uL (1.40-6.50); %Basophils 0.4 % (0.0-1.0); %Eosinophils 0.2 % (0.0-10.0); %Lymphocytes 6.3 % (21.0-51.0); %Monocytes 5.1 % (0.0-10.0); Hemoglobin 7.4 g/dL (12.0-16.0); Mean Corpuscular Hemoglobin 32.2 pg (27.0-31.0); Mean Corpuscular Volume 94.7 fL (78.0-98.0); Mean Platelet Volume 9.2 fL (7.4-10.4); Platelet Count 53 thou/uL (130-400); RBC Distribution Width 19.3 % (11.5-14.5); Red Blood Cell (RBC) Count 2.31 mill/uL (4.20-5.40); White Blood Cell (WBC) Count 18.7 thou/uL (4.8-10.8)
[2021-01-05 04:52] LABS: INR-International Normal Ratio 2.8; Prothrombin Time 29.9 sec (12.0-14.7)
[2021-01-05 05:02] LABS: Anion Gap 17 mmol/L (10-20); BUN (Urea Nitrogen) 48 mg/dL (7.0-18.7); Calc. Creatinine Clearance 38 mL/min (70-130); Calcium 8.9 mg/dL (7.8-10.44); Carbon Dioxide 23 mmol/L (22-29); Chloride 110 mmol/L (98-107); Glucose 152 mg/dL (70-105); Sodium 147 mmol/L (136-145)
[2021-01-05 05:09] LABS: Potassium 2.9 mmol/L (3.5-5.1)
[2021-01-05] MEDS ORDERED: Potassium Bicarbonate/Cit Ac 20 MEQ TAB PER TUBE SCH (06:45)
[2021-01-05] MEDS: Cinacalcet HCl 30 MG TAB PO SCH (08:12)
[2021-01-05] MEDS: Fludrocortisone Acetate 0.1 MG TAB PO SCH (08:13)
[2021-01-05] MEDS: Midodrine HCl 5 MG TAB PO SCH ×3 (08:13→21:38)
[2021-01-05] MEDS: Rifaximin 550 MG TAB PER TUBE SCH ×2 (08:14→21:36)
[2021-01-05] MEDS: Pantoprazole 40 MG VIAL IVP SCH ×2 (08:14→21:37)
[2021-01-05] MEDS: Hydrocortisone 10 mg Tablet PO SCH ×2 (08:15→21:36)
[2021-01-05] MEDS: SODIUM CHLORIDE IV SCH ×2 (08:18→21:40)
[2021-01-05] MEDS: ADMIXTURE FEE IV SCH ×2 (08:18→21:40)
[2021-01-05] MEDS: VASOPRESSIN IV SCH ×2 (08:18→21:40)
[2021-01-05] MEDS: EPOETIN ALFA-EPBX (ESRD) 2,000 UNIT/ML VIAL SC SCH (10:29)
[2021-01-05] MEDS: EPOETIN ALFA-EPBX (ESRD) 3,000 UNIT/ML VIAL SC SCH (10:30)
[2021-01-05] MEDS: Phytonadione 5 MG TAB PER TUBE SCH (10:57)
[2021-01-05] MEDS: Lidocaine 5% Patch TD SCH (11:34)
[2021-01-05] MEDS: Octreotide Acetate 1,250 MCG in Sodium Chloride 0.9% 250 ML 250 ML IVPB SCH (13:07)
[2021-01-05] MEDS: Norepinephrine 16 MG in Sodium Chloride 0.9% 250 ML 234 ML IVPB PRN (17:35)
[2021-01-05] MEDS: Transdermal Patch Removal TOP SCH (23:07)
[2021-01-06 03:43] LABS: Hemoglobin 7.3 g/dL (12.0-16.0); Mean Corpuscular HGB CONC 35.3 g/dL (32.0-36.0); Mean Corpuscular Hemoglobin 33.3 pg (27.0-31.0); Mean Corpuscular Volume 94.3 fL (78.0-98.0); Platelet Count 53 thou/uL (130-400); RBC Distribution Width 20.3 % (11.5-14.5); Red Blood Cell (RBC) Count 2.17 mill/uL (4.20-5.40)
[2021-01-06 03:58] LABS: Anion Gap 19 mmol/L (10-20); BUN (Urea Nitrogen) 25 mg/dL (7.0-18.7); Calc. Creatinine Clearance 62 mL/min (70-130); Calcium 8.9 mg/dL (7.8-10.44); Carbon Dioxide 24 mmol/L (22-29); Chloride 105 mmol/L (98-107); Glucose 194 mg/dL (70-105); Potassium 3.2 mmol/L (3.5-5.1); Sodium 145 mmol/L (136-145)
[2021-01-06 04:15] LABS: Anisocytosis SLIGHT = 6-15 cells (100X) (0-5/hpf); Band 21 % (5-11); Eosinophils 1 % (0-10); Lymphocytes 6 % (21-51); MDiff Complete? YES; Mean Platelet Volume 10.1 fL (7.4-10.4); Monocytes 2 % (0-10); Neutrophil 70 % (42-75); Nucleated RBC 3 % (0); Platelet Morphology Comment Appears Decreased; Polychromasia SLIGHT = 2-3 cells (100X) (0-2/hpf); White Blood Cell (WBC) Count 23.6 thou/uL (4.8-10.8)
[2021-01-06] MEDS: HumaLOG 300 UNITS/3 ML VIAL SC PRN ×3 (04:41→16:18)
[2021-01-06] MEDS: Octreotide Acetate 1,250 MCG in Sodium Chloride 0.9% 250 ML 250 ML IVPB SCH (06:23)
[2021-01-06] MEDS: Potassium Bicarbonate/Cit Ac 20 MEQ TAB PER TUBE SCH ×2 (08:58→15:38)
[2021-01-06] MEDS: Fludrocortisone Acetate 0.1 MG TAB PO SCH (08:59)
[2021-01-06] MEDS: Cinacalcet HCl 30 MG TAB PO SCH (08:59)
[2021-01-06] MEDS: Pantoprazole 40 MG VIAL IVP SCH ×2 (09:00→22:03)
[2021-01-06] MEDS: Hydrocortisone 10 mg Tablet PO SCH ×2 (09:00→22:02)
[2021-01-06] MEDS: Rifaximin 550 MG TAB PER TUBE SCH ×2 (09:00→22:02)
[2021-01-06] MEDS: Midodrine HCl 5 MG TAB PO SCH ×3 (09:08→22:02)
[2021-01-06] MEDS: Lidocaine 5% Patch TD SCH (11:30)
[2021-01-06] MEDS: SODIUM CHLORIDE IV SCH ×2 (11:37→18:39)
[2021-01-06] MEDS: ADMIXTURE FEE IV SCH ×2 (11:37→18:39)
[2021-01-06] MEDS: VASOPRESSIN IV SCH ×2 (11:37→18:39)
[2021-01-06] MEDS: Norepinephrine 16 MG in Sodium Chloride 0.9% 250 ML 234 ML IVPB PRN (11:38)
[2021-01-06] MEDS: Morphine 4 MG/ML VIAL SLOW IVP PRN (16:11)
[2021-01-06] MEDS: Transdermal Patch Removal TOP SCH (23:09)
[2021-01-07] MEDS: VASOPRESSIN IV SCH ×3 (00:33→20:10)
[2021-01-07] MEDS: ADMIXTURE FEE IV SCH ×3 (00:33→20:10)
[2021-01-07] MEDS: SODIUM CHLORIDE IV SCH ×3 (00:33→20:10)
[2021-01-07 07:09] LABS: Hemoglobin 6.8 g/dL (12.0-16.0); Mean Corpuscular HGB CONC 32.5 g/dL (32.0-36.0); Mean Corpuscular Hemoglobin 31.9 pg (27.0-31.0); Mean Corpuscular Volume 98.1 fL (78.0-98.0); Platelet Count 63 thou/uL (130-400); RBC Distribution Width 21.4 % (11.5-14.5); Red Blood Cell (RBC) Count 2.12 mill/uL (4.20-5.40); White Blood Cell (WBC) Count 28.1 thou/uL (4.8-10.8)
[2021-01-07 07:38] LABS: Bilirubin, Total 45.3 mg/dL (0.2-1.2)
[2021-01-07 07:43] LABS: INR-International Normal Ratio 2.4; Prothrombin Time 26.4 sec (12.0-14.7)
[2021-01-07 07:46] LABS: ALT (SGPT) 27 U/L (8-55); AST (SGOT) 35 U/L (5-34); Albumin 2.4 g/dL (3.5-5.0); Alkaline Phosphatase 105 U/L (40-110); Anion Gap 19 mmol/L (10-20); BUN (Urea Nitrogen) 37 mg/dL (7.0-18.7); Calc. Creatinine Clearance 40 mL/min (70-130); Carbon Dioxide 23 mmol/L (22-29); Chloride 108 mmol/L (98-107); Globulin 0.9 g/dL (2.4-3.5); Glucose 186 mg/dL (70-105); Potassium 3.6 mmol/L (3.5-5.1); Protein, Total 3.3 g/dL (6.0-8.3); Sodium 146 mmol/L (136-145)
[2021-01-07] MEDS: Rifaximin 550 MG TAB PER TUBE SCH ×2 (09:48→20:10)
[2021-01-07] MEDS: Pantoprazole 40 MG VIAL IVP SCH ×2 (09:48→20:10)
[2021-01-07] MEDS: Cinacalcet HCl 30 MG TAB PO SCH (09:48)
[2021-01-07] MEDS: Fludrocortisone Acetate 0.1 MG TAB PO SCH (09:48)
[2021-01-07] MEDS: Hydrocortisone 10 mg Tablet PO SCH ×2 (09:48→20:12)
[2021-01-07] MEDS: Midodrine HCl 5 MG TAB PO SCH ×3 (09:50→20:10)
[2021-01-07] MEDS: Norepinephrine 16 MG in Sodium Chloride 0.9% 250 ML 234 ML IVPB PRN ×2 (09:54→20:11)
[2021-01-07] MEDS: Octreotide Acetate 1,250 MCG in Sodium Chloride 0.9% 250 ML 250 ML IVPB SCH ×2 (09:54→21:41)
[2021-01-07 10:18] VITALS: BP 107/36
[2021-01-07] MEDS ORDERED: Albumin 25% 25 GM/100 ML BOT IVPB SCH (10:45)
[2021-01-07] MEDS: EPOETIN ALFA-EPBX (ESRD) 3,000 UNIT/ML VIAL SC SCH (10:53)
[2021-01-07] MEDS: EPOETIN ALFA-EPBX (ESRD) 2,000 UNIT/ML VIAL SC SCH (10:53)
[2021-01-07] MEDS: Lidocaine 5% Patch TD SCH (11:40)
[2021-01-07] MEDS: Morphine 4 MG/ML VIAL SLOW IVP PRN (15:17)
[2021-01-07] MEDS: Transdermal Patch Removal TOP SCH (22:52)
[2021-01-08] MEDS: Morphine 4 MG/ML VIAL SLOW IVP PRN ×2 (05:07→15:15)
[2021-01-08] MEDS: Norepinephrine 16 MG in Sodium Chloride 0.9% 250 ML 234 ML IVPB PRN ×3 (05:09→21:35)
[2021-01-08 05:33] LABS: Hemoglobin 6.2 g/dL (12.0-16.0); Mean Corpuscular HGB CONC 32.2 g/dL (32.0-36.0); Mean Corpuscular Hemoglobin 31.1 pg (27.0-31.0); Mean Corpuscular Volume 96.6 fL (78.0-98.0); Mean Platelet Volume 10.1 fL (7.4-10.4); Platelet Count 58 thou/uL (130-400); RBC Distribution Width 22.1 % (11.5-14.5); Red Blood Cell (RBC) Count 1.99 mill/uL (4.20-5.40); White Blood Cell (WBC) Count 26.8 thou/uL (4.8-10.8)
[2021-01-08 05:55] LABS: ALT (SGPT) 31 U/L (8-55); AST (SGOT) 60 U/L (5-34); Albumin 2.5 g/dL (3.5-5.0); Alkaline Phosphatase 112 U/L (40-110); Anion Gap 23 mmol/L (10-20); BUN (Urea Nitrogen) 25 mg/dL (7.0-18.7); Calc. Creatinine Clearance 61 mL/min (70-130); Calcium 8.9 mg/dL (7.8-10.44); Carbon Dioxide 20 mmol/L (22-29); Chloride 105 mmol/L (98-107); Globulin 0.8 g/dL (2.4-3.5); Glucose 122 mg/dL (70-105); Potassium 3.9 mmol/L (3.5-5.1); Protein, Total 3.3 g/dL (6.0-8.3); Sodium 144 mmol/L (136-145)
[2021-01-08] MEDS: SODIUM CHLORIDE IV SCH ×2 (06:23→15:51)
[2021-01-08] MEDS: ADMIXTURE FEE IV SCH ×2 (06:23→15:51)
[2021-01-08] MEDS: VASOPRESSIN IV SCH ×2 (06:23→15:51)
[2021-01-08] MEDS: Fludrocortisone Acetate 0.1 MG TAB PO SCH (08:50)
[2021-01-08] MEDS: Hydrocortisone 10 mg Tablet PO SCH ×2 (08:50→20:14)
[2021-01-08] MEDS: Midodrine HCl 5 MG TAB PO SCH ×3 (08:50→20:14)
[2021-01-08] MEDS: Cinacalcet HCl 30 MG TAB PO SCH (08:50)
[2021-01-08] MEDS: Pantoprazole 40 MG VIAL IVP SCH ×2 (08:51→20:05)
[2021-01-08] MEDS: Rifaximin 550 MG TAB PER TUBE SCH ×2 (08:51→20:05)
[2021-01-08] MEDS: Lidocaine 5% Patch TD SCH (10:34)
[2021-01-08 10:41] VITALS: BMI 29.0
[2021-01-08] MEDS ORDERED: Phytonadione 10 MG/ML AMP PO SCH (12:00)
[2021-01-08] MEDS: Phytonadione 5 MG TAB PO SCH (13:41)
[2021-01-08] MEDS: Octreotide Acetate 1,250 MCG in Sodium Chloride 0.9% 250 ML 250 ML IVPB SCH (15:51)
[2021-01-08] MEDS: Dextrose 50% Abboject 50 ML SYRINGE IVP PRN ×2 (17:50→23:28)
[2021-01-08] MEDS: Transdermal Patch Removal TOP SCH (23:29)
[2021-01-09] MEDS: ADMIXTURE FEE IV SCH ×2 (01:07→08:59)
[2021-01-09] MEDS: VASOPRESSIN IV SCH ×2 (01:07→08:59)
[2021-01-09] MEDS: SODIUM CHLORIDE IV SCH ×2 (01:07→08:59)
[2021-01-09 04:46] LABS: Mean Corpuscular HGB CONC 31.6 g/dL (32.0-36.0); Mean Corpuscular Hemoglobin 30.2 pg (27.0-31.0); Mean Corpuscular Volume 95.6 fL (78.0-98.0); Mean Platelet Volume 10.4 fL (7.4-10.4); Platelet Count 64 thou/uL (130-400); RBC Distribution Width 23.5 % (11.5-14.5); Red Blood Cell (RBC) Count 2.31 mill/uL (4.20-5.40); White Blood Cell (WBC) Count 34.7 thou/uL (4.8-10.8)
[2021-01-09 04:55] LABS: Prothrombin Time 64.6 sec (12.0-14.7)
[2021-01-09 05:10] LABS: ALT (SGPT) 643 U/L (8-55); AST (SGOT) 2712 U/L (5-34); Albumin 2.4 g/dL (3.5-5.0); Alkaline Phosphatase 151 U/L (40-110); Anion Gap 28 mmol/L (10-20); BUN (Urea Nitrogen) 33 mg/dL (7.0-18.7); Calc. Creatinine Clearance 41 mL/min (70-130); Calcium 10.3 mg/dL (7.8-10.44); Carbon Dioxide 13 mmol/L (22-29); Chloride 108 mmol/L (98-107); Globulin 0.8 g/dL (2.4-3.5); Glucose 59 mg/dL (70-105); INR-International Normal Ratio 7.4; Potassium 4.3 mmol/L (3.5-5.1); Protein, Total 3.2 g/dL (6.0-8.3); Sodium 145 mmol/L (136-145)
[2021-01-09 05:12] LABS: Bilirubin, Total 40.5 mg/dL (0.2-1.2)
[2021-01-09] MEDS: Dextrose 50% Abboject 50 ML SYRINGE IVP PRN (05:19)
[2021-01-09] MEDS: Norepinephrine 16 MG in Sodium Chloride 0.9% 250 ML 234 ML IVPB PRN (05:33)
[2021-01-09] MEDS: Phytonadione 5 MG TAB PO SCH (09:13)
[2021-01-09] MEDS: Cinacalcet HCl 30 MG TAB PO SCH (09:14)
[2021-01-09] MEDS: Rifaximin 550 MG TAB PER TUBE SCH (09:15)
[2021-01-09] MEDS: Hydrocortisone 10 mg Tablet PO SCH (09:17)
[2021-01-09] MEDS: Pantoprazole 40 MG VIAL IVP SCH (09:19)
[2021-01-09] MEDS: Midodrine HCl 5 MG TAB PO SCH (09:35)
[2021-01-09] MEDS: Octreotide Acetate 1,250 MCG in Sodium Chloride 0.9% 250 ML 250 ML IVPB SCH (09:52)
[2021-01-09] MEDS: EPOETIN ALFA-EPBX (ESRD) 3,000 UNIT/ML VIAL SC SCH (09:59)
[2021-01-09] MEDS: EPOETIN ALFA-EPBX (ESRD) 2,000 UNIT/ML VIAL SC SCH (09:59)
[2021-01-09] MEDS: Lidocaine 5% Patch TD SCH (10:01)
[2021-01-09 10:19] VITALS: TEMP 96.9
== END 2021-01-09 14:50 | disposition expired | DRG 870 ==
LOC: ERS 21:48 → ERHOLD 11-26 00:10 → CCU 11-26 02:55 → T4-B 12-14 14:06 → CCU 12-17 19:50
PROVIDERS: ADMIT Student in an Organized Health Care Education/Training Program; ATTEND Hospitalist
PROC: 06HY33Z Insertion of Infusion Device into Lower Vein, Percutaneous Approach (ICD-10-PCS; 2020-11-26)
PROC: 3E033XZ Introduction of Vasopressor into Peripheral Vein, Percutaneous Approach (ICD-10-PCS; 2020-11-26)
PROC: 5A1D70Z Performance of Urinary Filtration, Intermittent, Less than 6 Hours Per Day (ICD-10-PCS; 2020-11-26)
PROC: 5A1955Z Respiratory Ventilation, Greater than 96 Consecutive Hours (ICD-10-PCS; principal; 2020-11-27)
PROC: 04HY32Z Insertion of Monitoring Device into Lower Artery, Percutaneous Approach (ICD-10-PCS; 2020-11-27)
PROC: 0BH18EZ Insertion of Endotracheal Airway into Trachea, Via Natural or Artificial Opening Endoscopic (ICD-10-PCS; 2020-11-27)
PROC: 0D9670Z Drainage of Stomach with Drainage Device, Via Natural or Artificial Opening (ICD-10-PCS; 2020-11-27)
PROC: 4A133B1 Monitoring of Arterial Pressure, Peripheral, Percutaneous Approach (ICD-10-PCS; 2020-11-27)
PROC: 4A133J1 Monitoring of Arterial Pulse, Peripheral, Percutaneous Approach (ICD-10-PCS; 2020-11-27)
PROC: 30233N1 Transfusion of Nonautologous Red Blood Cells into Peripheral Vein, Percutaneous Approach (ICD-10-PCS; 2020-11-28)
PROC: 30233R1 Transfusion of Nonautologous Platelets into Peripheral Vein, Percutaneous Approach (ICD-10-PCS; 2020-12-22)
PROC: 30233K1 Transfusion of Nonautologous Frozen Plasma into Peripheral Vein, Percutaneous Approach (ICD-10-PCS; 2020-12-31)
DX: A41.9 Sepsis, unspecified organism (principal); L89.213 Pressure ulcer of right hip, stage 3; G92 Toxic encephalopathy; K72.00 Acute and subacute hepatic failure without coma; N18.6 End stage renal disease; R65.21 Severe sepsis with septic shock; D65 Disseminated intravascular coagulation [defibrination syndrome]; J96.02 Acute respiratory failure with hypercapnia; J96.01 Acute respiratory failure with hypoxia; K25.4 Chronic or unspecified gastric ulcer with hemorrhage; I12.0 Hypertensive chronic kidney disease with stage 5 chronic kidney disease or end stage renal disease; E87.1 Hypo-osmolality and hyponatremia; N25.81 Secondary hyperparathyroidism of renal origin; I48.92 Unspecified atrial flutter; K76.6 Portal hypertension; R18.8 Other ascites; K56.7 Ileus, unspecified; D62 Acute posthemorrhagic anemia; E87.0 Hyperosmolality and hypernatremia; T82.838A Hemorrhage due to vascular prosthetic devices, implants and grafts, initial encounter; N17.9 Acute kidney failure, unspecified; Z66 Do not resuscitate; Z20.822 Contact with and (suspected) exposure to COVID-19; E80.6 Other disorders of bilirubin metabolism; E87.5 Hyperkalemia; D63.1 Anemia in chronic kidney disease; L89.312 Pressure ulcer of right buttock, stage 2; I48.91 Unspecified atrial fibrillation; E66.01 Morbid (severe) obesity due to excess calories; B18.2 Chronic viral hepatitis C; E87.70 Fluid overload, unspecified; E16.2 Hypoglycemia, unspecified; M25.851 Other specified joint disorders, right hip; G47.30 Sleep apnea, unspecified; J44.9 Chronic obstructive pulmonary disease, unspecified; I86.8 Varicose veins of other specified sites; E87.6 Hypokalemia; K74.69 Other cirrhosis of liver; E83.52 Hypercalcemia; I46.9 Cardiac arrest, cause unspecified; Z53.29 Procedure and treatment not carried out because of patient's decision for other reasons; Z99.2 Dependence on renal dialysis; Z98.890 Other specified postprocedural states; Z88.8 Allergy status to other drugs, medicaments and biological substances; Z79.899 Other long term (current) drug therapy; Z68.30 Body mass index [BMI] 30.0-30.9, adult; Z91.14 Patient's other noncompliance with medication regimen; Z78.1 Physical restraint status; Z91.15 Patient's noncompliance with renal dialysis; Z98.51 Tubal ligation status; Z83.3 Family history of diabetes mellitus; Z84.1 Family history of disorders of kidney and ureter; Y83.8 Other surgical procedures as the cause of abnormal reaction of the patient, or of later complication, without mention of misadventure at the time of the procedure
CPT/HCPCS: 36415; 36416; 36430; 36556; 36600; 51702; 70450; 71045; 74177; 76705; 80048; 80053; 80202; 80400; 82040; 82105; 82140; 82247; 82550; 82553; 82805; 83605; 83690; 83735; 83970; 84100; 84443; 84484; 85014; 85018; 85025; 85027; 85049; 85300; 85362; 85379; 85384; 85610; 85730; 86140; 86850; 86900; 86901; 87040; 87070; 87205; 87340; 90935; 93005; 93010; 93306; 94002; 94003; 94640; 94760; 96365; 96366; 96368; 96376; C9113; G0257; J0171; J0692; J0696; J0834; J1450; J1610; J1720; J1815; J2060; J2185; J2270; J2354; J2405; J2765; J2916; J3010; J3370; J3411; J3430; J3480; J3489; J3490; J7050; J7070; J7620; P9016; P9035; P9045; P9047; P9059; Q5105; Q9967; U0002